=== PATIENT | male | born 1970 | race Caucasian/White ===

== ENCOUNTER 2022-12-19 12:06 | Outpatient (AMB) | payer OTHER, SELFPAY ==
[2022-12-19 12:10] VITALS: BP 140/82; PULSE 121; O2SAT 96; BMI 15.9
--- NOTE | 2022-12-19 12:10 | A.OFFPC_ITS ---
Vital Signs 12/19/22 12:10 Height 5 ft 9 in Weight 107 lb 8 oz BMI 15.9 BP 140/82 H Blood Pressure Location Lt brachial Position Sitting Pulse 121 H Pulse Source Pulse Oximeter Pulse Oximetry (%) 96 Oxygen Delivery Method Room Air Intake Visit Reasons: Extended exam with f/u labs and health maint. Intake Note: Patient is here for his physical today. Allergies No Known Allergies [No Known Allergies*] Allergy (Verified 12/19/22 12:13) Tobacco use date assessed: 07/17/22 Dental Screening Dental Screen Date: 12/19/22 Did you have a dental visit in the last 12 months?: No Did you have a dental problem in the last 6 months where you did not have access to dental care?: No Was dental information given to patient?: Yes HPI Extended exam with f/u labs and health maint. HPI Details 52 y/o male presents for an extended exam with f/u labs and health main tenance. No recent labs to review. Blood pressure today 140/82. [facility] Social History (Reviewed 12/19/22 @ 12:16 by Lolly Hernandez [facility]) Housing: House Patient Tobacco Use Status: Current everyday Tobacco user Cigarettes Per Day: 2 e-Cigarette/Vaping Use: Never Used service: No Current occupational status: unemployed Current occupational exposures/hazards: No Cognitive needs: No Hearing needs: No Vision needs: No Questionnaire PHQ-9 Over the last 2 weeks, how often have you been bothered by any of the following problems? 1. Little interest or pleasure in doing things: not at all 2. Feeling down, depressed, or hopeless: several days 3. Trouble falling or staying asleep, or sleeping too much: more than half the days 4. Feeling tired or having little energy: not at all 5. Poor appetite or overeating: several days 6. Feeling bad about yourself - or that you are a failure or have let yourself or your family down: several days 7. Trouble concentrating on things, such as reading the newspaper or watching television: not at all 8. Moving or speaking so slowly that other people could have noticed. Or the opposite - being so fidgety or restless that you have been moving around a lot more than usual: not at all 9. Thoughts that you would be better off or of hurting yourself in some way: not at all Total score: 5 Source: Developed by Drs. Yusuf Damon, Lizzeth Rouse, Mick Guallpa and colleagues, with an educational lorelei from [employer]. TAMMY-7 AMB Questionnaire TAMMY-7 Date TAMMY - 7 assessed: 12/19/22 Feeling nervous, anxious, or on edge: 2 = More than half the days Not being able to stop or control worryin = More than half the days Worrying too much about different things: 2 = More than half the days Trouble relaxin = Not at all Being so restless that it is hard to sit still: 0 = Not at all Becoming easily annoyed or irritable: 0 = Not at all Feeling afraid as if something awful might happen: 0 = Not at all Total TAMMY-7 score (0-4 normal; 5-9 mild; 10-14 moderate; 15-21 severe): 6 Source: Developed by Drs. Yusuf Damon, Lizzeth Rouse, Mick Guallpa and colleagues, with an educational lorelei from [employer]. Review of Systems Const Denies chills, Denies fatigue, Denies fever(s), Denies headache(s) and Denies weakness Eyes Denies change in vision ENT Denies dizziness, Denies headache(s), Denies hearing loss, Denies nasal congestion, Denies sinus pain, Denies sinus pressure and Denies sore throat Card Denies chest pain, Denies lightheadedness, Denies dyspnea and Denies other (palpitations) Resp Denies cough, Denies dyspnea and Denies wheezing GI Denies abdominal pain, Denies melena, Denies hematochezia, Denies change in bowel habits, Denies dyspepsia and Denies nausea Denies hematuria and Denies dysuria Musc Denies abnormal gait, Denies myalgias, Denies arthralgias, Denies numbness and Denies tingling Skin/Breast Denies rash, Denies unusual bruising and Denies wounds Neuro Denies abnormal gait, Denies dizziness, Denies headache(s), Denies memory loss, Denies numbness, Denies Sensory deficit (Neuro), Denies tingling and Denies weakness Psych Denies anxiety, Denies depression and Denies memory loss Endo Denies cold intolerance, Denies fatigue, Denies heat intolerance, Denies polydipsia and Denies polyuria Edward/Lymph Denies easy bleeding and Denies easy bruising Aller/Immun Denies wheezing Physical exam (Primary Care) Vital Signs: Last Vital Signs Pulse 121 H 12/19/22 12:10 BP 140/82 H 12/19/22 12:10 Pulse Ox 96 12/19/22 12:10 Oxygen Delivery Method Room Air 12/19/22 12:10 BMI result Body Mass Index 15.9 Tobacco/Smoking Status: Tobacco use Status Tobacco use date assessed 07/17/22 12/19/22 12:22 Patient Tobacco Use Status Current everyday Tobacco 12/19/22 12:22 e-Cigarette/Vaping Use Never Used 12/19/22 12:22 PHQ-9: PHQ-9 Score PHQ-9: Total score 5 12/19/22 12:22 Const General: no acute distress, well developed, alert and awake Nutritional Appearance: underweight Orientation/consciousness: patient oriented x3 HENMT Head: Yes normocephalic and Yes atraumatic Ears: hearing grossly normal bilaterally and TM's normal bilaterally General nose exam: Normal external nose present and Normal nares present Mouth: Normal oral and palatal mucosa present and moist mucous membranes Teeth and gingiva: dentition normal Throat: Yes posterior oropharynx normal Eyes General: appearance normal, both eyes and all related structures Pupils: Equal, round and reactive pupils present and Pupil accommodation reflex normal EOM: EOMs intact bilaterally Neck Neck: Yes normal visual inspection, Yes no lymphadenopathy and Yes trachea midline Thyroid: Thyroid normal Carotids: no bruits Lymphatic: no lymphadenopathy noted Chest Chest palpation & inspection: normal inspection of the chest Resp Effort & Inspection: normal respiratory effort Auscultation: clear to auscultation bilaterally Cardio Rate: regular rate Rhythm: regular rhythm Heart sounds: S1 normal heart sound present, S2 normal heart sound present, no gallops, no murmurs and no rubs Bruits: no abdominal aortic bruits and no carotid bruits GI Palpation (GI): No Abdominal aortic bruit present, Soft to palpation, nontender, No hepatosplenomegaly present and No Rebound tenderness present Auscultation: normal bowel sounds General: Yes no CVA tenderness Back/Spine/Pelvis Back: no CVA tenderness Cervical Spine: cervical ROM normal and No Cervical spine tenderness Thoracic/Lumbar Spine: thoraco-lumbar ROM normal, No pain with thoraco-lumbar ROM, No thoracic spinal tenderness and No lumbar spinal tenderness Skin Lesions: no lesions Rashes: no rashes Trauma: no lacerations or abrasions Wounds: no wounds Nails: normal Neuro General: patient oriented x3 Cranial nerves: Yes Equal, round and reactive pupils present Cognition (Neuro): normal cognition Gait exam (Neuro): Normal gait present Motor exam (neuro): 5/5 motor strength present throughout Sensory Exam: No Sensory deficit (Neuro) Deep tendon reflexes (DTR's): Right patellar reflex intensity grade: 2+ and Left patellar reflex intensity grade: 2+ Extrem General: Yes normal to inspection and No edema Psych Appearance: grossly normal Affect: normal affect Attitude: cooperative Thought process: Normal thought process present Assessment and Plan Assessment & Plan (1) Hypertension: Code(s): I10 - Essential (primary) hypertension Plan: Goal is less than 140/90 Will give him metoprolol ER 25 daily (2) Alcohol use: Code(s): Z78.9 - Other specified health status Plan: Patient says he is working on this and I encouraged weaning and cessation (3) Tachycardia: Code(s): R00.0 - Tachycardia, unspecified Plan: Check EKG As above will use metoprolol (4) Failure to thrive in adult: Code(s): R62.7 - Adult failure to thrive Plan: Patient is severely underweight Start Ensure Will follow-up (5) Screening for colon cancer: Code(s): Z12.11 - Encounter for screening for malignant neoplasm of colon Plan: Refer to Gastroenterology for 1st screening colonoscopy (6) Screening for prostate cancer: Code(s): Z12.5 - Encounter for screening for malignant neoplasm of prostate Plan: Check PSA (7) Adult general medical exam: Code(s): Z00.00 - Encounter for general adult medical examination without abnormal findings Orders: Orders ECG 12 lead EKG Today I10 - Essential (primary) hypertension, R00.0 - Tachycardia, unspecified Medications: New metoprolol succinate ER 25 mg PO DAILY 30 days 30 tabs 2RF food supplemt, lactose-reduced (Ensure oral liquid) 1 ea PO DAILY 30 days 7,110 mL 4RF J44.9 - Chronic obstructive pulmonary disease, unspecified, R62.7 - Adult failure to thrive, R63.6 - Underweight food supplemt, lactose-reduced (Ensure oral liquid) 1 ea PO DAILY 30 days 7,110 mL 4RF J44.9 - Chronic obstructive pulmonary disease, unspecified, R62.7 - Adult failure to thrive, R63.6 - Underweight Coding Level of Care Code Est Pt Level 4 (16825) Diagnoses Hypertension I10 Alcohol use Z78.9 Tachycardia R00.0 Failure to thrive in adult R62.7 Screening for colon cancer Z12.11 Screening for prostate cancer Z12.5 Adult general medical exam Z00.00
[2022-12-19 14:29] LABS: MANUAL DIFF FLAG NO
[2022-12-19 14:31] LABS: Basophils Absolute Auto 0.1 X10*3/uL (0.0-0.2); Basophils Percent Auto 0.7 % (0-2); Eosinophils Absolute Auto 0.1 X10*3/uL (0.0-0.4); Eosinophils Percent Auto 0.6 % (0-4); Hematocrit 47.2 % (42.0-52.0); Hemoglobin 16.5 g/dl (14.0-18.0); Imm Gran Abs Auto 0.03 X10*3/uL (0.00-0.03); Imm Gran Pct Auto 0.3 % (0.0-0.4); Lymphocytes Absolute Auto 1.9 X10*3/uL (1.2-4.9); Lymphocytes Percent Auto 17.6 % (20-40); Mean Corpuscular Hemoglobin 34.4 pg (27.0-33.0); Mean Corpuscular Volume 98.3 fL (80.0-98.0); Mean Platelet Volume 10.7 fL (9.4-12.4); Monocytes Absolute Auto 0.7 X10*3/uL (0.1-1.2); Monocytes Percent Auto 6.7 % (2-11); Neutrophils Percent Auto 74.1 % (45-73); Platelet Count 292 X10*3/uL (160-400); Red Cell Distribution Width 11.6 % (11.0-16.0); White Blood Count 10.8 X10*3/uL (4.8-10.8)
[2022-12-19 15:36] LABS: Prostate Specific Antigen Scr 1.46 ng/mL (<0.05-4.0)
[2022-12-19 15:44] LABS: Alanine Aminotransferase 22 U/L (0-40); Albumin Level 4.2 g/dL (3.5-5.0); Alkaline Phosphatase 88 U/L (39-117); Anion Gap 16 (12-20); Aspartate Amino Transferase 29 U/L (5-37); Bilirubin Total 0.4 mg/dL (0.0-1.0); Blood Urea Nitrogen 9 mg/dL (9-16); Calcium 9.5 mg/dL (8.4-10.2); Carbon Dioxide 27 mmol/L (22-29); Chloride 102 mmol/L (96-108); Cholesterol 154 mg/dL; Creatinine Clr Calc Pharmacy 89.6; Estimated Glomerular Filt Rate > 60; Glucose Fasting 98 mg/dL (60-99); HDL Cholesterol 71 mg/dL; LDL Cholesterol Calculated 71 mg/dl; Potassium 4.3 mmol/L (3.3-5.1); Sodium 141 mmol/L (135-145); Total Protein 7.2 g/dL (6.5-8.0); Triglycerides 64 mg/dL
== END 2022-12-19 13:18 | disposition home or self-care (01) ==
PROVIDERS: PCP Family Medicine; Visit Provider Family Medicine
DX: I10 Essential (primary) hypertension (principal); Z78.9 Other specified health status; R00.0 Tachycardia, unspecified; R62.7 Adult failure to thrive; Z12.11 Encounter for screening for malignant neoplasm of colon; Z12.5 Encounter for screening for malignant neoplasm of prostate; Z00.00 Encounter for general adult medical examination without abnormal findings
CPT/HCPCS: 99214

== ENCOUNTER 2023-09-25 10:36 | Emergency (ER) | payer OTHER, SELFPAY ==
--- NOTE | ~2023-09-25 | XR_ITS ---
EXAMINATION: XR CHEST CLINICAL INFORMATION: Dyspnea. COMPARISON: Most recent CTA chest dated 06/08/2019. TECHNIQUE: 2 views of the chest were obtained. FINDINGS: Diffuse emphysematous changes are redemonstrated with scarring in the right upper lobe, similar when compared to the prior examination. Chronic interstitial prominence is unchanged. No new focal airspace consolidation. No pleural effusion or pneumothorax. Stable cardiomediastinal silhouette. XR/XR chest 2V IMPRESSION: 1. No acute cardiopulmonary findings. 2. Diffuse emphysematous changes with right upper lobe scarring, unchanged.
[2023-09-25 11:18] VITALS: BP 142/96; PULSE 120; RESP 20; TEMP 36.6; O2SAT 93; BMI 15.5
--- NOTE | 2023-09-25 11:18 | ED_ITS ---
HPI - General Adult General Chief complaint: Dyspnea Stated complaint: SOB Time Seen by Provider: 09/25/23 21:21 Source: patient Mode of arrival: ambulatory Limitations: no limitations History of Present Illness HPI narrative: Patient comes to the emergency room complaining of couple of months of wheezing, shortness of breath with exertion. Patient states that he is running out of his inhalers, Spiriva and albuterol. Patient denies any fever or chills. Patient states that coughing is at baseline. Related Data Previous Rx's ?Medication ?Instructions ?Recorded fluticasone propionate 50 1 inh inhalation Q12H 30 days #60 07/17/22 mcg/actuation blister powder for ea inhalation (Flovent Diskus) ipratropium 0.5 mg-albuterol 3 mg 3 ml inhalation Q6-8H PRN wheezing 07/17/22 (2.5 mg base)/3 mL nebulization 30 days #180 mL soln albuterol sulfate 90 mcg/actuation 2 puff inhalation Q4-6H PRN 07/18/22 aerosol inhaler (Ventolin HFA) shortness of breath or wheezing #8.5 grams albuterol sulfate 90 mcg/actuation 2 puff inhalation Q4-6H PRN 07/23/22 aerosol inhaler (ProAir HFA) shortness of breath or wheezing 30 days #8.5 grams metoprolol succinate 25 mg 25 mg PO DAILY 30 days #30 tabs 12/19/22 tablet,extended release 24 hr food supplemt, lactose-reduced 1 ea PO DAILY 30 days #7,110 mL 02/01/23 (Ensure oral liquid) albuterol sulfate 90 mcg/actuation 2 puff inhalation Q4-6H PRN 09/25/23 aerosol inhaler shortness of breath or wheezing #8.5 grams doxycycline hyclate 100 mg capsule 100 mg PO BID #10 caps 09/25/23 prednisone 50 mg tablet 50 mg PO DAILY #4 tabs 09/25/23 tiotropium bromide 1.25 2 puff inhalation BEDTIME #4 grams 09/25/23 mcg/actuation mist for inhalation (Spiriva Respimat) Allergies Allergy/AdvReac Type Severity Reaction Status Date / Time No Known Allergies Allergy Verified 09/25/23 11:19 [No Known Allergies*] Review of Systems 2 Review of Systems: Constitutional : No Weight loss, No Fever, No Chills, No Night Sweats, No Fatigue, No Malaise ENT/Mouth : No Hearing loss, No Ear Pain, No Nasal Congestion, No Sinus Pain, No Hoarseness, No sore throat, No Rhinorrhea, No Swallowing Difficulty Eyes: No Eye Pain, No Swelling, No Redness, No Foreign Body, No Discharge, No Vision Changes Cardiovascular : No Chest Pain, No SOB, No Dyspnea on Exertion, No Orthopnea, No Edema, No Palpitations Respiratory : Complaining of cough at baseline, more wheezing than usual, running out of inhalers Gastrointestinal : No Nausea, No Vomiting, No Diarrhea, No Constipation, No abdominal Pain, No Hematochezia, No Melena Genitourinary : no irregular bleeding, No Dysuria, No Urinary Frequency, No Hematuria, No Urinary Incontinence, No Urgency, No Flank Pain, No Urinary Flow Changes, No Hesitancy Musculoskeletal : No joint pain, No Myalgias, No Joint Swelling Skin : No Skin Lesions, No rash Neuro : No Weakness, No Numbness, No Paresthesias, No Loss of Consciousness, No Dizziness, No Headache Psych : No Anxiety/Panic, No Depression, No SI/HI/AH/VH, No Social Issues, Heme/Lymph: No Bruising, No Bleeding,No Lymphadenopathy Endocrine : No Polyuria, No Polydipsia, No Temperature Intolerance [facility] Past Medical History Medical History (Updated 09/25/23 @ 23:15 by Michelle Ram MD) Alcohol use Hypertension COPD (chronic obstructive pulmonary disease) Social History Social History Housing: House Patient Tobacco Use Status: Current everyday Tobacco user Cigarettes Per Day: 2 e-Cigarette/Vaping Use: Never Used Advance Directives: No Advance Directives Information Provided: No service: No Current occupational status: unemployed Current occupational exposures/hazards: No Cognitive needs: No Hearing needs: No Vision needs: No Physical Exam ED Vital Signs: Vital Signs - 24 hr 09/25/23 11:18 09/25/23 21:21 Temperature 97.8 F 97.9 F Pulse Rate 120 H 101 H Respiratory Rate 20 19 Blood Pressure 142/96 H 168/97 H Pulse Oximetry 93 94 Oxygen Delivery Method Room Air Room Air BMI result Body Mass Index 15.5 Const Other: Appearance: Alert. Oriented X3. No acute distress. Eyes: Pupils equal, round and reactive to light. ENT: Pharynx normal. Neck: Normal inspection. Neck supple. No lymph nodes noted. No crepitus CVS: Normal heart rate and rhythm. Pulses normal. Normal S1 and S2 Respiratory: No respiratory distress. Decreased breath sounds bilaterally, bilateral wheezing, no rales or crackles Abdomen: Soft and nontender. No rigidity. No distention. Skin: Skin warm and dry. Normal skin color. Normal skin turgor. Extremities: No lower extremity edema. No Lacerations. No Rash Neuro: Oriented X 3. No motor deficit. No sensory deficit. Moving all extremities. No slurred speech. CN 2 through 12 grossly intact Psych: calm, cooperative, normal affect Course Course Course Narrative: This is a rapid medical exam performed by Rufus Lozoya NP: Additional HPI, ROS, PE not included below will be deferred to primary provider. Patient is a 53-year-old male with history of HTN, smoking, alcohol use, COPD presenting to the ED with complaint of shortness of breath. States he has been out of his COPD medications/inhalers for about one month. States breathing hasn't been good for a long time, has not seen PCP for over a year. Presenting today at urging of brother. Lung sounds diminished throughout with inspiratory and expiratory wheezing, tachycardic, speaking easily in full sentences. Plan: viral swabs, labs, EKG, CXR Medications Administered Discontinued Medications Generic Name Dose Route Start Last Admin Trade Name Freq PRN Reason Stop Dose Admin Doxycycline Monohydrate 100 mg 09/25/23 21:32 09/25/23 21:49 Doxycycline Monohydrate 100 Mg Capsule PO 09/25/23 21:33 100 mg ONCE ONE Administration Sodium Chloride 1,000 mls @ 999 mls/hr 09/25/23 21:32 09/25/23 21:49 Ns IVCONT 09/25/23 22:32 999 mls/hr .Q1H1M ONE Administration Methylprednisolone Sodium Succinate 125 mg 09/25/23 21:32 09/25/23 21:49 Methylprednisolone Sod Succ 125 Mg/2 Ml Vial IVPUSH 09/25/23 21:33 125 mg ONCE ONE Administration Medical Decision Making Medical Decision Making MDM Narrative: -my interpretation of labs, hematology shows an increased hemoglobin and hematocrit, patient does seem to be dehydrated, patient admits to drinking alcohol another enough water. -patient mildly wheezing at this time, patient states that this time he feels well and declined a nebulization treatment, patient agreeable to IV Solu-Medrol and IV fluids. -my interpretation of chest x-ray: No obvious signs of pneumonia, hyperinflated lungs bilaterally -patient was ambulated in the emergency room, oxygen saturation did not drop below 91% -patient has chronic bronchitis, given the length of his symptoms, patient was given doxycycline. -also, patient was giving a referral/information to schedule an appointment with pulmonology Differential Diagnosis Differential Diagnoses: The differential diagnosis associated with the presentation includes (COPD, viral URI, COVID, influenza, deconditioning) Admission/Observation Consideration of admission/observation: Escalation of care including admission/observation considered (Given patient's history and length of symptoms, observation considered) Lab Data MDM Lab Attestation statement: I reviewed the patient's lab results. 09/25/23 11:49 09/25/23 11:49 Labs: Lab Results 09/25/23 09/25/23 09/25/23 Range/Units 11:49 21:47 21:53 WBC 10.5 (4.8-10.8) X10*3/uL RBC 5.36 (4.60-5.80) X10*6/uL Hgb 18.7 H (14.0-18.0) g/dl Hct 53.5 H (42.0-52.0) % MCV 99.8 H (80.0-98.0) fL MCH 34.9 H (27.0-33.0) pg MCHC 35.0 (31.0-36.0) g/dl RDW 12.7 (11.0-16.0) % Plt Count 256 (160-400) X10*3/uL MPV 10.2 (9.4-12.4) fL Immature Gran % (Auto) 0.4 (0.0-0.4) % Neut % (Auto) 76.2 H (45-73) % Lymph % (Auto) 12.9 L (20-40) % Wolfe % (Auto) 8.8 (2-11) % Eos % (Auto) 0.9 (0-4) % Baso % (Auto) 0.8 (0-2) % Lymph # (Auto) 1.4 (1.2-4.9) X10*3/uL Wolfe # (Auto) 0.9 (0.1-1.2) X10*3/uL Eos # (Auto) 0.1 (0.0-0.4) X10*3/uL Baso # (Auto) 0.1 (0.0-0.2) X10*3/uL Abs Immat Gran (auto) 0.04 H (0.00-0.03) X10*3/uL Absolute Neuts (auto) 8.0 (2.0-8.3) x10*3/uL Absolute Nucleated RBC 0.000 (0.0-0.012) X10*3/uL Nucleated RBC % (auto) 0.0 (0.0-0.2) /100WBC VBG pH 7.41 (7.32-7.43) VBG pCO2 51 mmHg VBG pO2 58 mmHg VBG HCO3 33 H (22-26) mmol/L VBG O2 Saturation 90.0 % VBG Base Excess 7.1 mmol/L Sodium 140 (135-145) mmol/L Potassium 4.1 (3.3-5.1) mmol/L Chloride 96 (96-108) mmol/L Carbon Dioxide 31 H (22-29) mmol/L Anion Gap 17 (12-20) BUN 5 L (9-16) mg/dL Creatinine 0.71 (0.5-1.4) mg/dL Estim Creat Clear Calc 78.9 Estimated GFR > 60 Random Glucose 98 (60-115) mg/dL Calcium 9.8 (8.4-10.2) mg/dL Total Bilirubin 0.5 (0.0-1.0) mg/dL AST 22 (5-37) U/L ALT 14 (0-40) U/L Alkaline Phosphatase 121 H (39-117) U/L B-Natriuretic Peptide 15 (<100) pg/mL Total Protein 7.9 (6.5-8.0) g/dL Albumin 4.3 (3.5-5.0) g/dL Ethyl Alcohol < 10 mg/dL Influenza Type A (PCR) NEGATIVE (Negative) Influenza Type B (PCR) NEGATIVE (Negative) RSV RNA Qual (PCR) NEGATIVE (Negative) SARS-CoV-2 RNA (RT-PCR) NEGATIVE (Negative) Independent Interpretation I performed an independent interpretation of an: EKG and Plain X-Ray Chronic Conditions Patient?s care impacted by: Other (COPD) Critical Care Time Critical Care Time Critical Care Time: Yes Total Critical Care Time: 35 Attestation: I have personally provided critical care time. Time includes review of lab data, radiology results, discussion with consultants, and monitoring for potential decompensation. Intervention performed as documented. Discharge Plan Discharge Clinical Impression: Acute viral bronchitis, Acute dehydration Patient Disposition: Home, Self-Care Instructions: Dehydration (ED), Acute Bronchitis (ED) Additional Instructions: Please follow-up with your primary care physician tomorrow. If you have any worsening or new symptoms, please return to the emergency room or call 911 Prescriptions: New Spiriva Respimat 1.25 mcg/actuation mist 2 puff inhalation BEDTIME Qty: 4 0RF albuterol sulfate 90 mcg/actuation HFA aerosol inhaler 2 puff inhalation Q4-6H PRN (Reason: shortness of breath or wheezing) Qty: 8.5 0RF doxycycline hyclate 100 mg capsule 100 mg PO BID Qty: 10 0RF prednisone 50 mg tablet 50 mg PO DAILY Qty: 4 0RF No Action albuterol sulfate [Ventolin HFA] 90 mcg/actuation HFA aerosol inhaler 2 puff inhalation Q4-6H PRN (Reason: shortness of breath or wheezing) Qty: 8.5 0RF albuterol sulfate [ProAir HFA] 90 mcg/actuation HFA aerosol inhaler 2 puff inhalation Q4-6H PRN (Reason: shortness of breath or wheezing) 30 Days Qty: 8.5 3RF Ensure Liquid 1 ea PO DAILY 30 Days Qty: 7110 4RF ipratropium-albuterol 0.5 mg-3 mg(2.5 mg base)/3 mL solution for nebulization 3 ml inhalation Q6-8H PRN (Reason: wheezing) 30 Days Qty: 180 3RF Flovent Diskus 50 mcg/actuation blister with device 1 inh inhalation Q12H 30 Days Qty: 60 3RF metoprolol succinate 25 mg tablet extended release 24 hr 25 mg PO DAILY 30 Days Qty: 30 2RF Referrals: Wilber Haney MD [Physician] - 09/26/23 Print Language: [place]
--- NOTE | 2023-09-25 11:21 | ECG_ITS ---
Test Reason : tachy Blood Pressure : / mmHG Vent. Rate : 123 BPM Atrial Rate : 123 BPM P-R Int : 130 ms QRS Dur : 062 ms QT Int : 308 ms P-R-T Axes : 086 -38 087 degrees QTc Int : 440 ms Sinus tachycardia Biatrial enlargement Left axis deviation Anteroseptal infarct (cited on or before 08-JUN-2019) Abnormal ECG When compared with ECG of 08-JUN-2019 17:28, Questionable change in initial forces of Septal leads Referred By: Maureen Lozoya Electronically Signed By:GOMEZ BURDICK MD
[2023-09-25 11:53] LABS: MANUAL DIFF FLAG NO
[2023-09-25 11:54] LABS: Basophils Absolute Auto 0.1 X10*3/uL (0.0-0.2); Basophils Percent Auto 0.8 % (0-2); Eosinophils Absolute Auto 0.1 X10*3/uL (0.0-0.4); Eosinophils Percent Auto 0.9 % (0-4); Hematocrit 53.5 % (42.0-52.0); Hemoglobin 18.7 g/dl (14.0-18.0); Imm Gran Abs Auto 0.04 X10*3/uL (0.00-0.03); Imm Gran Pct Auto 0.4 % (0.0-0.4); Lymphocytes Absolute Auto 1.4 X10*3/uL (1.2-4.9); Lymphocytes Percent Auto 12.9 % (20-40); Mean Corpuscular Hemoglobin 34.9 pg (27.0-33.0); Mean Corpuscular Volume 99.8 fL (80.0-98.0); Mean Platelet Volume 10.2 fL (9.4-12.4); Monocytes Absolute Auto 0.9 X10*3/uL (0.1-1.2); Monocytes Percent Auto 8.8 % (2-11); Neutrophils Percent Auto 76.2 % (45-73); Platelet Count 256 X10*3/uL (160-400); Red Blood Count 5.36 X10*6/uL (4.60-5.80); Red Cell Distribution Width 12.7 % (11.0-16.0); White Blood Count 10.5 X10*3/uL (4.8-10.8)
[2023-09-25 12:09] LABS: Alanine Aminotransferase 14 U/L (0-40); Albumin Level 4.3 g/dL (3.5-5.0); Alkaline Phosphatase 121 U/L (39-117); Anion Gap 17 (12-20); Aspartate Amino Transferase 22 U/L (5-37); Bilirubin Total 0.5 mg/dL (0.0-1.0); Blood Urea Nitrogen 5 mg/dL (9-16); Calcium 9.8 mg/dL (8.4-10.2); Carbon Dioxide 31 mmol/L (22-29); Chloride 96 mmol/L (96-108); Creatinine Clr Calc Pharmacy 78.9; Estimated Glomerular Filt Rate > 60; Glucose Random 98 mg/dL (60-115); Potassium 4.1 mmol/L (3.3-5.1); Sodium 140 mmol/L (135-145); Total Protein 7.9 g/dL (6.5-8.0)
[2023-09-25 12:31] LABS: Influenza A PCR NEGATIVE (Negative); Influenza B PCR NEGATIVE (Negative); Resp Syncy Virus RNA Qual PCR NEGATIVE (Negative); SARS COV2 PCR INHOUSE NEGATIVE (Negative)
[2023-09-25 21:21] VITALS: BP 168/97; PULSE 101; RESP 19; TEMP 36.6; O2SAT 94
--- NOTE | 2023-09-25 21:40 | MHC.EDTECH ---
@21:35, Took patient for a walking o2. While in bed resting 95% RM Air. When he's sitting up in the bed o2 93% RM Air. While walking (approximately 80 steps) o2 dropped to 91% RM Air. No C/O of dizziness, or lightheaded. Steady gait through the whole trail. Patient is back in bed resting comfortably, back on the monitor.
[2023-09-25] MEDS: methylPREDNISolone Sod Succ 125 MG/2 ML VIAL IVPUSH (21:49)
[2023-09-25] MEDS: 0.9 % Sodium Chloride 1,000 ML 999 ML IVCONT (21:49)
[2023-09-25] MEDS: Doxycycline Monohydrate 100 MG CAPSULE PO (21:49)
[2023-09-25 22:00] LABS: VBG Base Excess 7.1 mmol/L; VBG HCO3 33 mmol/L (22-26); VBG pCO2 51 mmHg; VBG pH 7.41 (7.32-7.43); VBG pO2 58 mmHg
[2023-09-25 22:00] LABS: Venous Blood Gas Refer to POC result
[2023-09-25 22:11] LABS: Ethanol < 10 mg/dL
[2023-09-25 22:18] LABS: B Type Natriuretic Peptide 15 pg/mL (<100)
[2023-09-25 23:30] VITALS: BP 167/92; PULSE 98; RESP 19; TEMP 36.6; O2SAT 93
== END 2023-09-25 23:32 | disposition home or self-care (01) ==
PROVIDERS: Registered Nurse Emergency; Emergency Provider Emergency Medicine
DX: J20.8 Acute bronchitis due to other specified organisms (principal); E86.0 Dehydration; R06.02 Shortness of breath; Z03.818 Encounter for observation for suspected exposure to other biological agents ruled out; R06.2 Wheezing; J44.9 Chronic obstructive pulmonary disease, unspecified; I10 Essential (primary) hypertension; Z79.899 Other long term (current) drug therapy
CPT/HCPCS: 0241U; 36415; 71046; 80053; 80307; 82803; 83880; 85025; 93005; 96361; 96374; 99284; 99285; J2919

== ENCOUNTER → 2023-09-25 11:21 | Outpatient (BNV) | payer OTHER, SELFPAY | PROVIDERS: Emergency Provider Emergency Medicine; Visit Provider Internal Medicine Cardiovascular Disease | DX: R00.0 Tachycardia, unspecified (principal) | CPT/HCPCS: 93010 ==

== ENCOUNTER 2023-10-02 14:20 | Outpatient (AMB) | payer OTHER, SELFPAY ==
[2023-10-02 14:24] VITALS: BP 138/78; PULSE 112; O2SAT 98; BMI 15.7
--- NOTE | 2023-10-02 14:24 | MHC.PC.OV ---
Vital Signs 10/02/23 14:24 Height 5 ft 9 in Weight 106 lb BMI 15.7 BP 138/78 Blood Pressure Location Lt brachial Position Sitting Pulse 112 H Pulse Source Pulse Oximeter Pulse Oximetry (%) 98 Oxygen Delivery Method Room Air Intake Visit Reasons: [facility] [place] ED 09/25/23 copd/asthma exacerbation Intake Note: Patient is here for follow up on COPD, and asthma exacerbation, stated that he was out of his medication. Allergies No Known Allergies [No Known Allergies*] Allergy (Verified 10/02/23 14:26) Medication List - Last Reconciled 10/02/23 by Homero Livingston MD albuterol sulfate 90 mcg/actuation 2 puffs inhalation Q4-6H PRN albuterol sulfate 90 mcg/actuation (Ventolin HFA) 2 puffs inhalation Q4-6H PRN albuterol sulfate 90 mcg/actuation (ProAir HFA) 2 puffs inhalation Q4-6H PRN 30 days fluticasone propionate 50 mcg/actuation (Flovent Diskus) 1 inh inhalation Q12H 30 days food supplemt, lactose-reduced (Ensure oral liquid) 1 ea PO DAILY 30 days ipratropium-albuterol 0.5 mg-3 mg(2.5 mg base)/3 mL 3 mL inhalation Q6-8H PRN 30 days metoprolol succinate ER 25 mg PO DAILY 30 days prednisone 50 mg PO DAILY tiotropium bromide 1.25 mcg/actuation (Spiriva Respimat) 2 puffs inhalation BEDTIME Tobacco use date assessed: 10/02/23 Dental Screening Dental Screen Date: 10/02/23 Did you have a dental visit in the last 12 months?: Yes Did you have a dental problem in the last 6 months where you did not have access to dental care?: No Was dental information given to patient?: Patient declined HPI [facility] [place] ED 09/25/23 copd/asthma exacerbation HPI Details 53 y/o male presents to f/u [facility] [place] ED visit 09/25/23 for COPD/asthma exacerbation. Had come in to the emergency dept. with complaints of a couple months of wheezing, shortness of breath with exertion. Chest x-ray had showed no obvious signs of pneumonia, hyperinflated lungs bilaterally. Pt was given spiriva, albuterol inhaler, doxycycline and prednisone. Blood pressure today 138/78, 112p. PFSH Medical History (Updated 10/02/23 @ 14:48 by Yusuf Rader) Fracture of fifth metacarpal bone of right hand Broken collarbone Broken leg Alcohol use Hypertension COPD (chronic obstructive pulmonary disease) Surgical History (Updated 10/02/23 @ 14:32 by Lolly Hernandez CMA) H/O removal of neck cyst Family History (Updated 10/02/23 @ 14:34 by Lolly Hernandez CMA) Father Substance abuse Paternal Grandfather Substance abuse Mother Mental health disorder Social History Housing: House Patient Tobacco Use Status: Current everyday Tobacco user Cigarettes Per Day: 2 e-Cigarette/Vaping Use: Never Used service: No Current occupational status: unemployed Current occupational exposures/hazards: No Cognitive needs: No Hearing needs: No Vision needs: No Questionnaire PHQ-9 Over the last 2 weeks, how often have you been bothered by any of the following problems? 1. Little interest or pleasure in doing things: several days 2. Feeling down, depressed, or hopeless: several days 3. Trouble falling or staying asleep, or sleeping too much: nearly every day 4. Feeling tired or having little energy: not at all 5. Poor appetite or overeating: several days 6. Feeling bad about yourself - or that you are a failure or have let yourself or your family down: several days 7. Trouble concentrating on things, such as reading the newspaper or watching television: not at all 8. Moving or speaking so slowly that other people could have noticed. Or the opposite - being so fidgety or restless that you have been moving around a lot more than usual: not at all 9. Thoughts that you would be better off or of hurting yourself in some way: several days Total score: 8 Depression Screening Interpretation: Positive Depression Screening Done: Yes 10957 - PHQ-9 Billing: Yes Source: Developed by Drs. Yusuf Damon, Lizzeth Rouse, Mick Guallpa and colleagues, with an educational lorelei from [employer]. Thrive Questionnaire Date Thrive assessed: 10/02/23 I am a: Patient What is your living situation today?: I have a steady place to live Within the past 12 months, did the food you bought not last and you didn't have the money to get more?: Never true Within the past 12 months, did you worry whether your food would run out before you got money to buy more?: Never true Do you have trouble paying for medicines?: No Do you have trouble getting transportation to medical appointments?: No Do you have trouble paying your heating and electricity bill?: No Do you have trouble taking care of your child, family member or friend?: Yes Do you have trouble with day-to-day activities such as bathing, preparing meals, shopping, managing finances, etc.?: No Are you currently unemployed and looking for a job?: I choose not to answer this question Are you interested in more education?: Yes THRIVE Score: 0 AUDIT C Alcohol Use Questionnaire (AUDIT-C) 1. How often do you have a drink containing alcohol?: 4 or more times a week 2. How many drinks containing alcohol do you have on a typical day when you are drinking?: 3 or 4 3. How often do you have six or more drinks on one occasion?: Weekly Total Score: 8 TAMMY-7 AMB Questionnaire TAMMY-7 Date TAMMY - 7 assessed: 10/02/23 Feeling nervous, anxious, or on edge: 1 = Several days Not being able to stop or control worryin = Several days Worrying too much about different things: 1 = Several days Trouble relaxin = Several days Being so restless that it is hard to sit still: 0 = Not at all Becoming easily annoyed or irritable: 0 = Not at all Feeling afraid as if something awful might happen: 0 = Not at all Total TAMMY-7 score (0-4 normal; 5-9 mild; 10-14 moderate; 15-21 severe): 4 Source: Developed by Drs. Yusuf Damon, Lizzeth Rouse, Mick Guallpa and colleagues, with an educational lorelei from [employer]. TAMMY-7 Assessment Billing TAMMY-7 Assessment Tool: TAMMY-7 Assessment 20312 ACT Questionnaire In the past 4 weeks, how much of the time did your asthma keep you from getting as much done at work, school or at home?: Some of the time During the past 4 weeks, how often have you had shortness of breath?: More than once a day During the past 4 weeks, how often did your asthma symptoms wake you up at night or earlier than usual in the morning?: Not at all During the past 4 weeks, how often have you had to use your rescue inhaler or nebulizer medication?: More than 3 times per day (twice a day) How would you rate your asthma control during the past 4 weeks?: Poorly controlled Score: 12 Review of Systems Const Denies chills, Denies fatigue, Denies fever(s), Denies headache(s) and Denies weakness ENT Denies dizziness and Denies headache(s) Card Denies dyspnea Resp Denies cough, Denies dyspnea, Denies wheezing and Denies other (shortness of breath) Musc Denies numbness and Denies tingling Neuro Denies dizziness, Denies headache(s), Denies numbness, Denies tingling and Denies weakness Psych Denies anxiety and Denies depression Endo Denies fatigue Aller/Immun Denies wheezing Physical exam (Primary Care) BMI result Body Mass Index 15.7 Tobacco/Smoking Status: Tobacco use Status Tobacco use date assessed 10/02/23 10/02/23 14:37 Patient Tobacco Use Status Current everyday Tobacco 10/02/23 14:37 e-Cigarette/Vaping Use Never Used 10/02/23 14:37 PHQ-9: PHQ-9 Score PHQ-9: Total score 8 10/02/23 14:41 Depression Screening Interpretation: Positive Thrive Assessment: Date of Thrive Assessment Date Thrive assessed 10/02/23 10/02/23 14:41 Const General: well developed; No acute distress Nutritional Appearance: well nourished and underweight Orientation/consciousness: patient oriented x3 [facility] Head: Yes normocephalic and Yes atraumatic Eyes General: appearance normal, both eyes and all related structures Pupils: Equal, round and reactive pupils present EOM: EOMs intact bilaterally Resp Effort & Inspection: normal respiratory effort Auscultation: clear to auscultation bilaterally Cardio Rate: tachycardic Rhythm: regular rhythm Heart sounds: S1 normal heart sound present, S2 normal heart sound present, no gallops, no murmurs and no rubs Neuro General: patient oriented x3 and gait normal Cranial nerves: Yes Equal, round and reactive pupils present Psych Affect: normal affect Assessment and Plan Assessment & Plan (1) COPD (chronic obstructive pulmonary disease): Code(s): J44.9 - Chronic obstructive pulmonary disease, unspecified Plan: COPD?with?recent?acute?bronchitis?at?ED Patient?was?given Spiriva Respimat 1.25 mcg/actuation mist 2 puff inhalation BEDTIME Qty: 4 0RF albuterol sulfate 90 mcg/actuation HFA aerosol inhaler 2 puff inhalation Q4-6H PRN (Reason: shortness of breath or wheezing) Qty: 8.5 0RF doxycycline hyclate 100 mg capsule 100 mg PO BID Qty: 10 0RF prednisone 50 mg tablet 50 mg PO DAILY Qty: 4 0RF Lungs?are?clear?today.??He?is?mostly?back?to?baseline. Continue?current?medication?regimen He?has?an?appointment?with?pulmonology (2) Hypertension: Code(s): I10 - Essential (primary) hypertension Plan: Overall?blood?pressure?is?rather?consistently?elevated Had?used?metoprolol?in?the?past.??He?ran?out?of?this?medication?and?did?not?refill?it However,?given?his?history?of?asthma?and?recent?exacerbation, will?try?diltiazem (3) Tachycardia: Code(s): R00.0 - Tachycardia, unspecified Plan: As?above,?given?patient's?history?of?asthma?and?recent?exacerbation,?will?use?diltiazem?for?blood?pressure?and?tachycardia Orders: Orders Comprehensive [place]. Panel Fast Today Z00.00 - Encounter for general adult medical examination without abnormal findings Complete Blood Count Auto Diff Today Z00.00 - Encounter for general adult medical examination without abnormal findings Lipid Panel Today Z00.00 - Encounter for general adult medical examination without abnormal findings Microalbumin, Random (w Creat) Today I10 - Essential (primary) hypertension TSH reflex Free T4 Today Z00.00 - Encounter for general adult medical examination without abnormal findings Prostate Specific Antigen Scr Today Z12.5 - Encounter for screening for malignant neoplasm of prostate UA and rflx microscopic Today Z00.00 - Encounter for general adult medical examination without abnormal findings Medications: New diltiazem HCl ER 60 mg PO BID 90 days 180 caps 3RF albuterol sulfate 2.5 mg (3 mL) inhalation Q4-6H 30 days PRN 180 mL 4RF shortness of breath or wheezing Discontinued metoprolol succinate ER Discontinued Reason: Doctor's Order 25 mg PO DAILY 30 days 30 tabs 2RF Coding Level of Care Code Est Pt Level 4 (04984) Diagnoses COPD (chronic obstructive pulmonary disease) J44.9 Hypertension I10 Tachycardia R00.0 Additional Codes TAMMY-7 Assessment Billing - TAMMY-7 Assessment Tool: TAMMY-7 Assessment 57149 ([id number])
== END 2023-10-02 15:02 | disposition home or self-care (01) ==
LOC: HO.HMGFM 14:21
PROVIDERS: PCP Family Medicine; Visit Provider Family Medicine
DX: J44.9 Chronic obstructive pulmonary disease, unspecified (principal); I10 Essential (primary) hypertension; R00.0 Tachycardia, unspecified
CPT/HCPCS: 99214

== ENCOUNTER 2023-10-21 10:51 | Outpatient (AMB) | payer OTHER, SELFPAY ==
--- NOTE | 2023-10-21 10:55 | A.OFFVIS_ITS ---
Vital Signs 10/21/23 10:56 Height 5 ft 9 in Weight 109 lb 2.061 oz BMI 16.1 BP 142/80 H Blood Pressure Location Lt brachial Position Sitting Pulse 116 H Pulse Source Pulse Oximeter Pulse Oximetry (%) 96 Oxygen Delivery Method Room Air Intake Visit Reasons: SOB/C ED Follow Up Allergies No Known Allergies [No Known Allergies*] Allergy (Verified 10/21/23 10:59) HPI HPI SOB/[facility] ED Follow Up: Details: King is a pleasant 53 year old male, current minimal smoker, with 20 pack year history, with underlying COPD and HTN. He was referred by ED for pulmonary evaluation. He was evaluated on 09/24 for COPD exacerbation, treated with doxycyline and prednisone with resolution of symptoms. Of note, he had been without his Spiriva and Flovent for quite some time. He received refills on Spiriva and albuterol at discharge. Today he denies wheezing, dyspnea or cough. He denies any seasonal allergies. He denies any prior history of asthma. He reports father, smoker, with COPD. He is interested in smoking cessation, previously failed nicotine patches, is requesting nicorette. 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 He denies prior PFT or chest CT. [facility] Medical History (Updated 10/21/23 @ 13:37 by Michelle Luna NP) Fracture of fifth metacarpal bone of right hand Broken collarbone Broken leg Alcohol use Hypertension COPD (chronic obstructive pulmonary disease) Surgical History (Updated 10/02/23 @ 14:32 by Lolly Hernandez CMA) H/O removal of neck cyst Family History (Updated 10/02/23 @ 14:34 by Lolly Hernandez CMA) Father Substance abuse Paternal Grandfather Substance abuse Mother Mental health disorder Social History Housing: House Patient Tobacco Use Status: Current everyday Tobacco user Cigarettes Per Day: 2 e-Cigarette/Vaping Use: Never Used service: No Current occupational status: unemployed Current occupational exposures/hazards: No Cognitive needs: No Hearing needs: No Vision needs: No Review of Systems Const Denies chills, Denies excessive sweating, Denies fever(s), Denies headache(s) and Denies night sweats Eyes Denies dry eyes, Denies irritation and Denies itchy eyes ENT Reports Normal hearing present, Denies headache(s), Denies nasal congestion, Denies nasal discharge, Denies post nasal drip and Denies sore throat Card Denies chest pain, Denies chest pain at rest, Denies chest pain with activity, Denies claudication, Denies leg edema, Denies dyspnea, Denies dyspnea on exertion, Denies orthopnea and Denies paroxysmal nocturnal dyspnea Resp Denies chest congestion, Denies cough, Denies excessive phlegm production, Solitario es pain on inspiration, Denies pain with cough, Denies dyspnea, Denies dyspnea on exertion, Denies stridor and Denies wheezing Musc Denies myalgias Neuro Reports Normal hearing present and Denies headache(s) Endo Denies excessive sweating Edward/Lymph Denies lymphadenopathy Aller/Immun Denies itchy eyes, Denies seasonal rhinorrhea and Denies wheezing Physical Exam Vital Signs: Last Vital Signs Pulse 116 H 10/21/23 10:56 BP 142/80 H 10/21/23 10:56 Pulse Ox 96 10/21/23 10:56 Oxygen Delivery Method Room Air 10/21/23 10:56 BMI result Body Mass Index 16.1 Const General: cooperative, healthy appearing, comfortable, no acute distress, well developed and alert Orientation/consciousness: patient oriented x3 Limitations: no limitations HEENT Head: Yes normal to inspection, Yes normocephalic and Yes atraumatic Ears: hearing grossly normal bilaterally and external ears normal Eyes General: appearance normal, both eyes and all related structures Eyelids: Yes eyelids normal Sclerae: sclerae normal EOM: EOMs intact bilaterally Neck Neck: Yes normal visual inspection and Yes no lymphadenopathy Lymphatic: no lymphadenopathy noted Chest Chest palpation & inspection: normal inspection of the chest Resp Other: expiratory wheezing throughout Effort & Inspection: normal respiratory effort, able to speak in complete sentences, no audible wheezes, no cough, no stridor, not tachypneic, no tripod positioning and no use of accessory muscles Cardio Jugular venous distension: no JVD Rate: regular rate Rhythm: regular rhythm Skin Other: warm, dry General skin exam: no rashes or lesions noted Neuro General: patient oriented x3 Cranial nerves: Yes Normal hearing present Cognition (Neuro): normal cognition Gait exam (Neuro): Normal gait present Extrem General: Yes normal to inspection, Yes capillary refill normal, Yes no clubbing, cyanosis or edema and Yes no pedal edema Psych Appearance: grossly normal and well kempt Speech and movement: Normal speech and movement present and Clear speech present Affect: normal affect Attitude: cooperative Thought process: Normal thought process present Thought content: Normal thought content present Insight: Good insight present (Psych) Judgement: Good judgement present (Psych) Assessment & Plan Assessment & Plan (1) COPD (chronic obstructive pulmonary disease): Code(s): J44.9 - Chronic obstructive pulmonary disease, unspecified Category: Medical (2) Smoker: Code(s): F17.200 - Nicotine dependence, unspecified, uncomplicated Category: Social Hx (3) Asbestos exposure: Code(s): Z77.090 - Contact with and (suspected) exposure to asbestos Category: Medical Plan King's symptoms are likely related to COPD, unclear severity. Will send for PFT to evaluate. Will switch Spiriva to Trelegy. On exam patient with expiratory wheezes throughout, will send prednisone. Encouraged patient to use nebulizer PRN. Will also send for chest CT, as patient current smoker with 20+ pack year history and possible asbestos exposure. All questions were answered and patient is in agreement of plan. Will follow up to review response to inhaler and results. Orders: Orders PFT pulmonary function test Today J44.9 - Chronic obstructive pulmonary disease, unspecified CT chest wo IV con Today F17.200 - Nicotine dependence, unspecified, uncomplicated, Z77.090 - Contact with and (suspected) exposure to asbestos Medications: New aqjgaiokyzu-zonlyoohb-fyofrtrt 100-62.5-25 mcg (Trelegy Ellipta) 1 inh inhalation DAILY 60 ea 3RF prednisone 40 mg (2 x 20 mg) PO DAILY 10 tabs 0RF nicotine (polacrilex) (Nicorette) 2 mg buccal Q2H PRN 50 ea 0RF nicotine cravings Coding Level of Care Code New Pt Level 4 (70298) Diagnoses COPD (chronic obstructive pulmonary disease) J44.9 Smoker F17.200 Asbestos exposure Z77.090
[2023-10-21 10:56] VITALS: BP 142/80; PULSE 116; O2SAT 96; BMI 16.1
== END 2023-10-21 11:27 | disposition home or self-care (01) ==
PROVIDERS: PCP Family Medicine; Referring Provider Emergency Medicine; Visit Provider Nurse Practitioner Family
DX: J44.9 Chronic obstructive pulmonary disease, unspecified (principal); F17.200 Nicotine dependence, unspecified, uncomplicated; Z77.090 Contact with and (suspected) exposure to asbestos
CPT/HCPCS: 99204

== ENCOUNTER → 2023-10-21 10:51 | Outpatient (BNVA) | payer OTHER, SELFPAY | PROVIDERS: PCP Family Medicine; Referring Provider Emergency Medicine; Visit Provider Nurse Practitioner Family | DX: J44.9 Chronic obstructive pulmonary disease, unspecified (principal); I10 Essential (primary) hypertension; F17.210 Nicotine dependence, cigarettes, uncomplicated; Z77.090 Contact with and (suspected) exposure to asbestos | CPT/HCPCS: 99202 ==

== ENCOUNTER 2024-03-20 13:22 | Outpatient (REF) | payer OTHER, SELFPAY ==
--- NOTE | ~2024-03-20 | CT_ITS ---
EXAMINATION: CT CHEST WITHOUT CONTRAST CLINICAL INFORMATION: Nicotine dependence, unspecified, uncomplicated. COMPARISON: CT chest angiogram PE protocol dated June 08, 2019. TECHNIQUE: Multidetector volumetric CT imaging of the chest was done. Axial MIP volume rendering provided. Sagittal and coronal reformatted images were obtained. This CT examination was performed using dose optimization techniques as appropriate, variously including the following: *Automated exposure control *Adjustment of mA and/or kV according to patient size (this includes techniques or standardized protocols for targeted exams where dose is matched to indication/reason for exam; i.e. extremities or head) *Use of iterative reconstruction technique DLP: 222 mGy-cm FINDINGS: Submitted for interpretation on March 27, 2024. LUNGS: 7 mm noncalcified pulmonary nodule, left lower lobe. Linear attenuation resulting in traction and volume loss involving both upper lobes with a soft tissue component in the periphery of the left upper lobe 1.5 cm patchy pulmonary groundglass, left upper lobe. Centrilobular emphysematous changes involving mostly the upper lobes. Hyperinflation. Likely layering secretions in the trachea. No honeycombing. MEDIASTINUM: No gross lymphadenopathy. Calcified plaques in the thoracic aorta wall and its main branches. No aneurysm in the thoracic aorta. No pericardial effusion. Small appearance of the heart. CORONARY ARTERY CALCIFICATION: Calcified plaques. PLEURA: No pleural effusion. No pneumothorax. AXILLA: No lymphadenopathy. UPPER ABDOMEN: [Abundant food contents in the stomach recent meal. OSSEOUS STRUCTURES: The pineal versus cirrhosis. Multilevel thoracic spondylosis without acute fracture or gross listhesis. No lytic or blastic lesions. CT/CT chest wo IV con IMPRESSION: 7 mm noncalcified pulmonary nodule, left lower lung lobe. New since prior examination. Malignancy cannot be excluded. Scattered upper lung lobes. Probable aspiration. Fleischner guidelines were followed. Electronically signed by: Patrick Rene MD 03/27/2024 02:16 PM [place]
== END 2024-03-20 13:23 | disposition home or self-care (01) ==
LOC: HO.CT 13:22
PROVIDERS: PCP Family Medicine; Visit Provider Nurse Practitioner Family
DX: Z77.090 Contact with and (suspected) exposure to asbestos (principal); F17.200 Nicotine dependence, unspecified, uncomplicated
CPT/HCPCS: 71250

== ENCOUNTER → 2024-03-20 13:23 | Outpatient (BNV) | payer OTHER, SELFPAY | PROVIDERS: PCP Family Medicine; Visit Provider Radiology Diagnostic Radiology | DX: Z12.2 Encounter for screening for malignant neoplasm of respiratory organs (principal); F17.210 Nicotine dependence, cigarettes, uncomplicated | CPT/HCPCS: 71250 ==

== ENCOUNTER 2024-03-30 10:11 | Outpatient (AMB) | payer OTHER, SELFPAY ==
--- NOTE | 2024-03-30 08:31 | A.OFFVIS_ITS ---
Vital Signs 03/30/24 10:13 Height 5 ft 9 in Weight 134 lb 7.712 oz BMI 19.9 BP 130/68 Blood Pressure Location Rt brachial Position Sitting Pulse 89 Pulse Source Pulse Oximeter Pulse Oximetry (%) 96 Oxygen Delivery Method Room Air Intake Visit Reasons: Shortness of breath Allergies No Known Allergies [No Known Allergies*] Allergy (Verified 03/30/24 10:16) HPI HPI Shortness of breath: Details: King is a pleasant 53 year old male, former smoker, quit 2 months ago with 20 pack year history, with underlying COPD and HTN. At the last visit, he was started on Breo and Incruse as well as NRT as he is motivated to quit. He continues to report suboptimal effect with notable dyspnea on exertion. He also reports recent URI with productive cough with green sputum and associated chest congestion for the last three weeks. Denies chest tightness or wheezing. He denies fever or chills, +sick contacts. Since the last visit, he has been actively been treated for ETOH abuse and doing quite well. He has not had any alcohol or cigarettes in two months and is motivated to continue this. Today he presents to review chest CT results. An order for a PFT was placed however has not been scheduled at this time. He denies any visits to urgent care or hospitalizations related to respiratory distress. [facility], [facility] Medical History (Updated 03/30/24 @ 12:56 by Michelle Luna NP) Fracture of fifth metacarpal bone of right hand Broken collarbone Broken leg Alcohol use Hypertension COPD (chronic obstructive pulmonary disease) Surgical History (Updated 10/02/23 @ 14:32 by Lolly Hernandez CMA) H/O removal of neck cyst Family History (Updated 10/02/23 @ 14:34 by Lolly Hernandez CMA) Father Substance abuse Paternal Grandfather Substance abuse Mother Mental health disorder Social History (Updated 03/30/24 @ 10:16 by Yoselin Amaya CMA) Housing: House Patient Tobacco Use Status: Former Tobacco user e-Cigarette/Vaping Use: Never Used service: No Current occupational status: unemployed Current occupational exposures/hazards: No Cognitive needs: No Hearing needs: No Vision needs: No Review of Systems Const Denies chills, Denies excessive sweating, Denies fever(s), Denies headache(s) and Denies night sweats Eyes Denies dry eyes, Denies irritation and Denies itchy eyes ENT Reports Normal hearing present, Denies headache(s), Denies nasal congestion, Denies nasal discharge, Denies post nasal drip and Denies sore throat Card Denies chest pain, Denies chest pain at rest, Denies chest pain with activity, Denies claudication, Denies leg edema, Denies dyspnea, Denies orthopnea and Denies paroxysmal nocturnal dyspnea Resp Denies excessive phlegm production, Denies pain on inspiration, Denies pain with cough, Denies dyspnea, Denies stridor and Denies wheezing Musc Denies myalgias Neuro Reports Normal hearing present and Denies headache(s) Endo Denies excessive sweating Edward/Lymph Denies lymphadenopathy Aller/Immun Denies itchy eyes, Denies seasonal rhinorrhea and Denies wheezing Physical Exam Vital Signs: Last Vital Signs Pulse 89 03/30/24 10:13 BP 130/68 03/30/24 10:13 Pulse Ox 96 03/30/24 10:13 Oxygen Delivery Method Room Air 03/30/24 10:13 BMI result Body Mass Index 19.9 Const General: cooperative, healthy appearing, comfortable, no acute distress, well developed and alert Orientation/consciousness: patient oriented x3 Limitations: no limitations HEENT Head: Yes normal to inspection, Yes normocephalic and Yes atraumatic Ears: hearing grossly normal bilaterally and external ears normal Eyes General: appearance normal, both eyes and all related structures Eyelids: Yes eyelids normal Sclerae: sclerae normal EOM: EOMs intact bilaterally Neck Neck: Yes normal visual inspection and Yes no lymphadenopathy Lymphatic: no lymphadenopathy noted Chest Chest palpation & inspection: normal inspection of the chest Resp Effort & Inspection: normal respiratory effort, able to speak in complete sentences, no audible wheezes, no cough, no stridor, not tachypneic, no tripod positioning and no use of accessory muscles Auscultation: diminished lung sounds Cardio Jugular venous distension: no JVD Rate: regular rate Rhythm: regular rhythm Skin Other: warm, dry General skin exam: no rashes or lesions noted Neuro General: patient oriented x3 Cranial nerves: Yes Normal hearing present Cognition (Neuro): normal cognition Gait exam (Neuro): Normal gait present Extrem General: Yes normal to inspection, Yes capillary refill normal, Yes no clubbing, cyanosis or edema and Yes no pedal edema Psych Appearance: grossly normal and well kempt Speech and movement: Normal speech and movement present and Clear speech present Affect: normal affect Attitude: cooperative Thought process: Normal thought process present Thought content: Normal thought content present Insight: Good insight present (Psych) Judgement: Good judgement present (Psych) Results Reviewed Results Reviewed: [address] [address] [address] Scan Report Signed Patient: King Burt MR#: [id number] : 1970 Acct:[id number] Age/Sex: 53 / M ADM Date: 03/20/24 Loc: HO.CT Attending Dr: Michelle Luna NP Ordering Physician: Michelle Luna NP Date of Service: 03/20/24 Procedure(s): CT chest wo IV con Accession Number(s): [id number] cc: Homero Livingston MD; Michelle Luna NP~ EXAMINATION: CT CHEST WITHOUT CONTRAST CLINICAL INFORMATION: Nicotine dependence, unspecified, uncomplicated. COMPARISON: CT chest angiogram PE protocol dated June 08, 2019. TECHNIQUE: Multidetector volumetric CT imaging of the chest was done. Axial MIP volume rendering provided. Sagittal and coronal reformatted images were obtained. This CT examination was performed using dose optimization techniques as appropriate, variously including the following: *Automated exposure control *Adjustment of mA and/or kV according to patient size (this includes techniques or standardized protocols for targeted exams where dose is matched to indication/reason for exam; i.e. extremities or head) *Use of iterative reconstruction technique DLP: 222 mGy-cm FINDINGS: Submitted for interpretation on March 27, 2024. LUNGS: 7 mm noncalcified pulmonary nodule, left lower lobe. Linear attenuation resulting in traction and volume loss involving both upper lobes with a soft tissue component in the periphery of the left upper lobe 1.5 cm patchy pulmonary groundglass, left upper lobe. Centrilobular emphysematous changes involving mostly the upper lobes. Hyperinflation. Likely layering secretions in the trachea. No honeycombing. MEDIASTINUM: No gross lymphadenopathy. Calcified plaques in the thoracic aorta wall and its main branches. No aneurysm in the thoracic aorta. No pericardial effusion. Small appearance of the heart. CORONARY ARTERY CALCIFICATION: Calcified plaques. PLEURA: No pleural effusion. No pneumothorax. AXILLA: No lymphadenopathy. UPPER ABDOMEN: [Abundant food contents in the stomach recent meal. OSSEOUS STRUCTURES: The pineal versus cirrhosis. Multilevel thoracic spondylosis without acute fracture or gross listhesis. No lytic or blastic lesions. CT/CT chest wo IV con IMPRESSION: 7 mm noncalcified pulmonary nodule, left lower lung lobe. New since prior examination. Malignancy cannot be excluded. Scattered upper lung lobes. Probable aspiration. Fleischner guidelines were followed. Electronically signed by: Patrick Rene MD 03/27/2024 02:16 PM EST Dictated By: Patrick Gutierrez MD Signed By: <Electronically signed by Patrick Farris MD in OV> 03/27/24 1416 DD/ 1340 TD/TT: 03/20/24 1340 Bottle Filler: Assessment & Plan Assessment & Plan (1) COPD (chronic obstructive pulmonary disease): Code(s): J44.9 - Chronic obstructive pulmonary disease, unspecified Category: Medical (2) Smoker: Code(s): F17.200 - Nicotine dependence, unspecified, uncomplicated Category: Social Hx (3) Multiple pulmonary nodules: Code(s): R91.8 - Other nonspecific abnormal finding of lung field Category: Medical Plan Will treat bronchitic symptoms with doxycycline. Patient aware to call if symptoms do not improve. He reports suboptimal effect on Breo and Incruse, will switch to Trelegy and increase dose.. Encouraged patient to use nebulizer PRN and acapella valve. He does note nebulizer machine he has is >5 years old, will send nebulizer for home use. Reviewed chest CT which revealed 7 mm noncalcified pulmonary nodule, left lower lobe, 1.5 cm patchy pulmonary groundglass, left upper lobe and centrilobular emphysematous changes. Given these are new findings and patient with recent URI, will repeat in 3 months. All questions were answered and patient is in agreement of plan. Will follow up in 6-8 weeks or sooner if needed. Orders: Orders CT chest wo IV con 3 Months R91.8 - Other nonspecific abnormal finding of lung field Medications: New doxycycline hyclate 100 mg PO BID 14 caps 0RF thmwtbtiefb-eoubyjllr-mmsqqcyz 200-62.5-25 mcg (Trelegy Ellipta) 1 inh inhalation DAILY 60 ea 5RF nicotine (polacrilex) (Nicorette) 4 mg buccal Q2H 50 ea 3RF Coding Level of Care Code Est Pt Level 4 (80248) Diagnoses COPD (chronic obstructive pulmonary disease) J44.9 Smoker F17.200 Multiple pulmonary nodules R91.8
[2024-03-30 10:13] VITALS: BP 130/68; PULSE 89; O2SAT 96; BMI 19.9
== END 2024-03-30 10:47 | disposition home or self-care (01) ==
PROVIDERS: PCP Family Medicine; Visit Provider Nurse Practitioner Family
DX: J44.9 Chronic obstructive pulmonary disease, unspecified (principal); F17.200 Nicotine dependence, unspecified, uncomplicated; R91.8 Other nonspecific abnormal finding of lung field
CPT/HCPCS: 99214

== ENCOUNTER → 2024-03-30 10:11 | Outpatient (BNVA) | payer OTHER, SELFPAY | PROVIDERS: PCP Family Medicine; Visit Provider Nurse Practitioner Family | DX: J44.9 Chronic obstructive pulmonary disease, unspecified (principal); R91.8 Other nonspecific abnormal finding of lung field; F17.200 Nicotine dependence, unspecified, uncomplicated | CPT/HCPCS: 99212 ==

== ENCOUNTER 2024-04-14 15:56 | Outpatient (AMB) | payer OTHER, SELFPAY ==
--- NOTE | 2024-04-14 16:13 | A.OFFPC_ITS ---
Vital Signs 04/14/24 16:18 Height 5 ft 9 in Weight 130 lb 8 oz BMI 19.3 BP 120/60 Blood Pressure Location Lt brachial Position Sitting Respiration 16 Pulse 92 Pulse Source Pulse Oximeter Pulse Oximetry (%) 95 Oxygen Delivery Method Room Air Intake Visit Reasons: cpe Intake Note: cpe Allergies No Known Allergies [No Known Allergies*] Allergy (Verified 04/14/24 16:14) Medication List - Last Reconciled 04/14/24 by Homero Livingston MD albuterol sulfate 90 mcg/actuation 2 puffs inhalation Q4-6H PRN albuterol sulfate 2.5 mg (3 mL) inhalation Q4-6H PRN 30 days carbamide peroxide 6.5% (Debrox) 5 drps otic (ear) left DAILY 4 days clonidine HCl 0.1 mg PO TID diltiazem HCl ER 60 mg PO BID 90 days fluticasone furoate-vilanterol 100-25 mcg/dose (Breo Ellipta) 1 inh inhalation DAILY syyuwizqfgb-jiwlrmcrp-asmxjltl 200-62.5-25 mcg (Trelegy Ellipta) 1 inh inhalation DAILY food supplemt, lactose-reduced (Ensure oral liquid) 1 ea PO DAILY 30 days ipratropium-albuterol 0.5 mg-3 mg(2.5 mg base)/3 mL 3 mL inhalation Q6-8H PRN 30 days nicotine (polacrilex) (Nicorette) 4 mg buccal Q2H trazodone 100 mg PO BEDTIME PRN umeclidinium 62.5 mcg/actuation (Incruse Ellipta) 1 inh inhalation DAILY Tobacco use date assessed: 04/14/24 Dental Screening Dental Screen Date: 10/02/23 Did you have a dental visit in the last 12 months?: Yes Did you have a dental problem in the last 6 months where you did not have access to dental care?: Yes Was dental information given to patient?: Patient has dentist HPI cpe HPI Details 53 y/o male presents for an extended exa m with f/u labs and health maintenance. No recent labs to review. Has been followed by Pulmonology and last seen Michelle Luna 03/30/24. They had reviewed chest CT which revealed 7 mm noncalcified pulmonary nodule, L lower lobe, 1.5cm patchy pulmonary groundglass, L upper lobe and centrilobular emphysematous changes. Notes ongoing shortness of breath/dyspnea. Has stopped smoking. HPI Comments History of Present Illness Details Documentation assistance for Homero Livingston MD, was provided by Yusuf Rader, Regional Service Manager on 04/14/2024 at 4:39 PM EST. I, Dr. Livingston, have read, observed, and verified documentation. [facility] Medical History (Updated 04/14/24 @ 17:04 by Yusuf Rader) Fracture of fifth metacarpal bone of right hand Broken collarbone Broken leg Alcohol use Hypertension COPD (chronic obstructive pulmonary disease) Surgical History (Updated 10/02/23 @ 14:32 by Lolly Hernandez [facility]) H/O removal of neck cyst Family History (Updated 10/02/23 @ 14:34 by Lolly Hernandez [facility]) Father Substance abuse Paternal Grandfather Substance abuse Mother Mental health disorder Social History (Updated 03/30/24 @ 10:16 by Yoselin Amaya [facility]) Housing: House Patient Tobacco Use Status: Former Tobacco user e-Cigarette/Vaping Use: Never Used Second Hand Smoke Exposure: No service: No Current occupational status: unemployed Current occupational exposures/hazards: No Cognitive needs: No Hearing needs: No Vision needs: No Questionnaire PHQ-9 Over the last 2 weeks, how often have you been bothered by any of the following problems? 1. Little interest or pleasure in doing things: nearly every day 2. Feeling down, depressed, or hopeless: not at all 3. Trouble falling or staying asleep, or sleeping too much: not at all 4. Feeling tired or having little energy: not at all 5. Poor appetite or overeating: not at all 6. Feeling bad about yourself - or that you are a failure or have let yourself or your family down: not at all 7. Trouble concentrating on things, such as reading the newspaper or watching television: not at all 8. Moving or speaking so slowly that other people could have noticed. Or the opposite - being so fidgety or restless that you have been moving around a lot more than usual: not at all 9. Thoughts that you would be better off or of hurting yourself in some way: not at all Total score: 3 Depression Screening Interpretation: Negative Depression Screening Done: Yes 26776 - PHQ-9 Billing: Yes Source: Developed by Drs. Yusuf Damon, Lizzeth Rouse, Mick Guallpa and colleagues, with an educational lorelei from [employer] assistant. Thrive Questionnaire Date Thrive assessed: 04/14/24 I am a: Patient What is your living situation today?: I choose not to answer this question Within the past 12 months, did the food you bought not last and you didn't have the money to get more?: Never true Within the past 12 months, did you worry whether your food would run out before you got money to buy more?: Never true Do you have trouble paying for medicines?: No Do you have trouble getting transportation to medical appointments?: Yes Do you have trouble paying your heating and electricity bill?: I choose not to answer this question Do you have trouble taking care of your child, family member or friend?: No Do you have trouble with day-to-day activities such as bathing, preparing meals, shopping, managing finances, etc.?: No Are you currently unemployed and looking for a job?: Yes Are you interested in more education?: Yes Please select the resources that you would like help with: Transportation Currently or been in a relationship where the following occur: I choose not to answer THRIVE Score: 1 AUDIT C Alcohol Use Questionnaire (AUDIT-C) 1. How often do you have a drink containing alcohol?: Never 3. How often do you have six or more drinks on one occasion?: Never Total Score: 0 TAMMY-7 AMB Questionnaire TAMMY-7 Date TAMMY - 7 assessed: 04/14/24 Feeling nervous, anxious, or on edge: 1 = Several days Not being able to stop or control worryin = Several days Worrying too much about different things: 1 = Several days Trouble relaxin = Several days Being so restless that it is hard to sit still: 0 = Not at all Becoming easily annoyed or irritable: 0 = Not at all Feeling afraid as if something awful might happen: 0 = Not at all Total TAMMY-7 score (0-4 normal; 5-9 mild; 10-14 moderate; 15-21 severe): 4 Source: Developed by Lizzeth Loza Kurt Kroenke and colleagues, with an educational lorelei from [employer] assistant. TAMMY-7 Assessment Billing TAMMY-7 Assessment Tool: TAMMY-7 Assessment 37428 Review of Systems Const Denies chills, Denies fatigue, Denies fever(s), Denies headache(s) and Denies weakness Eyes Denies change in vision ENT Denies dizziness, Denies headache(s), Denies hearing loss, Denies nasal congest ion, Denies sinus pain, Denies sinus pressure and Denies sore throat Card Reports dyspnea Resp Reports dyspnea and Denies wheezing GI Denies abdominal pain, Denies melena, Denies hematochezia, Denies change in bowel habits, Denies dyspepsia and Denies nausea Denies hematuria and Denies dysuria Musc Denies abnormal gait, Denies myalgias, Denies arthralgias, Denies numbness and Denies tingling Skin/Breast Denies rash, Denies unusual bruising and Denies wounds Neuro Denies abnormal gait, Denies dizziness, Denies headache(s), Denies memory loss, Denies numbness, Denies Sensory deficit (Neuro), Denies tingling and Denies weakness Psych Denies anxiety, Denies depression and Denies memory loss Endo Denies cold intolerance, Denies fatigue, Denies heat intolerance, Denies polydipsia and Denies polyuria Edward/Lymph Denies easy bleeding and Denies easy bruising Aller/Immun Denies wheezing Physical exam (Primary Care) Vital Signs: Last Vital Signs Pulse 92 04/14/24 16:18 Resp 16 04/14/24 16:18 BP 120/60 04/14/24 16:18 Pulse Ox 95 04/14/24 16:18 Oxygen Delivery Method Room Air 04/14/24 16:18 BMI result Body Mass Index 19.3 Tobacco/Smoking Status: Tobacco use Status Tobacco use date assessed 04/14/24 04/14/24 16:20 Patient Tobacco Use Status Former Tobacco user 04/14/24 16:20 e-Cigarette/Vaping Use Never Used 04/14/24 16:20 PHQ-9: PHQ-9 Score PHQ-9: Total score 3 04/14/24 16:20 Depression Screening Interpretation: Negative Thrive Assessment: Date of Thrive Assessment Date Thrive assessed 04/14/24 04/14/24 16:20 Currently or been in a relationship where the following occur: I choose not to answer Const General: no acute distress, well developed, alert and awake Nutritional Appearance: well nourished and underweight Orientation/consciousness: patient oriented x3 [facility] Head: Yes normocephalic and Yes atraumatic Ears: hearing grossly normal bilaterally and TM's normal bilaterally General nose exam: Normal external nose present and Normal nares present Mouth: Normal oral and palatal mucosa present and moist mucous membranes Teeth and gingiva: dentition normal Throat: Yes posterior oropharynx normal Eyes General: appearance normal, both eyes and all related structures Pupils: Equal, round and reactive pupils present and Pupil accommodation reflex normal EOM: EOMs intact bilaterally Neck Neck: Yes normal visual inspection, Yes no lymphadenopathy and Yes trachea midline Thyroid: Thyroid normal Carotids: no bruits Lymphatic: no lymphadenopathy noted Chest Chest palpation & inspection: normal inspection of the chest Resp Other: Distant breath sounds Effort & Inspection: normal respiratory effort Auscultation: clear to auscultation bilaterally Cardio Rate: regular rate Rhythm: regular rhythm Heart sounds: S1 normal heart sound present, S2 normal heart sound present, no gallops, no murmurs and no rubs Bruits: no abdominal aortic bruits and no carotid bruits GI Palpation (GI): No Abdominal aortic bruit present, Soft to palpation, nontender, No hepatosplenomegaly present and No Rebound tenderness present Auscultation: normal bowel sounds General: Yes no CVA tenderness Back/Spine/Pelvis Back: no CVA tenderness Cervical Spine: cervical ROM normal and No Cervical spine tenderness Thoracic/Lumbar Spine: thoraco-lumbar ROM normal, No pain with thoraco-lumbar ROM, No thoracic spinal tenderness and No lumbar spinal tenderness Skin Lesions: no lesions Rashes: no rashes Trauma: no lacerations or abrasions Wounds: no wounds Nails: normal Neuro General: patient oriented x3 Cranial nerves: Yes Equal, round and reactive pupils present Cognition (Neuro): normal cognition Gait exam (Neuro): Normal gait present Motor exam (neuro): 5/5 motor strength present throughout Sensory Exam: No Sensory deficit (Neuro) Deep tendon reflexes (DTR's): Right patellar reflex intensity grade: 2+ and Left patellar reflex intensity grade: 2+ Extrem General: Yes normal to inspection and No edema Psych Appearance: grossly normal Affect: normal affect Attitude: cooperative Thought process: Normal thought process present Coding Level of Care Code Est Pt Level 4 (57630) Diagnoses Multiple pulmonary nodules R91.8 Hypertension I10 COPD (chronic obstructive pulmonary disease) J44.9 Anxiety F41.9 Screening for colon cancer Z12.11 Screening for prostate cancer Z12.5 Smoker F17.200 Underweight R63.6 Poor dentition K08.9 Adult general medical exam Z00.00 Additional Codes TAMMY-7 Assessment Billing - TAMMY-7 Assessment Tool: TAMMY-7 Assessment 22883 ([id number]) PHQ-9 - 65569 - PHQ-9 Billing: Yes ([id number]) Assessment & Plan Assessment & Plan (1) Multiple pulmonary nodules: Code(s): R91.8 - Other nonspecific abnormal finding of lung field Category: Medical Plan: Followed?by?pulmonology. Has?a?follow-up?CT?scan?ordered (2) Hypertension: Code(s): I10 - Essential (primary) hypertension Category: Medical Plan: Blood?pressure?is?controlled.??Goal?is?less?than?140/90 Continue?current?medication (3) COPD (chronic obstructive pulmonary disease): Code(s): J44.9 - Chronic obstructive pulmonary disease, unspecified Category: Medical Plan: Patient?still?has?dyspnea?with?exertion He?notes?that?this?is?somewhat?improved?with?treatment?by?pulmonary?medicine Continue?current?medication?regimen Remain?abstinent?of?cigarettes?marijuana (4) Anxiety: Code(s): F41.9 - Anxiety disorder, unspecified Category: Medical Plan: Patient?has?a?therapist/psych?med?provider Still?has?some?anxiety.??He?notes?that?he?had?been?prescribed?clonidine?t.i.d.?a nd?was?taking?about?twice?a?day?with?good?affect.??More?recentl y?this?was?prescribed?as?once?daily?and?he?notes?that?he?sometimes?has?some?diff iculty?with?anxiety. Also?taking?trazodone?at?bedtime?though?he?does?not?always?feel?he?needs?this. Advised?he?discuss?w ith?his?psych?med?provider.??Blood?pressure?is?well?controlled?and?I?think?he?co uld?handle?clonidine?b.i.d.?without?difficulty.??Would?consider?prescribing?clon idine?b.i.d.?if?his?psych?med?provider?is?uncomfortable?with?this. (5) Screening for colon cancer: Code(s): Z12.11 - Encounter for screening for malignant neoplasm of colon Category: Medical Plan: Referred?to?Gastroenterology (6) Screening for prostate cancer: Code(s): Z12.5 - Encounter for screening for malignant neoplasm of prostate Category: Medical Plan: Check?PSA (7) Smoker: Code(s): F17.200 - Nicotine dependence, unspecified, uncomplicated Category: Social Hx Plan: Patient?quit?smoking?and?has?remained?abstinent Congratulated?him?and?encouraged?him?to?remain?abstinent. (8) Underweight: Code(s): R63.6 - Underweight Category: Medical Plan: Patient?is?still?having?difficulty?maintain?weight Concentrate?on?protein?and?consider?getting?routine?shakes Encouraged?healthy?diet (9) Poor dentition: Code(s): K08.9 - Disorder of teeth and supporting structures, unspecified Category: Medical Plan: Advised?follow-up?with?a?dentist (10) Adult general medical exam: Code(s): Z00.00 - Encounter for general adult medical examination without abnormal findings Category: Medical Plan: 53-year-old?male?presents?for?extended?exam Orders: Orders UA and rflx microscopic Today Z00.00 - Encounter for general adult medical examination without abnormal findings Complete Blood Count Auto Diff Today Z00.00 - Encounter for general adult medical examination without abnormal findings Comprehensive Glennie. Panel Fast Today Z00.00 - Encounter for general adult medical examination without abnormal findings Lipid Panel Today Z00.00 - Encounter for general adult medical examination without abnormal findings Microalbumin, Random (w Creat) Today I10 - Essential (primary) hypertension Prostate Specific Antigen Scr Today Z12.5 - Encounter for screening for malignant neoplasm of prostate TSH reflex Free T4 Today Z00.00 - Encounter for general adult medical exami nation without abnormal findings Vitamin B12 and Folate Today E53.8 - Deficiency of other specified B group vitamins Referrals Gastroenterology Referral Z12.11 - Encounter for screening for malignant neoplasm of colon Medications: New carbamide peroxide 6.5% (Debrox) 5 drps otic (ear) left DAILY 4 days 15 mL 0RF
[2024-04-14 16:18] VITALS: BP 120/60; PULSE 92; RESP 16; O2SAT 95; BMI 19.3
== END 2024-04-14 17:02 | disposition home or self-care (01) ==
PROVIDERS: PCP Family Medicine; Visit Provider Family Medicine
DX: R91.8 Other nonspecific abnormal finding of lung field (principal); I10 Essential (primary) hypertension; J44.9 Chronic obstructive pulmonary disease, unspecified; F41.9 Anxiety disorder, unspecified; Z12.11 Encounter for screening for malignant neoplasm of colon; Z12.5 Encounter for screening for malignant neoplasm of prostate; F17.200 Nicotine dependence, unspecified, uncomplicated; R63.6 Underweight; K08.9 Disorder of teeth and supporting structures, unspecified; Z00.00 Encounter for general adult medical examination without abnormal findings

== ENCOUNTER → 2024-04-14 15:56 | Outpatient (BNVA) | payer OTHER, SELFPAY | PROVIDERS: PCP Family Medicine; Visit Provider Family Medicine | DX: Z00.00 Encounter for general adult medical examination without abnormal findings (principal); R91.8 Other nonspecific abnormal finding of lung field; I10 Essential (primary) hypertension; J44.9 Chronic obstructive pulmonary disease, unspecified; R63.6 Underweight; K08.9 Disorder of teeth and supporting structures, unspecified; F17.200 Nicotine dependence, unspecified, uncomplicated; Z71.6 Tobacco abuse counseling | CPT/HCPCS: 96127; 99212 ==

== ENCOUNTER 2024-05-08 13:07 | Outpatient (AMB) | payer OTHER, SELFPAY ==
--- NOTE | 2024-05-08 13:10 | MHC.OFFVIS ---
Vital Signs 05/08/24 13:11 Height 5 ft 9 in Weight 137 lb 2 oz BMI 20.2 BP 134/72 Blood Pressure Location Lt brachial Position Sitting Pulse 96 Pulse Source Pulse Oximeter Pulse Oximetry (%) 97 Oxygen Delivery Method Room Air Intake Visit Reasons: productive cough Allergies No Known Allergies [No Known Allergies*] Allergy (Verified 05/08/24 13:13) HPI HPI productive cough: Details: King is a pleasant 53 year old male, former smoker, quit 2 months ago with 20 pack year history, with underlying COPD and HTN. At the last visit, Minoogy unsure if any improvement. Today he presents for an acute visit. He reports three day history of productive cough with green to yellow sputum, wheezing, dyspnea on exertion, chest congestion, and sinus congestion. Denies fevers or chills. He does note that roommates with similar symptoms. [facility] Medical History (Updated 04/14/24 @ 17:04 by Yusuf Rader) Fracture of fifth metacarpal bone of right hand Broken collarbone Broken leg Alcohol use Hypertension COPD (chronic obstructive pulmonary disease) Surgical History (Updated 10/02/23 @ 14:32 by Lolly Hernandez CMA) H/O removal of neck cyst Family History (Updated 10/02/23 @ 14:34 by Lolly Hernandez CMA) Father Substance abuse Paternal Grandfather Substance abuse Mother Mental health disorder Social History Housing: House Patient Tobacco Use Status: Former Tobacco user e-Cigarette/Vaping Use: Never Used Second Hand Smoke Exposure: No service: No Current occupational status: unemployed Current occupational exposures/hazards: No Cognitive needs: No Hearing needs: No Vision needs: No Review of Systems Const Denies chills, Denies excessive sweating, Denies fever(s), Denies headache(s) and Denies night sweats Eyes Denies dry eyes, Denies irritation and Denies itchy eyes ENT Reports Normal hearing present, Denies headache(s), Reports nasal congestion, Denies nasal discharge, Denies post nasal drip, Reports sinus pressure and Denies sore throat Card Denies chest pain, Denies chest pain at rest, Denies chest pain with activity, Denies claudication, Denies leg edema, Reports dyspnea on exertion, Denies orthopnea and Denies paroxysmal nocturnal dyspnea Resp Reports change in phlegm color, Reports chest congestion, Reports cough, Denies hemoptysis, Denies excessive phlegm production, Denies pain on inspiration, Denies pain with cough, Reports dyspnea on exertion, Denies stridor and Reports wheezing Musc Denies myalgias Neuro Reports Normal hearing present and Denies headache(s) Endo Denies excessive sweating Edward/Lymph Denies lymphadenopathy Aller/Immun Denies itchy eyes, Denies seasonal rhinorrhea and Reports wheezing Physical Exam Vital Signs: Last Vital Signs Pulse 96 05/08/24 13:11 BP 134/72 05/08/24 13:11 Pulse Ox 97 05/08/24 13:11 Oxygen Delivery Method Room Air 05/08/24 13:11 BMI result Body Mass Index 20.2 Const General: cooperative, comfortable, no acute distress, well developed and alert Orientation/consciousness: patient oriented x3 Limitations: no limitations HEENT Head: Yes normal to inspection, Yes normocephalic and Yes atraumatic Ears: hearing grossly normal bilaterally and external ears normal Eyes General: appearance normal, both eyes and all related structures Eyelids: Yes eyelids normal Sclerae: sclerae normal EOM: EOMs intact bilaterally Neck Neck: Yes normal visual inspection and Yes no lymphadenopathy Lymphatic: no lymphadenopathy noted Chest Chest palpation & inspection: normal inspection of the chest Resp Other: expiratory wheezes throughout, mildly improved with DuoNeb Effort & Inspection: normal respiratory effort, able to speak in complete sentences, no audible wheezes, no cough, no stridor, not tachypneic, no tripod positioning and no use of accessory muscles Auscultation: diminished lung sounds Cardio Jugular venous distension: no JVD Rate: regular rate Rhythm: regular rhythm Skin Other: warm, dry General skin exam: no rashes or lesions noted Neuro General: patient oriented x3 Cranial nerves: Yes Normal hearing present Cognition (Neuro): normal cognition Gait exam (Neuro): Normal gait present Extrem General: Yes normal to inspection, Yes capillary refill normal, Yes no clubbing, cyanosis or edema and Yes no pedal edema Psych Appearance: grossly normal and well kempt Speech and movement: Normal speech and movement present and Clear speech present Affect: normal affect Attitude: cooperative Thought process: Normal thought process present Thought content: Normal thought content present Insight: Good insight present (Psych) Judgement: Good judgement present (Psych) Office Procedures Nebulizer Treatment Nebulizer Treatment 06028-[id number]/MDI RX initial, or Nebulizer Subsequent Treatment Office Meds albuterol sulfate 2.5 mg/3 mL (0.083 %) solution for nebulization Performing Provider: Michelle Luna NP Performing Location: [facility] Administered by: Michelle Luna NP on 05/08/24 13:34 Dose Route Admin Location Dispensed Lot Number Expiration Date [facility] Heating Fixture Tender 2.5 mg inhalation 3 mL 24md1 01/10/26 Assessment & Plan Assessment & Plan (1) COPD (chronic obstructive pulmonary disease): Code(s): J44.9 - Chronic obstructive pulmonary disease, unspecified Category: Medical (2) Smoker: Code(s): F17.200 - Nicotine dependence, unspecified, uncomplicated Category: Social Hx (3) Multiple pulmonary nodules: Code(s): R91.8 - Other nonspecific abnormal finding of lung field Category: Medical Plan Will treat bronchitic/sinusitis symptoms with Augmentin and prednisone. Patient aware to call if symptoms do not improve. Advised to continue to use Trelelgy and encouraged patient to use nebulizer PRN as well as acapella valve. All questions were answered and patient is in agreement of plan. Will follow up after chest CT or sooner if needed. Orders: Orders AMB Nebulizer Treatment Today J44.9 - Chronic obstructive pulmonary disease, unspecified Medications: New amoxicillin-pot clavulanate 875-125 mg 1 tab PO Q12H 20 tabs 0RF prednisone 40 mg (2 x 20 mg) PO DAILY 10 tabs 0RF Refilled nicotine (polacrilex) (Nicorette) 4 mg buccal Q2H 110 ea 1RF zkpuzyhjotp-acpyhpgfk-kaxpuklg 200-62.5-25 mcg (Trelegy Ellipta) 1 inh inhalation DAILY 60 ea 5RF Discontinued fluticasone furoate-vilanterol 100-25 mcg/dose (Breo Ellipta) Discontinued Reason: Patient Completed Course 1 inh inhalation DAILY 60 ea 6RF umeclidinium 62.5 mcg/actuation (Incruse Ellipta) Discontinued Reason: Patient Completed Course 1 inh inhalation DAILY 30 ea 6RF Coding Level of Care Code Est Pt Level 4 (53759) Diagnoses COPD (chronic obstructive pulmonary disease) J44.9 Smoker F17.200 Multiple pulmonary nodules R91.8 CPT Codes Nebulizer Treatment - Nebulizer Treatment, initial or subsequent: [id number]/MDI RX initial, or Nebulizer Subsequent Treatment ([id number])
[2024-05-08 13:11] VITALS: BP 134/72; PULSE 96; O2SAT 97; BMI 20.2
== END 2024-05-08 13:49 | disposition home or self-care (01) ==
PROVIDERS: PCP Family Medicine; Visit Provider Nurse Practitioner Family
DX: J44.9 Chronic obstructive pulmonary disease, unspecified (principal); F17.200 Nicotine dependence, unspecified, uncomplicated; R91.8 Other nonspecific abnormal finding of lung field
CPT/HCPCS: 99214

== ENCOUNTER → 2024-05-08 13:07 | Outpatient (BNVA) | payer OTHER, SELFPAY | PROVIDERS: PCP Family Medicine; Visit Provider Nurse Practitioner Family | DX: J44.9 Chronic obstructive pulmonary disease, unspecified (principal); I10 Essential (primary) hypertension; R91.8 Other nonspecific abnormal finding of lung field; Z87.891 Personal history of nicotine dependence | CPT/HCPCS: 94640; 99212 ==

== ENCOUNTER 2024-05-25 10:47 | Outpatient (REF) | payer OTHER, SELFPAY ==
[2024-05-25 11:13] LABS: MANUAL DIFF FLAG NO
[2024-05-25 11:51] LABS: Basophils Absolute Auto 0.1 X10*3/uL (0.0-0.2); Eosinophils Absolute Auto 0.2 X10*3/uL (0.0-0.4); Hematocrit 45.1 % (42.0-52.0); Hemoglobin 15.4 g/dl (14.0-18.0); Imm Gran Abs Auto 0.04 X10*3/uL (0.00-0.03); Imm Gran Pct Auto 0.5 % (0.0-0.4); Lymphocytes Absolute Auto 1.7 X10*3/uL (1.2-4.9); Lymphocytes Percent Auto 22.6 % (20-40); Mean Corpuscular HGB Conc 34.1 g/dl (31.0-36.0); Mean Corpuscular Hemoglobin 31.6 pg (27.0-33.0); Mean Corpuscular Volume 92.4 fL (80.0-98.0); Mean Platelet Volume 9.9 fL (9.4-12.4); Monocytes Absolute Auto 0.6 X10*3/uL (0.1-1.2); Monocytes Percent Auto 8.2 % (2-11); Neutrophils Percent Auto 64.7 % (45-73); Platelet Count 369 X10*3/uL (160-400); Red Blood Count 4.88 X10*6/uL (4.60-5.80); Red Cell Distribution Width 12.5 % (11.0-16.0); White Blood Count 7.7 X10*3/uL (4.8-10.8)
[2024-05-25 11:55] LABS: Appearance Urine Clear; Color Urine Yellow; Glucose Urine UA Negative (Negative); Leukocyte Esterase Urine Negative (Negative); Nitrite Urine Negative (Negative); PH 6.5 (5.0-9.0); Specific Gravity - Urine <= 1.005 (1.005-1.025); Urine Blood Negative (Negative); Urine Ketones Negative (Negative); Urine Protein Negative (Neg-Trace)
[2024-05-25 12:35] LABS: Alanine Aminotransferase 31 U/L (0-40); Albumin Level 4.3 g/dL (3.5-5.0); Alkaline Phosphatase 90 U/L (39-117); Anion Gap 11 (12-20); Aspartate Amino Transferase 26 U/L (5-37); Bilirubin Total 0.5 mg/dL (0.0-1.0); Blood Urea Nitrogen 9 mg/dL (9-16); Calcium 9.5 mg/dL (8.4-10.2); Carbon Dioxide 31 mmol/L (22-29); Chloride 103 mmol/L (96-108); Cholesterol 206 mg/dL (<200); Estimated Glomerular Filt Rate > 60; Glucose Fasting 86 mg/dL (60-99); HDL Cholesterol 45 mg/dL (>40); LDL Cholesterol Calculated 137 mg/dL (<100); Potassium 4.3 mmol/L (3.3-5.1); Sodium 141 mmol/L (135-145); TSH reflex Free T4 1.63 uIU/mL (0.32-4.0); Total Protein 7.3 g/dL (6.5-8.0); Triglycerides 120 mg/dL (<150)
[2024-05-25 12:46] LABS: Folate 14.3 ng/mL (> or = 4.0); Prostate Specific Antigen Scr 2.22 ng/mL (<0.05-4.0); Vitamin B12 549 pg/mL (200-900)
[2024-05-25 21:30] LABS: Microalbum/Creatinine Ratio Ur 16.6 ug/mg cr (<30)
== END 2024-05-25 10:48 | disposition home or self-care (01) ==
LOC: HO.LAB 10:47
PROVIDERS: PCP Family Medicine; Visit Provider Family Medicine
DX: Z00.00 Encounter for general adult medical examination without abnormal findings (principal); Z12.5 Encounter for screening for malignant neoplasm of prostate; I10 Essential (primary) hypertension; E53.8 Deficiency of other specified B group vitamins
CPT/HCPCS: 36415; 80053; 80061; 81003; 82043; 82570; 82607; 82746; 84153; 84443; 85025

== ENCOUNTER 2024-06-30 10:58 | Outpatient (REF) | payer OTHER, SELFPAY ==
--- NOTE | ~2024-06-30 | CT_ITS ---
CLINICAL HISTORY: R91.8 - Other nonspecific abnormal finding of lung field CT chest without contrast Comparison: 03/20/2024 Findings: The heart is normal size. No evidence of enlarged lymphadenopathy. Right upper lung scarring and prominent smoking-related lung changes are redemonstrated. Spiculated left lower lung nodule measures 4 x 6 mm in the axial plane versus 7 x 7 mm previously. Additional small number of scattered bilateral lung nodules (including airway nodules) measuring up to 4 mm, some of which are new from the prior study. New small mildly branching, ground-glass opacity in the right middle lobe due to atelectasis versus infiltrate. New small branching opacity in the apical segment of the right lower lobe likely due to mucous plugging. The visualized upper abdomen is unremarkable. The bones are intact. IMPRESSION: Spiculated left lower lung nodule measures 4 x 6 mm in the axial plane versus 7 x 7 mm previously. Additional small number of scattered bilateral lung nodules (including airway nodules) measuring up to 4 mm, some of which are new from the prior study. Follow-up per Fleischner society criteria recommended. Fleischner 2017 Guidelines were utilized to develop follow up recommendations for this patient. The full article can be viewed at: https://goo.gl/JEEJEh Follow up strategies in solid nodules vary depending on patient risk assessment, with patient's classified as high or low risk. Low risk is associated with young age, smaller nodule size, regular margins, and location in an area other than the upper lobe. High risk factors include older age, heavy smoking, emphysema, carcinogen exposure, larger nodule size, irregular or spiculated margins, and upper lobe location. Nodule size and morphology are the dominant factors. Follow up of subsolid nodules (including ground glass and part solid opacities) is different when compared to solid nodules based on risk of malignancy and a longer doubling time in this group. Therefore when follow up is recommended, it is for a longer interval. Also in this group, recommendations may vary depending on a solitary lesion versus multiplicity of lesions. A calculator of estimated risk is available at: https://goo.gl/JEEJEh This document has been electronically signed by: Tania Saldivar MD on 07/01/2024 09:38:14
== END 2024-06-30 10:59 | disposition home or self-care (01) ==
LOC: HO.CT 10:58
PROVIDERS: PCP Family Medicine; Visit Provider Nurse Practitioner Family
DX: R91.8 Other nonspecific abnormal finding of lung field (principal)
CPT/HCPCS: 71250

== ENCOUNTER → 2024-06-30 10:59 | Outpatient (BNV) | payer OTHER, SELFPAY | PROVIDERS: PCP Family Medicine; Visit Provider Radiology Diagnostic Radiology | DX: R91.1 Solitary pulmonary nodule (principal) | CPT/HCPCS: 71250 ==

== ENCOUNTER 2024-07-13 08:51 | Outpatient (AMB) | payer OTHER, SELFPAY ==
--- NOTE | 2024-07-12 19:45 | A.OFFVIS_ITS ---
Vital Signs 07/13/24 08:53 Height 5 ft 9 in Weight 138 lb 14.259 oz BMI 20.5 BP 112/64 Blood Pressure Location Lt brachial Position Sitting Pulse 96 Pulse Source Pulse Oximeter Pulse Oximetry (%) 98 Oxygen Delivery Method Room Air Intake Visit Reasons: Shortness of breath/ CT FU Pewter Finisher Required: No Prep Manager: Prep Manager offered & declined Accompanied by: Self / Same As Patient Allergies No Known Allergies [No Known Allergies*] Allergy (Verified 07/13/24 08:57) Medication List - Last Reconciled 07/13/24 by Nan Patel LPN albuterol sulfate 90 mcg/actuation 2 puffs inhalation Q4-6H PRN albuterol sulfate 2.5 mg (3 mL) inhalation Q4-6H PRN 30 days carbamide peroxide 6.5% (Debrox) 5 drps otic (ear) left DAILY 4 days clonidine HCl 0.1 mg PO TID diltiazem HCl ER 60 mg PO BID 90 days luaupxekdes-qknksxjho-gubwclxj 200-62.5-25 mcg (Trelegy Ellipta) 1 inh inhalation DAILY food supplemt, lactose-reduced (Ensure oral liquid) 1 ea PO DAILY 30 days ipratropium-albuterol 0.5 mg-3 mg(2.5 mg base)/3 mL 3 mL inhalation Q6-8H PRN 30 days nicotine (polacrilex) (Nicorette) 4 mg buccal Q2H trazodone 100 mg PO BEDTIME PRN HPI HPI Shortness of breath/ CT FU: Details: King is a pleasant 54 year old male, current smoker, with 20 pack year history, with underlying COPD and HTN. He has been using trelegy with moderate effect, using albuterol MDI/neb PRN. Unfortunately, he did return to smoking, approximately 4 cigarettes per day. He notes he is motivated to quit again using NRT. Today he presents to review chest CT results. Prior noted 7x7 spiculated nodule of RONAK. Since the last visit, he did contract COVID 19 about one month ago with upper respiratory symptoms as well as body aches. He continues to report dyspnea on exertion, intermittent wheezing, and productive cough. [facility] Medical History (Updated 04/14/24 @ 17:04 by Yusuf Rader) Fracture of fifth metacarpal bone of right hand Broken collarbone Broken leg Alcohol use Hypertension COPD (chronic obstructive pulmonary disease) Surgical History (Updated 10/02/23 @ 14:32 by Lolly Hernandez CMA) H/O removal of neck cyst Family History (Updated 10/02/23 @ 14:34 by Lolly Hernandez CMA) Father Substance abuse Paternal Grandfather Substance abuse Mother Mental health disorder Social History (Updated 07/13/24 @ 09:00 by Nan Patel LPN) Housing: House Patient Tobacco Use Status: Former Tobacco user Cigarettes Per Day: 4 e-Cigarette/Vaping Use: Never Used Second Hand Smoke Exposure: No service: No Current occupational status: unemployed Current occupational exposures/hazards: No Cognitive needs: No Hearing needs: No Vision needs: No Review of Systems Const Denies chills, Denies excessive sweating, Denies fever(s), Denies headache(s) and Denies night sweats Eyes Denies dry eyes, Denies irritation and Denies itchy eyes ENT Reports Normal hearing present, Denies headache(s), Reports nasal congestion, Denies nasal discharge, Denies post nasal drip, Reports sinus pressure and Denies sore throat Card Denies chest pain, Denies chest pain at rest, Denies chest pain with activity, Denies claudication, Denies leg edema, Reports dyspnea on exertion, Denies orthopnea and Denies paroxysmal nocturnal dyspnea Resp Reports chest congestion, Reports cough, Denies hemoptysis, Denies excessive phlegm production, Denies pain on inspiration, Denies pain with cough, Reports dyspnea on exertion, Denies stridor and Reports wheezing Musc Denies myalgias Neuro Reports Normal hearing present and Denies headache(s) Endo Denies excessive sweating Edward/Lymph Denies lymphadenopathy Aller/Immun Denies itchy eyes, Denies seasonal rhinorrhea and Reports wheezing Physical Exam Vital Signs: Last Vital Signs Pulse 96 07/13/24 08:53 BP 112/64 07/13/24 08:53 Pulse Ox 98 07/13/24 08:53 Oxygen Delivery Method Room Air 07/13/24 08:53 BMI result Body Mass Index 20.5 Const General: cooperative, comfortable, no acute distress, well developed and alert Orientation/consciousness: patient oriented x3 Limitations: no limitations HEENT Head: Yes normal to inspection, Yes normocephalic and Yes atraumatic Ears: hearing grossly normal bilaterally and external ears normal Eyes General: appearance normal, both eyes and all related structures Eyelids: Yes eyelids normal Sclerae: sclerae normal EOM: EOMs intact bilaterally Neck Neck: Yes normal visual inspection and Yes no lymphadenopathy Lymphatic: no lymphadenopathy noted Chest Chest palpation & inspection: normal inspection of the chest Resp Effort & Inspection: normal respiratory effort, able to speak in complete sentences, no audible wheezes, no cough, no stridor, not tachypneic, no tripod positioning and no use of accessory muscles Auscultation: wheezes expiratory wheezes and diminished lung sounds Cardio Jugular venous distension: no JVD Rate: regular rate Rhythm: regular rhythm Skin Other: warm, dry General skin exam: no rashes or lesions noted Neuro General: patient oriented x3 Cranial nerves: Yes Normal hearing present Cognition (Neuro): normal cognition Gait exam (Neuro): Normal gait present Extrem General: Yes normal to inspection, Yes capillary refill normal, Yes no clubbing, cyanosis or edema and Yes no pedal edema Psych Appearance: grossly normal and well kempt Speech and movement: Normal speech and movement present and Clear speech present Affect: normal affect Attitude: cooperative Thought process: Normal thought process present Thought content: Normal thought content present Insight: Good insight present (Psych) Judgement: Good judgement present (Psych) Results Reviewed Results Reviewed: [place] [id number] CT Scan Report Signed Patient: King Burt MR#: [id number] : 1970 Acct:[id number] Age/Sex: 54 / M ADM Date: 06/30/24 Loc: HO.CT Attending Dr: Michelle Luna NP Ordering Physician: Michelle Luna NP Date of Service: 06/30/24 Procedure(s): CT chest wo IV con Accession Number(s): [id number] cc: Homero Livingston MD; Michelle Luna NP~ Report Number: [id number]: Total DLP = 225.00 mGy-cm CLINICAL HISTORY: R91.8 - Other nonspecific abnormal finding of lung field CT chest without contrast Comparison: 03/20/2024 Findings: The heart is normal size. No evidence of enlarged lymphadenopathy. Right upper lung scarring and prominent smoking-related lung changes are redemonstrated. Spiculated left lower lung nodule measures 4 x 6 mm in the axial plane versus 7 x 7 mm previously. Additional small number of scattered bilateral lung nodules (including airway nodules) measuring up to 4 mm, some of which are new from the prior study. New small mildly branching, ground-glass opacity in the right middle lobe due to atelectasis versus infiltrate. New small branching opacity in the apical segment of the right lower lobe likely due to mucous plugging. The visualized upper abdomen is unremarkable. The bones are intact. IMPRESSION: Spiculated left lower lung nodule measures 4 x 6 mm in the axial plane versus 7 x 7 mm previously. Additional small number of scattered bilateral lung nodules (including airway nodules) measuring up to 4 mm, some of which are new from the prior study. Follow-up per Fleischner society criteria recommended. Fleischner 2017 Guidelines were utilized to develop follow up recommendations for this patient. The full article can be viewed at: https://goo.gl/JEEJEh Follow up strategies in solid nodules vary depending on patient risk assessment, with patient's classified as high or low risk. Low risk is associated with young age, smaller nodule size, regular margins, and location in an area other than the upper lobe. High risk factors include older age, heavy smoking, emphysema, carcinogen exposure, larger nodule size, irregular or spiculated margins, and upper lobe location. Nodule size and morphology are the dominant factors. Follow up of subsolid nodules (including ground glass and part solid opacities) is different when compared to solid nodules based on risk of malignancy and a longer doubling time in this group. Therefore when follow up is recommended, it is for a longer interval. Also in this group, recommendations may vary depending on a solitary lesion versus multiplicity of lesions. A calculator of estimated risk is available at: https://goo.gl/JEEJEh This document has been electronically signed by: Tania Saldivar MD on 07/01/2024 09:38:14 Dictated By: Tania Saldivar MD Signed By: <Electronically signed by Tania Saldivar MD in OV> 07/01/24937 DD/ 7 TD/TT: 07/01/24937 Sales Manager Prearranged Funerals: Assessment & Plan Assessment & Plan (1) COPD (chronic obstructive pulmonary disease): Code(s): J44.9 - Chronic obstructive pulmonary disease, unspecified Category: Medical (2) Smoker: Code(s): F17.200 - Nicotine dependence, unspecified, uncomplicated Category: Social Hx (3) Multiple pulmonary nodules: Code(s): R91.8 - Other nonspecific abnormal finding of lung field Category: Medical Plan Reviewed chest CT which revealed slight decrease in spiculated left lower lung nodule, now measures 4 x 6 mm versus 7 x 7 mm previously, chest CT 03/2024. Additional small number of scattered bilateral lung nodules (including airway nodules) measuring up to 4 mm, some of which are new from the prior study. There was also note of small mildly branching, ground-glass opacity in the right middle lobe due to atelectasis versus infiltrate. Given that patient had COVID prior to the chest CT and continues with bronchitic symptoms, will treat for possible secondary infection with Augmentin as well as prednisone, given wheezing on exam. Will also send in flutter valve to use after nebulized therapy, previously ordered however patient has eyt to obtain. Will repeat chest CT in 8-10 weeks to assess for resolution of possible infiltrate. Advised to continue to use Trelelgy and encouraged patient to use nebulizer PRN as well as acapella valve. Smoking cessation reviewed, motivated to quit using NRT. All questions were answered and patient is in agreement of plan. Will follow up after chest CT or sooner if needed. Orders: Orders CT chest wo IV con 10 Weeks R91.8 - Other nonspecific abnormal finding of lung field Medications: New amoxicillin-pot clavulanate 875-125 mg 1 tab PO Q12H 20 tabs 0RF prednisone see taper instructions; 40 mg Daily x3 days, 30 mg daily x3 days, 20 mg daily x3 days, 10 mg daily x3 days 10 mg PO DIRECTED 30 tabs 0RF Refilled nicotine (polacrilex) (Nicorette) 4 mg buccal Q2H 110 ea 3RF albuterol sulfate 90 mcg/actuation 2 puffs inhalation Q4-6H PRN 1 ea 3RF shortness of breath or wheezing albuterol sulfate 2.5 mg (3 mL) inhalation Q4-6H 30 days PRN 180 mL 4RF shortness of breath or wheezing Coding Level of Care Code Est Pt Level 4 (06964) Diagnoses COPD (chronic obstructive pulmonary disease) J44.9 Smoker F17.200 Multiple pulmonary nodules R91.8
[2024-07-13 08:53] VITALS: BP 112/64; PULSE 96; O2SAT 98; BMI 20.5
== END 2024-07-13 09:21 | disposition home or self-care (01) ==
PROVIDERS: PCP Family Medicine; Visit Provider Nurse Practitioner Family
DX: J44.9 Chronic obstructive pulmonary disease, unspecified (principal); F17.200 Nicotine dependence, unspecified, uncomplicated; R91.8 Other nonspecific abnormal finding of lung field
CPT/HCPCS: 99214

== ENCOUNTER → 2024-07-13 08:51 | Outpatient (BNVA) | payer OTHER, SELFPAY | PROVIDERS: PCP Family Medicine; Visit Provider Nurse Practitioner Family | DX: J44.9 Chronic obstructive pulmonary disease, unspecified (principal); R91.8 Other nonspecific abnormal finding of lung field; F17.210 Nicotine dependence, cigarettes, uncomplicated | CPT/HCPCS: 99212 ==

== ENCOUNTER 2024-07-29 13:33 | Outpatient (AMB) | payer OTHER, SELFPAY ==
--- NOTE | 2024-07-29 13:46 | MHC.PC.OV ---
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 Patient?has?a?history?of?COPD?mild?hypoxia?and?worsening?dyspnea?on?exertion. Also?had?a?recent?COVID?infection?and?possible?pneumonia.??He?has?been?treated?for?this. Also?has?known?spiculated?pulmonary?nodules, followed?by?pulmonary?medicine?and?has?another upcoming?CT?scan?to?evaluate?these. They?have?decreased?in?size?since?prior?CT?scan. Patient?notes?that?he?has?had?ongoing?and?worsening?dyspnea.??Having?symptoms?whenever?he?tries?to?walk.??Tried?to?use?a?bicycle?for?exercise?and?was?unable?to?do?so. Even?had?shortness?of?breath?when?standing. He?is?taking?his?medications?as?prescribed Has?resumed?smoking?however?and?is?again?trying?to?quit [facility] Medical History (Updated 07/29/24 @ 14:16 by Homero Livingston MD) Fracture of fifth metacarpal bone of right hand Broken collarbone Broken leg Alcohol use Hypertension COPD (chronic obstructive pulmonary disease) Surgical History (Updated 10/02/23 @ 14:32 by Lolly Hernandez CMA) H/O removal of neck cyst Family History (Updated 10/02/23 @ 14:34 by Lolly Hernandez CMA) Father Substance abuse Paternal Grandfather Substance abuse Mother Mental health disorder Social History (Updated 07/13/24 @ 09:00 by Nan Patel LPN) Housing: House Patient Tobacco Use Status: Former Tobacco user Cigarettes Per Day: 4 e-Cigarette/Vaping Use: Never Used Second Hand Smoke Exposure: No service: No Current occupational status: unemployed Current occupational exposures/hazards: No Cognitive needs: No Hearing needs: No Vision needs: No Questionnaire PHQ-9 Over the last 2 weeks, how often have you been bothered by any of the following problems? 1. Little interest or pleasure in doing things: not at all 2. Feeling down, depressed, or hopeless: not at all 3. Trouble falling or staying asleep, or sleeping too much: not at all 4. Feeling tired or having little energy: not at all 5. Poor appetite or overeating: not at all 6. Feeling bad about yourself - or that you are a failure or have let yourself or your family down: not at all 7. Trouble concentrating on things, such as reading the newspaper or watching television: not at all 8. Moving or speaking so slowly that other people could have noticed. Or the opposite - being so fidgety or restless that you have been moving around a lot more than usual: not at all 9. Thoughts that you would be better off or of hurting yourself in some way: not at all Total score: 0 Source: Developed by Drs. Yusuf Damon, Lizzeth Rouse, Mick Guallpa and colleagues, with an educational lorelei from [employer]. Thrive Questionnaire Date Thrive assessed: 04/14/24 I am a: Patient What is your living situation today?: I choose not to answer this question Within the past 12 months, did the food you bought not last and you didn't have the money to get more?: Never true Within the past 12 months, did you worry whether your food would run out before you got money to buy more?: Never true Do you have trouble paying for medicines?: No Do you have trouble getting transportation to medical appointments?: Yes Do you have trouble paying your heating and electricity bill?: No Do you have trouble taking care of your child, family member or friend?: No Do you have trouble with day-to-day activities such as bathing, preparing meals, shopping, managing finances, etc.?: No Are you currently unemployed and looking for a job?: I choose not to answer this question Are you interested in more education?: Yes Please select the resources that you would like help with: Education Currently or been in a relationship where the following occur: No concerns reported THRIVE Score: 1 AUDIT C Alcohol Use Questionnaire (AUDIT-C) 1. How often do you have a drink containing alcohol?: Never Total Score: 0 TAMMY-7 AMB Questionnaire TAMMY-7 Date TAMMY - 7 assessed: 04/14/24 Feeling nervous, anxious, or on edge: 3 = Nearly every day Not being able to stop or control worryin = Not at all Worrying too much about different things: 1 = Several days Trouble relaxin = Not at all Being so restless that it is hard to sit still: 0 = Not at all Becoming easily annoyed or irritable: 0 = Not at all Feeling afraid as if something awful might happen: 0 = Not at all Total TAMMY-7 score (0-4 normal; 5-9 mild; 10-14 moderate; 15-21 severe): 4 Source: Developed by Drs. Yusuf Damon, Lizzeth Rouse, Mick Guallpa and colleagues, with an educational lorelei from [employer]. Review of Systems Const Denies chills, Denies fatigue, Denies fever(s), Denies headache(s) and Denies weakness ENT Denies dizziness and Denies headache(s) Card Denies chest pain, Denies lightheadedness, Reports dyspnea and Denies other (Palpitations) Resp Denies cough, Reports dyspnea, Denies wheezing and Denies other ( shortness of breath) Musc Denies numbness and Denies tingling Neuro Denies dizziness, Denies headache(s), Denies numbness, Denies tingling, Denies paresthesias and Denies weakness Psych Denies anxiety and Denies depression Endo Denies fatigue Aller/Immun Denies wheezing Physical exam (Primary Care) Vital Signs: Last Vital Signs Temp 98.2 F 07/29/24 13:54 Pulse 109 H 07/29/24 13:54 Resp 12 07/29/24 13:54 BP 122/70 07/29/24 13:54 Pulse Ox 94 07/29/24 13:54 Oxygen Delivery Method Room Air 07/29/24 13:54 BMI result Body Mass Index 20.2 Tobacco/Smoking Status: Tobacco use Status Tobacco use date assessed 04/14/24 07/29/24 13:48 Patient Tobacco Use Status Former Tobacco user 07/29/24 13:48 e-Cigarette/Vaping Use Never Used 07/29/24 13:48 PHQ-9: PHQ-9 Score PHQ-9: Total score 0 07/29/24 13:48 Thrive Assessment: Date of Thrive Assessment Date Thrive assessed 04/14/24 07/29/24 13:48 Currently or been in a relationship where the following occur: No concerns reported Const General: no acute distress and well developed Nutritional Appearance: well nourished Orientation/consciousness: patient oriented x3 HENMT Head: Yes normocephalic and Yes atraumatic Eyes General: appearance normal, both eyes and all related structures Pupils: Equal, round and reactive pupils present EOM: EOMs intact bilaterally Resp Effort & Inspection: able to speak in complete sentences (With?brief?pauses?between?sentences.) Auscultation: clear to auscultation bilaterally (Distant?breath?sounds?throughout?but?otherwise?clear?to?auscultation) Cardio Rate: regular rate Rhythm: regular rhythm Heart sounds: S1 normal heart sound present, S2 normal heart sound present, no gallops, no murmurs and no rubs Neuro General: patient oriented x3 and gait normal Cranial nerves: Yes Equal, round and reactive pupils present Psych Affect: normal affect Coding Level of Care Code Est Pt Level 4 (84382) Diagnoses COPD (chronic obstructive pulmonary disease) J44.9 Multiple pulmonary nodules R91.8 Dyspnea on exertion R06.09 Hypoxia R09.02 Assessment & Plan Assessment & Plan (1) COPD (chronic obstructive pulmonary disease): Code(s): J44.9 - Chronic obstructive pulmonary disease, unspecified Category: Medical (2) Multiple pulmonary nodules: Code(s): R91.8 - Other nonspecific abnormal finding of lung field Category: Medical (3) Dyspnea on exertion: Code(s): R06.09 - Other forms of dyspnea Category: Medical (4) Hypoxia: Code(s): R09.02 - Hypoxemia Category: Medical Plan Patient?has?history?of?COPD?with?hypoxia?and?dyspnea?on?exertion He?is?using?his?inhaled?medications?as?prescribed. Still?has?significant?dyspnea?when?exerting?himself?even?mildly?such?as?walking Continue?using?inhaled?medications Strongly?encouraged?smoking?cessation Follow-up?with?Pulmonary?Medicine?as?recommended Patient?unable?to?work?for?gainful?employment Fill?that?form?for?transitional?assistance Multiple?spiculated?nodules.??These?have?decreased?in?size?since?his?last?CT?scan From 7 x 7 mm to 4 x 6 mm Also showed some new small nodules and new opacity in right lung. Has another CT scan to follow-up on this as opacity may have been secondary to a recent COVID?infection. DTA form filled out for pt
[2024-07-29 13:54] VITALS: BP 122/70; PULSE 109; RESP 12; TEMP 36.8; O2SAT 94; BMI 20.2
== END 2024-07-29 16:17 | disposition home or self-care (01) ==
LOC: HO.HMCFM 13:34
PROVIDERS: PCP Family Medicine; Visit Provider Family Medicine
DX: J44.9 Chronic obstructive pulmonary disease, unspecified (principal); R91.8 Other nonspecific abnormal finding of lung field; R06.09 Other forms of dyspnea; R09.02 Hypoxemia

== ENCOUNTER → 2024-07-29 13:33 | Outpatient (BNVA) | payer OTHER, SELFPAY | PROVIDERS: PCP Family Medicine; Visit Provider Family Medicine | DX: J44.9 Chronic obstructive pulmonary disease, unspecified (principal); R91.8 Other nonspecific abnormal finding of lung field; R06.09 Other forms of dyspnea; R09.02 Hypoxemia | CPT/HCPCS: 99212 ==

== ENCOUNTER 2024-09-17 14:44 | Outpatient (REF) | payer OTHER, SELFPAY ==
--- NOTE | ~2024-09-17 | CT_ITS ---
EXAMINATION: CT CHEST WITHOUT CONTRAST CLINICAL INFORMATION: Other nonspecific abnormal finding of lung field. Follow-up nodule left lower lobe. COMPARISON: CT chest 06/30/2024, 03/20/2024. TECHNIQUE: Multidetector volumetric CT imaging of the chest was done. Axial MIP volume rendering provided. Sagittal and coronal reformatted images were obtained. This CT examination was performed using dose optimization techniques as appropriate, variously including the following: *Automated exposure control *Adjustment of mA and/or kV according to patient size (this includes techniques or standardized protocols for targeted exams where dose is matched to indication/reason for exam; i.e. extremities or head) *Use of iterative reconstruction technique FINDINGS: NODULES: -Spiculated nodule lateral right upper lobe measuring 1.9 x 1.3 cm axial plane (series 4, image 60), previously 3 mm. This is highly suspicious. -Spiculated nodule lateral left upper lobe, subpleural location, measuring 1.5 x 1.1 cm axial plane (series 4, image 55), previously not present. This is highly suspicious. -Spiculated irregular nodule lateral left upper lobe measuring 2.0 x 1.4 cm axial plane (series 4, image 66), previously 4 mm, centrally cystic. This is highly suspicious. -4 mm nodule central left upper lobe (series 4, image 61), new. -4 mm nodule anterior left upper lobe (series 4, image 65), new. -There are several additional new pulmonary nodules present in both lungs LUNGS: -Severe centrilobular emphysema with upper lobe predominance . -Stable appearance of reticular scarring in the central right upper lobe (series 4, image 48). -Groundglass and reticular oval parenchymal abnormality, currently 2.0 x 1.4 cm (series 4, image 118), previously 1.5 x 1.2 cm. This is suspicious. -Diffuse thickening of the small airways, with mild associated bronchiectasis, findings suggesting chronic bronchitis. -No pleural effusion or pneumothorax. MEDIASTINUM: -Normal thyroid CT. -No abnormal lymphadenopathy or masses within the mediastinum. -Aorta is moderately calcified but normal in caliber and contour. -Main pulmonary artery is normal in size. -Heart size is normal. There is no pericardial effusion. -There is a small type I hiatus hernia at the GE junction. Esophagus is otherwise normal. CORONARY ARTERY CALCIFICATION: Mild three-vessel calcification. AXILLA/CHEST WALL: No lymphadenopathy or mass. UPPER ABDOMEN: -No abnormality identified. OSSEOUS STRUCTURES: -Mild osteopenia. No suspicious lytic or blastic bone lesions identified. CT/CT chest wo IV con IMPRESSION: 1. Interval development of numerous highly suspicious pulmonary nodules, several with spiculated appearance, the largest in the lateral left upper lobe measuring 2.0 x 1.4 cm. Findings are highly suspicious for malignancy and correlation with PET/CT and/or biopsy recommended. 2. Moderate to severe centrilobular emphysema with stable apical scarring. 3. Diffuse small airway thickening suggesting chronic bronchitis. 4. No abnormal lymphadenopathy identified. Electronically signed by: Cyril Bishop MD 09/17/2024 04:01 PM EDT
== END 2024-09-17 14:45 | disposition home or self-care (01) ==
LOC: HO.CT 14:44
PROVIDERS: PCP Family Medicine; Visit Provider Nurse Practitioner Family
DX: R91.8 Other nonspecific abnormal finding of lung field (principal)
CPT/HCPCS: 71250

== ENCOUNTER → 2024-09-17 14:46 | Outpatient (BNV) | payer OTHER, SELFPAY | PROVIDERS: PCP Family Medicine; Visit Provider Radiology Diagnostic Radiology | DX: R91.8 Other nonspecific abnormal finding of lung field (principal) | CPT/HCPCS: 71250 ==

== ENCOUNTER 2024-10-12 09:32 | Outpatient (AMB) | payer OTHER, SELFPAY ==
--- NOTE | 2024-10-12 09:33 | A.OFFVIS_ITS ---
Vital Signs 3 10/12/24 09:35 Height 5 ft 9 in Weight 135 lb 9.349 oz BMI 20.0 BP 102/66 Blood Pressure Location Rt brachial Position Sitting Pulse 104 H Pulse Source Pulse Oximeter Pulse Oximetry (%) 95 Oxygen Delivery Method Room Air Intake Visit Reasons: Shortness of breath Allergies No Known Allergies [No Known Allergies*] Allergy (Verified 10/12/24 09:39) HPI HPI Shortness of breath: Details: King is a pleasant 54 year old male, former 20 pack year smoker, recently quit with underlying COPD and HTN. He has been using Trelegy with moderate effect, using albuterol MDI/neb PRN. At the last visit in July he reported bronchitic symptoms and was treated with Augmentin and prednisone with resolution of symptoms. He had a chest CT in September, denied respiratory symptoms at that time, which revealed severe centrilobular emphysema with upper lobe predominance, stable appearance of reticular scarring in the central right upper lobe with groundglass and reticular oval parenchymal abnormality, currently 2.0 x 1.4 cm , previously 1.5 x 1.2 cm with multiple new nodules, report below. Ultimately sent for PET scan. Unfortunately during the time of the PET scan he reported 1 week history of productive cough with green sputum, chills, as well as worsening dyspnea and wheezing. Today he continues with symptoms and presents to review PET scan. [facility] Medical History (Updated 09/18/24 @ 13:19 by Thomas Orantes MD) Fracture of fifth metacarpal bone of right hand Broken collarbone Broken leg Alcohol use Hypertension COPD (chronic obstructive pulmonary disease) Surgical History (Updated 10/02/23 @ 14:32 by Lolly Hernandez CMA) H/O removal of neck cyst Family History (Updated 10/02/23 @ 14:34 by Lolly Hernandez CMA) Father Substance abuse Paternal Grandfather Substance abuse Mother Mental health disorder Social History Housing: House Patient Tobacco Use Status: Former Tobacco user Cigarettes Per Day: 4 e-Cigarette/Vaping Use: Never Used Second Hand Smoke Exposure: No service: No Current occupational status: unemployed Current occupational exposures/hazards: No Cognitive needs: No Hearing needs: No Vision needs: No Review of Systems Const Denies excessive sweating, Denies fever(s), Denies headache(s) and Denies night sweats Eyes Denies dry eyes, Denies irritation and Denies itchy eyes ENT Reports Normal hearing present, Denies headache(s), Denies nasal discharge, Denies post nasal drip and Denies sore throat Card Denies chest pain, Denies chest pain at rest, Denies chest pain with activity, Denies claudication, Denies leg edema, Reports dyspnea on exertion, Denies orthopnea and Denies paroxysmal nocturnal dyspnea Resp Reports change in phlegm color, Reports chest congestion, Reports cough, Denies hemoptysis, Denies excessive phlegm production, Denies pain on inspiration, Denies pain with cough, Reports dyspnea on exertion, Denies stridor and Reports wheezing Musc Denies myalgias Neuro Reports Normal hearing present and Denies headache(s) Endo Denies excessive sweating Edward/Lymph Denies lymphadenopathy Aller/Immun Denies itchy eyes, Denies seasonal rhinorrhea and Reports wheezing Physical Exam Vital Signs: Last Vital Signs Pulse 104 H 10/12/24 09:35 BP 102/66 10/12/24 09:35 Pulse Ox 95 10/12/24 09:35 Oxygen Delivery Method Room Air 10/12/24 09:35 BMI result Body Mass Index 20.0 Const General: cooperative, comfortable, no acute distress, well developed and alert Orientation/consciousness: patient oriented x3 Limitations: no limitations HEENT Head: Yes normal to inspection, Yes normocephalic and Yes atraumatic Ears: hearing grossly normal bilaterally and external ears normal Eyes General: appearance normal, both eyes and all related structures Eyelids: Yes eyelids normal Sclerae: sclerae normal EOM: EOMs intact bilaterally Neck Neck: Yes normal visual inspection and Yes no lymphadenopathy Lymphatic: no lymphadenopathy noted Chest Chest palpation & inspection: normal inspection of the chest Resp Effort & Inspection: normal respiratory effort, able to speak in complete sentences, no audible wheezes, no cough, no stridor, not tachypneic, no tripod positioning and no use of accessory muscles Auscultation: wheezes expiratory wheezes and diminished lung sounds Cardio Jugular venous distension: no JVD Rate: regular rate Rhythm: regular rhythm Skin Other: warm, dry General skin exam: no rashes or lesions noted Neuro General: patient oriented x3 Cranial nerves: Yes Normal hearing present Cognition (Neuro): normal cognition Gait exam (Neuro): Normal gait present Extrem General: Yes normal to inspection, Yes capillary refill normal, Yes no clubbing, cyanosis or edema and Yes no pedal edema Psych Appearance: grossly normal and well kempt Speech and movement: Normal speech and movement present and Clear speech present Affect: normal affect Attitude: cooperative Thought process: Normal thought process present Thought content: Normal thought content present Insight: Good insight present (Psych) Judgement: Good judgement present (Psych) Results Reviewed Results Reviewed: [address] [address] [address] Scan Report Signed Patient: King Burt MR#: [id number] : 1970 Acct:[id number] Age/Sex: 54 / M ADM Date: 09/17/24 Loc: HO.CT Attending Dr: Michelle Luna NP Ordering Physician: Michelle Luna NP Date of Service: 09/17/24 Procedure(s): CT chest wo IV con Accession Number(s): [id number] cc: Homero Livingston MD; Michelle Luna NP~ Report Number: [id number]: Total DLP = 368.00 mGy-cm EXAMINATION: CT CHEST WITHOUT CONTRAST CLINICAL INFORMATION: Other nonspecific abnormal finding of lung field. Follow-up nodule left lower lobe. COMPARISON: CT chest 06/30/2024, 03/20/2024. TECHNIQUE: Multidetector volumetric CT imaging of the chest was done. Axial MIP volume rendering provided. Sagittal and coronal reformatted images were obtained. This CT examination was performed using dose optimization techniques as appropriate, variously including the following: *Automated exposure control *Adjustment of mA and/or kV according to patient size (this includes techniques or standardized protocols for targeted exams where dose is matched to indication/reason for exam; i.e. extremities or head) *Use of iterative reconstruction technique FINDINGS: NODULES: -Spiculated nodule lateral right upper lobe measuring 1.9 x 1.3 cm axial plane (series 4, image 60), previously 3 mm. This is highly suspicious. -Spiculated nodule lateral left upper lobe, subpleural location, measuring 1.5 x 1.1 cm axial plane (series 4, image 55), previously not present. This is highly suspicious. -Spiculated irregular nodule lateral left upper lobe measuring 2.0 x 1.4 cm axial plane (series 4, image 66), previously 4 mm, centrally cystic. This is highly suspicious. -4 mm nodule central left upper lobe (series 4, image 61), new. -4 mm nodule anterior left upper lobe (series 4, image 65), new. -There are several additional new pulmonary nodules present in both lungs LUNGS: -Severe centrilobular emphysema with upper lobe predominance . -Stable appearance of reticular scarring in the central right upper lobe (series 4, image 48). -Groundglass and reticular oval parenchymal abnormality, currently 2.0 x 1.4 cm (series 4, image 118), previously 1.5 x 1.2 cm. This is suspicious. -Diffuse thickening of the small airways, with mild associated bronchiectasis, findings suggesting chronic bronchitis. -No pleural effusion or pneumothorax. MEDIASTINUM: -Normal thyroid CT. -No abnormal lymphadenopathy or masses within the mediastinum. -Aorta is moderately calcified but normal in caliber and contour. -Main pulmonary artery is normal in size. -Heart size is normal. There is no pericardial effusion. -There is a small type I hiatus hernia at the GE junction. Esophagus is otherwise normal. CORONARY ARTERY CALCIFICATION: Mild three-vessel calcification. AXILLA/CHEST WALL: No lymphadenopathy or mass. UPPER ABDOMEN: -No abnormality identified. OSSEOUS STRUCTURES: -Mild osteopenia. No suspicious lytic or blastic bone lesions identified. CT/CT chest wo IV con IMPRESSION: 1. Interval development of numerous highly suspicious pulmonary nodules, several with spiculated appearance, the largest in the lateral left upper lobe measuring 2.0 x 1.4 cm. Findings are highly suspicious for malignancy and correlation with PET/CT and/or biopsy recommended. 2. Moderate to severe centrilobular emphysema with stable apical scarring. 3. Diffuse small airway thickening suggesting chronic bronchitis. 4. No abnormal lymphadenopathy identified. 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: Assessment & Plan Assessment & Plan (1) COPD (chronic obstructive pulmonary disease): Code(s): J44.9 - Chronic obstructive pulmonary disease, unspecified Category: Medical (2) Smoker: Code(s): F17.200 - Nicotine dependence, unspecified, uncomplicated Category: Social Hx (3) Multiple pulmonary nodules: Code(s): R91.8 - Other nonspecific abnormal finding of lung field Category: Medical Plan Reviewed chest CT 09/2024 which revealed spiculated nodule lateral right upper lobe measuring 1.9 x 1.3 cm , previously 3 mm, spiculated nodule lateral left upper lobe, measuring 1.5 x 1.1 cm, previously not present, spiculated irregular nodule lateral left upper lobe measuring 2.0 x 1.4 cm, previously 4 mm, with two new 4 mm nodules of the RONAK as well as several smaller new pulmonary nodules present in both lungs. PET scan revealed variable FDG activity within the lungs which could be inflammatory/infectious especially given bronchitic symptoms. Will treat patient with levaquin and prednisone today and repeat chest CT in 6-8 weeks to assess for resolution. If no improvement in nodules, will consider biopsy. Patient aware to call if symptoms do not change and to call if symptoms recur during time of repeat CT. At this time, encouraged continued use of Trelegy and DuoNeb. Applauded patient on smoking cessation and he is motivated to continue with the use of NRT. All questions were answered and patient is in agreement of plan. Will follow up after chest CT or sooner if needed. Orders: Orders 2 CT chest wo IV con 6 Weeks R91.8 - Other nonspecific abnormal finding of lung field Medications: New 2 levofloxacin 750 mg PO DAILY 7 tabs 0RF prednisone see taper instructions; 40 mg Daily x3 days, 30 mg daily x3 days, 20 mg daily x3 days, 10 mg daily x3 days 10 mg PO DIRECTED 30 tabs 0RF Coding Level of Care Code Est Pt Level 4 (52742) Complex EM visit Add On G2211 Diagnoses COPD (chronic obstructive pulmonary disease) J44.9 Smoker F17.200 Multiple pulmonary nodules R91.8
[2024-10-12 09:35] VITALS: BP 102/66; PULSE 104; O2SAT 95
--- OUTSIDE RECORDS SUMMARY | 2024-10-12 10:13 | XMS_ITS | Clinical Summary ---
Author Organization [facility] Address [address] [place] [address] Phone Care Team Providers Care Rn Lactation Consultant Name Role Phone Unavailable Primary Care Provider Unavailabl e Encounters Date Type Department Care Team Description 09/30/2024 1:23 PM EDT - 09/30/2024 11:59 PM EDT Hospital Encounter [facility] PET Scan [address] [place] [address] Other disorders of lung Discharge Disposition: Home or Self Care from Last 3 Months Social History Tobacco Use Types Packs/Day Years Used Date Smoking Tobacco: Never Assessed Sex and Gender Information Value Date Recorded Sex Assigned at Not on file Legal Sex Male 11:13 AM EDT Gender Identity Not on file Sexual Orientation Not on file Plan of Treatment Health Maintenance Due Date Last Done Comments DTaP,Tdap,and Td Vaccines (1 - Tdap) 1987 Hepatitis B Vaccines (1 of 3 - 19+ 3-dose series) 1987 Pneumococcal Vaccine: 50+ Ye ars (1 of 1 - PCV) 2018 Zoster Vaccines (1 of 2) 2018 COVID-19 Vaccine ( - 2023-2 5 season) 2024 Cholesterol Screening (Lipid Panel) 09/29/2024 Colorectal Cancer Screening: Colonoscopy 09/29/2024 Depression Screening 09/29/2024 HIV Screening 09/29/2024 Hepatitis C Screening 09/29/2024 Social Influencers of Health Screening 09/29/2024 Influenza Vaccine (Season Ended) 2025 HIB Vaccines Aged Out No longer eligi ble based on patient's age to complete this topic HPV Vaccines Aged Out No longer eligi ble based on patient's age to complete this topic Hepatitis A Vaccines Aged Out No long er eligible based on patient's age to complete this topic IPV Vaccines Aged Out No longer eligi ble based on patient's age to complete this topic MMR Vaccines Aged Out No longer eligi ble based on patient's age to complete this topic Meningococcal ACWY Vaccine Aged Out N o longer eligible based on patient's age to complete this topic Meningococcal B Vaccine Aged Out No l onger eligible based on patient's age to complete this topic Pneumococcal Vaccine: Pediat rics (0 to 5 Years) and At-Risk Patients (6 to 64 Years) Aged Out No longer eligible b ased on patient's age to complete this topic RSV Immunization Patients Un soren 20 months Aged Out No longer eligible b ased on patient's age to complete this topic Varicella Vaccines Aged Out No longer eligible based on patient's age to complete this topic Procedures Procedure Name Priority Date/Time Associated Diagnosis Comments PET CT SKULL TO MID THIGH INITIAL Routine 09/30/2024 3:00 PM EDT Other disorders of lung from Last 3 Months Results * PET CT Skull to Mid Thigh Initial (09/30/2024 3:00 PM EDT) Anatomical Region Laterality Modality Body Radiographic Justyna ging 10/06/2024 10:2 4 AM EDT Impressions 10/06/2024 10:36 AM EDT 1. ??Nonspecific multifocal bilateral nodules/opacities in both lungs demonstrating variable FDG activity; some of which may represent postinfectious/postinflammatory process. ??Underlying malignancy especially in the upper lobe nodules is also a possibility. ?? 2. ??Mild left hilar activity slightly increased from mediastinal blood pool; either reactive or malignant in etiology. 3. ??Nonspecific FDG activity within the esophagus and stomach. ??Correlation with endoscopy is suggested. 4. ??Asymmetric activity in the right prostate gland. ??Correlation with prostate-specific antigen values is suggested. Please note: The CT was acquired at a low radiation dose settings. ??The images are of nondiagnostic quality and used solely for purposes of attenuation correction and slice localization for the PET scan. ??If a diagnostic CT study is desired it must be ordered separately. -------- FINAL REPORT -------- Dictated By: Eloisa Stevenson Dictated Date: 10/06/2024 10:24 ET Assigned Physician: Eloisa Stevenson Reviewed and Electronically Signed By: Eloisa Stevenson Signed Date: 10/06/2024 10:36 ET Workstation ID: [id number] Transcribed By: Self Edit Transcribed Date: 10/06/2024 10:24 ET Narrative 10/06/2024 10:36 AM EDT INDICATION: LUNG NODULES TECHNIQUE: FDG PET-CT imaging was performed from the skull bases through the thighs in a single acquisition with data set reconstructed in axial, coronal, and sagittal planes at the computer workstation with fused data from both the PET imaging study and attenuation correction CT. The CT portion of the examination was done strictly for attenuation correction and is not a true diagnostic CT examination. DLP: ??336 mGy-cm Radiopharmaceutical: 13.13 mCi of F-18 FDG IV. Blood glucose: 88 mg/dl. COMPARISON: Outside chest CTs June and September 2024 FINDINGS: HEAD AND NECK: No abnormal FDG activity. THORAX: Multifocal nodules/opacities in both lungs demonstrating variable FDG activity. ??For example, nonspecific FDG activity in the right upper lobe SUV max 2.3. ??9 mm nodule left upper lobe SUV max 2.6. ??16 x 13 mm nodule in the right upper lobe SUV max 4.4. ??11 x 16 mm nodule in the left upper lobe SUV max 4.4. ??New 2.4 x 1.3 cm opacity/nodule in the superior segment of the left lower lobe SUV max 4.9. ??Nonspecific opacities in the lower lobes SUV max 2.5 on the left and 2.0 on the right. Right paratracheal lymph node SUV max 1.4, left hilar activity SUV max 2.8, right hilar activity SUV max 2.1, left perihilar activity SUV max 2.4, subcarinal SUV max 2 (mediastinal blood pool SUV Max 2.3). Nonspecific diffuse FDG activity of the proximal, mid and distal esophagus SUV max 2.9. ABDOMEN/PELVIS: Nonspecific FDG activity involving the gastric fundus and body SUV max 6.9. Nonspecific focal activity in the right prostate gland SUV max 3.2. ??Nonspecific bowel activity. MUSCULOSKELETAL: No abnormal FDG activity. Procedure Note Eloisa Stevenson MD - 10/06/2024 INDICATION: LUNG NODULES TECHNIQUE: FDG PET-CT imaging was performed from the skull bases throughthe thighs in a single acquisition with data set reconstructed in axial,coronal, and sagittal planes at the computer workstation with fused datafrom both the PET imaging study and attenuation correction CT. The CTportion of the examination was done strictly for attenuation correctionand is not a true diagnostic CT examination. DLP: 336 mGy-cm Radiopharmaceutical: 13.13 mCi of F-18 FDG IV. Blood glucose: 88 mg/dl. COMPARISON: Outside chest CTs June and September 2024 FINDINGS: HEAD AND NECK: No abnormal FDG activity. THORAX: Multifocal nodules/opacities in both lungs demonstrating variableFDG activity. For example, nonspecific FDG activity in the right upperlobe SUV max 2.3. 9 mm nodule left upper lobe SUV max 2.6. 16 x 13 mmnodule in the right upper lobe SUV max 4.4. 11 x 16 mm nodule in the leftupper lobe SUV max 4.4. New 2.4 x 1.3 cm opacity/nodule in the superiorsegment of the left lower lobe SUV max 4.9. Nonspecific opacities in thelower lobes SUV max 2.5 on the left and 2.0 on the right. Right paratracheal lymph node SUV max 1.4, left hilar activity SUV max2.8, right hilar activity SUV max 2.1, left perihilar activity SUV max2.4, subcarinal SUV max 2 (mediastinal blood pool SUV Max 2.3). Nonspecific diffuse FDG activity of the proximal, mid and distal esophagusSUV max 2.9. ABDOMEN/PELVIS: Nonspecific FDG activity involving the gastric fundus andbody SUV max 6.9. Nonspecific focal activity in the right prostate gland SUV max 3.2.Nonspecific bowel activity. MUSCULOSKELETAL: No abnormal FDG activity. IMPRESSION: 1. Nonspecific multifocal bilateral nodules/opacities in both lungsdemonstrating variable FDG activity; some of which may representpostinfectious/postinflammatory process. Underlying malignancy especiallyin the upper lobe nodules is also a possibility. 2. Mild left hilar activity slightly increased from mediastinal bloodpool; either reactive or malignant in etiology. 3. Nonspecific FDG activity within the esophagus and stomach.Correlation with endoscopy is suggested. 4. Asymmetric activity in the right prostate gland. Correlation withprostate- specific antigen values is suggested. Please note: The CT was acquired at a low radiation dose settings. The images are ofnondiagnostic quality and used solely for purposes of attenuationcorrection and slice localization for the PET scan. If a diagnostic CTstudy is desired it must be ordered separately. -------- FINAL REPORT -------- Dictated By: Eloisa Stevenson Dictated Date: 10/06/2024 10:24 ET Assigned Physician: Eloisa Stevenson Reviewed and Electronically Signed By: Eloisa Stevenson Signed Date: 10/06/2024 10:36 ET Workstation ID: [id number] Transcribed By: Self Edit Transcribed Date: 10/06/2024 10:24 ET Thomas Orantes MD IM NM PROCEDURES Final Result from Last 3 Months Insurance [facility]
== END 2024-10-12 10:03 | disposition home or self-care (01) ==
LOC: HO.HPS 09:32
PROVIDERS: PCP Family Medicine; Visit Provider Nurse Practitioner Family
DX: J44.9 Chronic obstructive pulmonary disease, unspecified (principal); F17.200 Nicotine dependence, unspecified, uncomplicated; R91.8 Other nonspecific abnormal finding of lung field
CPT/HCPCS: 99214; G2211

== ENCOUNTER → 2024-10-12 09:32 | Outpatient (BNVA) | payer OTHER, SELFPAY | PROVIDERS: PCP Family Medicine; Visit Provider Nurse Practitioner Family | DX: J44.9 Chronic obstructive pulmonary disease, unspecified (principal); R91.8 Other nonspecific abnormal finding of lung field; Z87.891 Personal history of nicotine dependence | CPT/HCPCS: 99212 ==

== ENCOUNTER 2024-11-23 10:51 | Outpatient (AMB) | payer OTHER, SELFPAY ==
--- NOTE | 2024-11-23 10:53 | A.OFFVIS_ITS ---
Vital Signs 11/23/24 11:04 Height 5 ft 9 in Weight 136 lb 10.986 oz BMI 20.2 BP 138/74 Blood Pressure Location Rt brachial Position Sitting Respiration 18 Pulse 90 Pulse Source Pulse Oximeter Pulse Oximetry (%) 96 Oxygen Delivery Method Room Air Intake Visit Reasons: Shortness of breath Water Leak Repairer Required: No Allergies No Known Allergies (No Known Allergies*) Allergy (Verified 11/23/24 11:02) HPI HPI Shortness of breath: Details: King is a pleasant 54 year old male, former 20 pack year smoker, recently quit 3 weeks ago with underlying COPD and HTN. He has been using Trelegy with moderate effect, using albuterol MDI/neb PRN. Since April 2024 patient has ongoing respiratory symptoms that would be treated with abx/prednisone improve and resolve however reoccur. He has also had waxing and waning pulmonary nodules. He had a chest CT in September, denied respiratory symptoms at that time, which revealed severe centrilobular emphysema with upper lobe predominance, stable appearance of reticular scarring in the central right upper lobe with groundglass and reticular oval parenchymal abnormality, currently 2.0 x 1.4 cm , previously 1.5 x 1.2 cm with multiple new nodules. Ultimately sent for PET scan which revealed varying FDG activity and referred to thoracic, Dr. Butler at [facility]. He underwent biopsy on 11/03 which revealed organizing pneumonia and respiratory bronchiolitis, negative for malignancy. He does endorse mold exposu re which he has since moved two months prior, as findings are possibly suggestive of HPS. He continues with dyspnea and productive cough with clear sputum as well as mild wheezing. Denies chest congestion, fevers or chills. Since follow up with Dr. 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 From consult note chest CT will be performed in the Fall at [facility] to assess stability/improvement after prednisone. [facility] Medical History (Updated 11/23/24 @ 12:35 by Michelle Luna NP) Fracture of fifth metacarpal bone of right hand Broken collarbone Broken leg Alcohol use Hypertension COPD (chronic obstructive pulmonary disease) Surgical History (Updated 10/02/23 @ 14:32 by Lolly Hernandez CMA) H/O removal of neck cyst Family History (Updated 10/02/23 @ 14:34 by Lolly Hernandez CMA) Father Substance abuse Paternal Grandfather Substance abuse Mother Mental health disorder Social History Housing: House Patient Tobacco Use Status: Former Tobacco user Cigarettes Per Day: 4 e-Cigarette/Vaping Use: Never Used Second Hand Smoke Exposure: No service: No Current occupational status: unemployed Current occupational exposures/hazards: No Cognitive needs: No Hearing needs: No Vision needs: No Review of Systems Const Denies excessive sweating, Denies fever(s), Denies headache(s) and Denies night sweats Eyes Denies dry eyes, Denies irritation and Denies itchy eyes ENT Reports Normal hearing present, Denies headache(s), Denies nasal discharge, Denies post nasal drip and Denies sore throat Card Denies chest pain, Denies chest pain at rest, Denies chest pain with activity, Denies claudication, Denies leg edema, Reports dyspnea on exertion, Denies orthopnea and Denies paroxysmal nocturnal dyspnea Resp Denies change in phlegm color, Denies chest congestion, Reports cough, Denies hemoptysis, Denies excessive phlegm production, Denies pain on inspiration, Denies pain with cough, Reports dyspnea on exertion, Denies stridor and Reports wheezing Musc Denies myalgias Neuro Reports Normal hearing present and Denies headache(s) Endo Denies excessive sweating Edward/Lymph Denies lymphadenopathy Aller/Immun Denies itchy eyes, Denies seasonal rhinorrhea and Reports wheezing Physical Exam Vital Signs: Last Vital Signs Pulse 90 11/23/24 11:04 Resp 18 11/23/24 11:04 BP 138/74 11/23/24 11:04 Pulse Ox 96 11/23/24 11:04 Oxygen Delivery Method Room Air 11/23/24 11:04 BMI result Body Mass Index 20.2 Const General: cooperative, healthy appearing, comfortable, no acute distress, well developed and alert Orientation/consciousness: patient oriented x3 Limitations: no limitations HEENT Head: Yes normal to inspection, Yes normocephalic and Yes atraumatic Ears: hearing grossly normal bilaterally and external ears normal Eyes General: appearance normal, both eyes and all related structures Eyelids: Yes eyelids normal Sclerae: sclerae normal EOM: EOMs intact bilaterally Neck Neck: Yes normal visual inspection and Yes no lymphadenopathy Lymphatic: no lymphadenopathy noted Chest Chest palpation & inspection: normal inspection of the chest Resp Effort & Inspection: normal respiratory effort, able to speak in complete sentences, no audible wheezes, no cough, no stridor, not tachypneic, no tripod positioning and no use of accessory muscles Auscultation: diminished lung sounds Cardio Jugular venous distension: no JVD Rate: regular rate Rhythm: regular rhythm Skin Other: warm, dry General skin exam: no rashes or lesions noted Neuro General: patient oriented x3 Cranial nerves: Yes Normal hearing present Cognition (Neuro): normal cognition Gait exam (Neuro): Normal gait present Extrem General: Yes normal to inspection, Yes capillary refill normal, Yes no clubbing, cyanosis or edema and Yes no pedal edema Psych Appearance: grossly normal and well kempt Speech and movement: Normal speech and movement present and Clear speech present Affect: normal affect Attitude: cooperative Thought process: Normal thought process present Thought content: Normal thought content present Insight: Good insight present (Psych) Judgement: Good judgement present (Psych) Assessment & Plan Assessment & Plan (1) Organizing pneumonia: Code(s): J84.89 - Other specified interstitial pulmonary diseases Category: Medical (2) COPD (chronic obstructive pulmonary disease): Code(s): J44.9 - Chronic obstructive pulmonary disease, unspecified Category: Medical (3) Smoker: Code(s): F17.200 - Nicotine dependence, unspecified, uncomplicated Category: Social Hx (4) Multiple pulmonary nodules: Code(s): R91.8 - Other nonspecific abnormal finding of lung field Category: Medical Plan Chest CT 09/2024 which revealed spiculated nodule lateral right upper lobe measur ing 1.9 x 1.3 cm , previously 3 mm, spiculated nodule lateral left upper lobe, measuring 1.5 x 1.1 cm, previously not present, spiculated irregular nodule lateral left upper lobe measuring 2.0 x 1.4 cm, previously 4 mm, with two new 4 mm nodules of the RONAK as well as several smaller new pulmonary nodules present in both lungs. PET scan revealed variable FDG activity within the lungs which could be inflammatory/infectious especially given bronchitic symptoms. Reviewed biopsy results which were consistent with organizing pneumonia. Since patient continues to be symptomatic will send course of prednisone and a slow taper every two weeks which he was agreeable, tolerating prednisone in the past. Applauded patient on smoking cessation and he is motivated to continue with the use of NRT. All questions were answered and patient is in agreement of plan. Will follow up in 6 weeks or sooner if needed. Medications: New prednisone 40 mg (2 x 20 mg) PO DAILY 60 tabs 0RF prednisone start prednisone 40 mg x 2 weeks followed by 30 mg x 2 weeks, 20 mg x 2 weeks , 10 mg x 2 weeks 10 mg PO DIRECTED 84 tabs 0RF Discontinued levofloxacin Discontinued Reason: Patient Completed Course 750 mg PO DAILY 7 tabs 0RF prednisone see taper instructions; 40 mg Daily x3 days, 30 mg daily x3 days, 20 mg daily x3 days, 10 mg daily x3 days Discontinued Reason: Patient Completed Course 10 mg PO DIRECTED 30 tabs 0RF Coding Level of Care Code Est Pt Level 4 (11866) Complex EM visit Add On G2211 Diagnoses Organizing pneumonia J84.89 COPD (chronic obstructive pulmonary disease) J44.9 Smoker F17.200 Multiple pulmonary nodules R91.8
[2024-11-23 11:04] VITALS: BP 138/74; PULSE 90; RESP 18; O2SAT 96; BMI 20.2
--- OUTSIDE RECORDS SUMMARY | 2024-11-23 11:49 | XMS_ITS | Clinical Summary ---
Author Organization [facility] Address [address] [place] [address] Phone Care Team Providers Care Supply Technician Name Role Phone Homero Livingston MD Primary Care Provider Allergies No known active allergies Medications cloNIDine (CATAPRES) 0.1 mg tablet Take 1 tablet (0.1 mg total) by mouth at bedtime. 5 Active Trelegy Ellipta 200-62.5-25 mcg inhaler Inhale 1 puff (200 mcg total) by mouth 1 (one) time each day. 5 Active traZODone (DESYREL) 50 mg tablet Take 1 tablet (50 mg total) by mouth at bedtime. 5 Active dilTIAZem SR (CARDIZEM SR) 60 mg 12 hr capsule 1 capsule (60 mg total) 2 (two) times a day. 5 Active hydrOXYzine HCL (ATARAX) 25 mg tabletIndicatio ns:pruritus of skin Take 2 tablets (50 mg total) by mouth 4 (four) times a day if needed for itching. Active hydrOXYzine HCL (ATARAX) 25 mg tablet 5 10/27/19 25 Discontinu ed(Therapy completed) predniSONE (DELTASONE) 10 mg tablet 5 10/31/19 25 Discontinu ed(Therapy completed) levoFLOXacin (LEVAQUIN) 750 mg tablet 5 10/27/19 25 Discontinu ed(Therapy completed) hydrOXYzine HCL (ATARAX) 25 mg tablet Take 1 tablet (25 mg total) by mouth at bedtime as needed for itching. 11/04/19 25 Discontinu ed(Stop Taking at Discharge) Active Problems Problem Noted Date Diagnosed Date Pulmonary nodules 10/26/2024 Assessment & Plan (11/12/2024 11:45 AM EDT): Mr. Burt is a 54-year-old male who had a navigational bronchoscopy/EBUS with biopsy of right upper lobe and left upper lobe pulmonary nodules, as well as mediastinal lymph nodes on November 03, 2024. Postoperative pathology from the right upper lobe pulmonary nodule FNA and cryobiopsy are both negative for malignancy. Left upper lobe pulmonary nodule FNA and cryobiopsy are also negative for malignancy. The specimens instead show alveolar tissue with evidence of organizing pneumonia and interstitial fibrosis. The right upper and left upper bronchial brushings and washings were also negative for malignancy. Right paratracheal and left paratracheal lymph nodes were negative for malignancy. Subcarinal lymph node was nondiagnostic. Patient appears to have tolerated his procedure well. He has no evidence of postoperative complication at time of this visit. Pathology from both pulmonary nodules in the right and left were negative for malignancy and L4 and R4 lymph nodes are negative for malignancy as well. At this point I do not think that rebiopsy is necessary at this time. These very well could be inflammatory nodules. They do warrant close follow-up there, therefore recommend a repeat CT scan in 3 months to assess these nodules given his high risk factors. 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 At this point in time patient does not require any further thoracic surgical intervention and may follow-up with us on a as needed basis. Thank you for referring the patient to us. Please do not hesitate to contact us should you have any questions or concerns in the future. Encounters Date Type Department Care Team Description 11/12/2024 11:30 AM EDT Office Visit Thoracic Surgery - [place] [address] [facility] [address] [place] [id number] Katt Eldridge PA Pulmonary nodules (Primary Dx) 11/03/2024 9:50 AM EDT Anesthesia Event [facility] Main OR [address] [place] [id number] Angel Bailey DO 11/03/2024 9:30 AM EDT - 11/03/2024 11:30 AM EDT Surgery [facility] Main OR [address] [place] [address] Bren Butler MD Navigation bronchoscopy/EBUS with biopsies [[id number] (CPT ) +5 more] 11/03/2024 9:12 AM EDT - 11/03/2024 1:46 PM EDT Hospital Encounter [facility] Main OR [address] [place] [address] Bern Butler MD Pulmonary nodules Discharge Disposition: Home or Self Care 11/03/2024 7:05 AM EDT - 11/03/2024 11:59 PM EDT Hospital Encounter [facility] Xray [address] [place] [address] Pain Discharge Disposition: Home or Self Care 11/02/2024 7:52 AM EDT - 11/02/2024 11:59 PM EDT Hospital Encounter [facility] CT Scan [address] [place] [address] Pulmonary nodules Discharge Disposition: Home or Self Care 10/30/2024 Telephone Pulmonology - [place] [address] [phone] Kika Olivo, RN 10/30/2024 Telephone Thoracic Surgery - [place] [address] [address] Betsy Izquierdo MA Procedure (Pre op , surgery , post op ) 10/26/2024 3:00 PM EDT Consult Thoracic Surgery - [place] [address] [address] Bren Butler MD Pulmonary nodules (Primary Dx) 10/19/2024 Nurse Triage Thoracic Surgery [facility] [address] [address] Kika Olivo, RN 09/30/2024 1:23 PM EDT - 09/30/2024 11:59 PM EDT Hospital Encounter [facility] PET Scan [address] [place] [address] Other disorders of lung Discharge Disposition: Home or Self Care from Last 3 Months Surgical History Surgery Date Site/Laterality Comments OTHER SURGICAL HISTORY CYST REMOVAL Bilateral back , postieor OTHER SURGICAL HISTORY 11/03/2024 Right Navigational Bronchoscopy Medical History Medical History Date Comments Hypertension COPD (chronic obstructive pu lmonary disease) ([facility] V24, [facility] V28) Anxiety Shortness of breath Interstitial pulmonary fibrosis ([facility] V24, [facility] /[facility] V28) 11/03/2024 RUL Organizing pneumonia ([facility] V24, [facility] V28) 11/03/2024 RUL Social History Tobacco Use Types Packs/Day Years Used Date Smoking Tobacco: Every Day Cigarettes Tobacco Cessation:Ready to Q uit: Not Asked; Counseling Given: Not Answered Alcohol Use Standard Drinks/Week Comments Not Currently 0 (1 standard drink = 0.6 oz pur e alcohol) Interpersonal Safety Answer Date Record ed Physical Abuse 11/03/2024 Verbal Abuse 11/03/2024 Sex and Gender Information Value Date Recorded Sex Assigned at Not on file Legal Sex Male 11:13 AM EDT Gender Identity Not on file Sexual Orientation Not on file Obstetrics History Last Filed Vital Signs Vital Sign Reading Time Taken Comments Blood Pressure 153/80 11/12/2024 11:26 AM EDT Pulse 89 11/12/2024 11:26 AM EDT Temperature 36.9 C (98.4 F) 11/12/2024 11:26 AM EDT Respiratory Rate 14 11/12/2024 11:26 AM EDT Oxygen Saturation 97% 11/12/2024 11:26 AM EDT Inhaled Oxygen Concentration - - Weight 61.7 kg (136 lb 1.6 oz) 11/12/2024 11:26 AM EDT Height 175.3 cm (5' 9 ) 11/12/2024 11:26 AM EDT Body Mass Index 20.1 11/12/2024 11:26 AM EDT Plan of Treatment Health Maintenance Due Date Last Done Comments DTaP,Tdap,and Td Vaccines (1 - Tdap) 1987 Hepatitis B Vaccines (1 of 3 - 19+ 3-dose series) 1987 Pneumococcal Vaccine: 50+ Ye ars (1 of 2 - PCV) 1987 Zoster Vaccines (1 of 2) 2018 COVID-19 Vaccine (1 - 2023-2 5 season) 2024 Cholesterol Screening (Lipid Panel) 09/29/2024 Colorectal Cancer Screening: Colonoscopy 09/29/2024 Depression Screening 09/29/2024 HIV Screening 09/29/2024 Hepatitis C Screening 09/29/2024 Social Influencers of Health Screening 09/29/2024 Influenza Vaccine (#1) 2025 HIB Vaccines Aged Out No longer [...] Procedure Name Priority Date/Time Associated Diagnosis Comments XR CHEST 1 VIEW STAT 11/03/2024 12:05 PM EDT OXYGEN THERAPY, ADULT Routine 11/03/2024 11:45 AM EDT XR CHEST 1 VIEW Routine 11/03/2024 10:58 AM EDT Pain ..CONCENTRATION Routine 11/03/2024 10:54 AM EDT Pulmonary nodules ACID FAST BACILLI STAIN Routine 11/03/2024 10:54 AM EDT Pulmonary nodules CULTURE BRONCHIAL WITH GRAM STAIN Routine 11/03/2024 10:54 AM EDT Pulmonary nodules CULTURE, AFB AND SMEAR WITH REFLEX TO IDENTIFICATION AND SUSCEPTIBILITY Routine 11/03/2024 10:54 AM EDT Pulmonary nodules CULTURE FUNGAL, OTHER Routine 11/03/2024 10:54 AM EDT Pulmonary nodules ..CONCENTRATION Routine 11/03/2024 10:37 AM EDT Pulmonary nodules ACID FAST BACILLI STAIN Routine 11/03/2024 10:37 AM EDT Pulmonary nodules CULTURE BRONCHIAL WITH GRAM STAIN Routine 11/03/2024 10:37 AM EDT Pulmonary nodules CULTURE, AFB AND SMEAR WITH REFLEX TO IDENTIFICATION AND SUSCEPTIBILITY Routine 11/03/2024 10:37 AM EDT Pulmonary nodules CULTURE FUNGAL, OTHER Routine 11/03/2024 10:37 AM EDT Pulmonary nodules NON-GYNECOLOGIC CYTOLOGY Routine 11/03/2024 10:31 AM EDT Pulmonary nodules TISSUE EXAM Routine 11/03/2024 10:29 AM EDT Pulmonary nodules FINE NEEDLE ASPIRATION Routine 11/03/2024 10:26 AM EDT Pulmonary nodules TH AN ENDOTRACHEAL(NO CHARGE) Routine 11/03/2024 10:09 AM EDT VT CORE NDL BX LNG/MED PERQ 11/03/2024 9:50 AM EDT Pulmonary nodules Case Notes C-arm, 23 hour bed,20 90 minute case per Vanessa via phone JT Special Needs 20 90 minute case per Vanessa via phone JT VT BRONCHOSCOPY INCL FLUORO GUIDANCE W BRONCHIAL/ENDOBRONCHI AL BX SGL/MULT 11/03/2024 9:50 AM EDT Pulmonary nodules Case Notes C-arm, 23 hour bed,20 90 minute case per Vanessa via phone JT Special Needs 20 90 minute case per Vanessa via phone JT VT BRONCHOSCOPY RIGID/FLEXIBLE W/TRANSBRONCHIAL LUNG BIOPSY(S) SINGLE LOBE 11/03/2024 9:50 AM EDT Pulmonary nodules Case Notes C-arm, 23 hour bed,10/30 90 minute case per Vanessa via phone JT Special Needs 20 90 minute case per Vanessa via phone JT VT BRONCHOSCOPY RIGID/FLEXIBLE COMPUTER ASSISTED IMAGE GUIDED NAVIGATION 11/03/2024 9:50 AM EDT Pulmonary nodules Case Notes C-arm, 23 hour bed,10/30 90 minute case per Vanessa via phone JT Special Needs 10/30 90 minute case per Vanessa via phone JT VT BRONCHOSCOPY INCL FLUOROSCOPIC GUID W EBUS DURING PERIPHERAL LESION 11/03/2024 9:50 AM EDT Pulmonary nodules Case Notes C-arm, 23 hour bed,10/30 90 minute case per Vanessa via phone JT Special Needs 10/30 90 minute case per Vanessa via phone JT VT BRONCHOSCOPY INCL FLUROSCOPIC GUIDANCE W PLCMNT FIDUCIAL MARKER SGL/MULT 11/03/2024 9:50 AM EDT Pulmonary nodules Case Notes C-arm, 23 hour bed,10/30 90 minute case per Vanessa via phone JT Special Needs 10/30 90 minute case per Vanessa via phone JT PROCEDURAL ECG Routine 11/02/2024 8:30 AM EDT Pulmonary nodules CBC WITH AUTO DIFFERENTIAL Routine 11/02/2024 8:12 AM EDT Pulmonary nodules BASIC METABOLIC PANEL Routine 11/02/2024 8:12 AM EDT Pulmonary nodules CBC AND DIFFERENTIAL Routine 11/02/2024 8:12 AM EDT Pulmonary nodules PROTHROMBIN TIME WITH INR Routine 11/02/2024 8:12 AM EDT Pulmonary nodules ACTIVATED PARTIAL THROMBOPLASTIN TIME Routine 11/02/2024 8:12 AM EDT Pulmonary nodules TYPE AND SCREEN Routine 11/02/2024 8:12 AM EDT Pulmonary nodules CT CHEST WO CONTRAST Routine 11/02/2024 8:05 AM EDT Pulmonary nodules PET CT SKULL TO MID THIGH INITIAL Routine 09/30/2024 3:00 PM EDT Other disorders of lung from Last 3 Months Results * XR Chest 1 View (11/03/2024 12:05 PM EDT) Only the most recent of2 resultswithin the time period is included. Anatomical Region Laterality Modality Body Radiographic Justyna ging 11/03/2024 12:0 8 PM EDT Impressions 11/03/2024 12:11 PM EDT Ill-defined alveolar densities in the mid lungs bilaterally, new since CT scan of the chest performed 11/02/2024, consistent with postoperative hemorrhage. Scarring is again seen in the right upper lobe. Code 67618 -------- FINAL REPORT -------- Dictated By: Louie Cote Dictated Date: 11/03/2024 12:08 ET Assigned Physician: Louie Cote Reviewed and Electronically Signed By: Louie Cote Signed Date: 11/03/2024 12:11 ET Workstation ID: [id number] Transcribed By: Self Edit Transcribed Date: 11/03/2024 12:08 ET Narrative 11/03/2024 12:11 PM EDT HISTORY: The patient is a 54-year-old male who underwent bilateral navigational bronchoscopic biopsy earlier today. Follow-up chest x-ray is now obtained. FINDINGS: Sitting AP portable radiograph of the chest is obtained. No previous chest radiograph is available for comparison and therefore this study is compared to the senior marketing engineer chest image obtained during CT scan of the chest performed 11/02/2024. The current study demonstrates normal appearance of the bony structures. The cardiac silhouette is within normal limits. The aortic knob is calcified. Linear scarring is again seen in the right upper lobe. Ill-defined alveolar densities have developed in the mid lungs bilaterally since the CT scan, likely representing postbiopsy hemorrhage. There is no pneumothorax. Procedure Note Louie Cote MD - 11/03/2024 HISTORY: The patient is a 54-year-old male who underwent bilateralnavigational bronchoscopic biopsy earlier today. Follow-up chest x-ray isnow obtained. FINDINGS: Sitting AP portable radiograph of the chest is obtained. Noprevious chest radiograph is available for comparison and therefore thisstudy is compared to the senior marketing engineer chest image obtained during CT scan of thechest performed 11/02/2024. The current study demonstrates normalappearance of the bony structures. The cardiac silhouette is within normallimits. The aortic knob is calcified. Linear scarring is again seen in theright upper lobe. Ill-defined alveolar densities have developed in the midlungs bilaterally since the CT scan, likely representing postbiopsyhemorrhage. There is no pneumothorax. IMPRESSION: Ill-defined alveolar densities in the mid lungs bilaterally, new since CTscan of the chest performed 11/02/2024, consistent with postoperativehemorrhage. Scarring is again seen in the right upper lobe. Code 07487 -------- FINAL REPORT -------- Dictated By: Louie Cote Dictated Date: 11/03/2024 12:08 ET Assigned Physician: Louie Cote Reviewed and Electronically Signed By: Louie Cote Signed Date: 11/03/2024 12:11 ET Workstation ID: [id number] Transcribed By: Self Edit Transcribed Date: 11/03/2024 12:08 ET us Bren Butler MD IMG XR PROCEDURES Final Result * Culture bronchial with gram stain (11/03/2024 10:54 AM EDT) Only the most recent of2 resultswithin the time period is included. Bronchial Culture No growth at 3 days 11/06/2024 1:15 PM EDT [facility] Gram Stain Result No polymorphonuclear leukocytes, No epithelial cells, and No organisms noted 11/06/2024 1:15 PM EDT [facility] Wash Structure of upper lobe of left lung / Unknown 11/03/2024 10:54 AM EDT 11/03/2024 11:39 AM EDT us Bren Butler MD LAB MICROBIOLOGY - GENERAL ORDER SAVANNA Final Result [facility] [address] [place] [address], [place] [phone] * Concentration (11/03/2024 10:54 AM EDT) Only the most recent of2 resultswithin the time period is included. AFB Concentration Performed 4:05 PM EDT [facility] Wash Structure of upper lobe of left lung / Unknown 11/03/2024 10:54 AM EDT 11/03/2024 11:39 AM EDT Narrative [facility] - 11/04/2024 4:05 PM EDT Performed at: 01 - [facility] [address] [id number] Medical Office Receptionist Assistant: Maira Oliver MD, Phone: [phone] us Brne Butler MD LAB BLOOD ORDERABLES Final Resul t [facility] * Acid fast bacilli stain (11/03/2024 10:54 AM EDT) Only the most recent of2 resultswithin the time period is included. AFB Stain Result No Acid fast bacilli seen on direct smear (Fuchsin method, 1000x) No Acid Fast Bacilli seen on direct smear 11/03/2024 5:07 PM EDT [facility] Wash Structure of upper lobe of left lung / Unknown 11/03/2024 10:54 AM EDT 11/03/2024 11:39 AM EDT us Bren Butler MD LAB MICROBIOLOGY - GENERAL ORDER SAVANNA Final Result Performing Organization Address [facility]/ZIP Co de Phone Number [facility] [address] [place] [address], * Non-gynecologic cytology (11/03/2024 10:31 AM EDT) Final Diagnosis A. Lung, Right Upper Lobe, Bronchial Brushing (ThinPrep, cell block): Negative for malignant cells. B. Lung, Right Upper Lobe, Bronchial Washing (ThinPrep, cell block): Negative for malignant cells. C. Lung, Left Upper Lobe, Bronchial Brushing(ThinPre p, cell block) : Negative for malignant cells. D. Lung, Left Upper Lobe, Bronchial Wash (ThinPrep, cell block): Negative for malignant cells. 11/[facility] Specimen A Adequacy Satisfactory for evaluation 11/05/2024 9:07 AM [facility] Specimen B Adequacy Satisfactory for evaluation 11/05/2024 9:07 AM [facility] Specimen C Adequacy Satisfactory for evaluation 11/05/2024 9:07 AM [facility] Specimen D Adequacy Satisfactory for evaluation 11/05/2024 9:07 AM [facility] Gross Description A. Lung, Right Upper Lobe, Bronchial Brushing: Received 30 ml cytolyt of pink cloudy fluid received with brush, 1 thin prep, 1 cell block Formalin fixation 7.5 put in formalin at 1330 B. Lung, Right Upper Lobe, Bronchial wash: Received 30 ml saline of red cloudy fluid 1 thin prep, 1 cell block Formalin fixation 7.5 put in formalin at 1330 C. Lung, Left Upper Lobe, Bronchial brushing: Received 30 ml cytolyt of pink cloudy fluid received with brush, 1 thin prep, 1 cell block Formalin fixation 7.5 put in formalin at 1330 D. Lung, Left Upper Lobe, Bronchial wash: Received 30 ml saline of red cloudy fluid 1 thin prep, 1 cell block Formalin fixation 7.5 put in formalin at 1330 11/05/2024 9:07 AM T [facility] Disclaimer Unless otherwise specified, all tissue is 10% NB formalin fixed and paraffin embedded. Technical cytopathology services provided by [facility], at [address] [place] [id number] (CLIA # [id number]/Eren Alfaro MD, Metal Fabricating Inspector.) 11/05/2024 9:07 AM [facility] Brushing Structure of upper lobe of right lung / Unknown 11/03/2024 10:31 AM EDT 11/03/2024 1:08 PM EDT Specimen obtained by lavage (specimen) Structure of upper lobe of right lung / Unknown 11/03/2024 10:32 AM EDT 11/03/2024 1:17 PM EDT Brushing, function (observable entity) Structure of upper lobe of left lung / Unknown 11/03/2024 10:49 AM EDT 11/03/2024 1:17 PM EDT Specimen obtained by lavage (specimen) Structure of upper lobe of left lung / Unknown 11/03/2024 10:52 AM EDT 11/03/2024 1:17 PM EDT us Bren Butler MD LAB CYTOLOGY ORDERABLES Final Re sult [facility] [address] [place] [address], [place] [phone] * Tissue exam (11/03/2024 10:29 AM EDT) Final Diagnosis A. Lung, Right Upper Lobe, Nodule - Cryo Biopsy: -THREE FRAGMENTS OF ALVEOLAR AND BRONCHIAL TISSUE WITH ORGANIZING PNEUMONIA AND INTERSTITIAL FIBROSIS -Negative for malignancy B. Lung, Left Upper Lobe, Nodule - Cryo Biopsy: -THREE FRAGMENTS OF PULMONARY ALVEOLAR TISSUE WITH RESPIRATORY BRONCHIOLITIS, MILD INTERSITITAL FIBROSIS, PATCHY LYMPHOCYTIC INFILTRATES AND FEW NON-CASEATING GRANULOMATA -Negative for malignancy -GMS and AFB stains negative for microorganisms (Controls appropriate) 3:58 PM EDT [facility] Gross Description A. Lung, Right Upper Lobe, Nodule - Cryo Biopsy: Labeled lung RUL, nodule . Received in formalin are three irregular friable bryan-white soft tissue fragments, ranging from 0.1 cm to 0.3 cm in greatest dimension, which are wrapped in paper and submitted in toto in two cassettes, one piece and two pieces, respectively, x 2 with six unstained slides between levels. B. Lung, Left Upper Lobe, Nodule - Cryo Biopsy: Labeled lung RONAK, nodule . Received in formalin is a 0.4 cm aggregate of irregular red-bryan soft tissue fragments and clotted blood which is wrapped in paper and submitted in toto in two cassettes, one piece and multiple pieces, respectively, x 2 with six unstained slides between levels. MEENA 06/26/202 5 3:58 PM EDT [facility] Disclaimer NOTE: The immunohistochemical tests and in situ hybridization tests were developed and their performance characteristics were determined by [facility]. They have not been cleared or approved by the U.S. Food and Drug Administration. The FDA has determined that such clearance or approval is not necessary. These tests are used for clinical purposes. They should not be regarded as investigational or for research. This laboratory is certified under the Clinical Laboratory Improvement Amendments of 1988 (CLIA) as qualified to perform high complexity clinical laboratory testing. (controls appropriate) Unless otherwise specified, all tissue is 10% NB formalin fixed and paraffin embedded. 3:58 PM EDT [facility] Tissue Structure of upper lobe of right lung / Unknown 11/03/2024 10:29 AM EDT 11/03/2024 11:41 AM EDT Tissue specimen (specimen) Structure of upper lobe of left lung / Unknown 11/03/2024 10:48 AM EDT 11/03/2024 11:41 AM EDT us Bren Butler MD LAB PATHOLOGY ORDERABLES Final R esult [facility] [address] [place] [address], * Fine needle aspiration (11/03/2024 10:26 AM EDT) Final Diagnosis A. Lung, Right Upper Lobe, Nodule -fine needle aspiration, (ThinPrep, cell block): Negative for malignant cells. B. Lung, Left Upper Lobe, Nodule -fine needle aspiration, (ThinPrep, cell block): Negative for malignant cells. C. Lymph Node, Right Paratracheal Lymph Node -fine needle aspiration, (ThinPrep, cell block): Negative for malignant cells. D. Lymph Node, Subcarinal Lymph Node -fine needle aspiration, (ThinPrep, cell block): Non-diagnostic. E. Lymph Node, Left Paratracheal Lymph Node -fine needle aspiration, (ThinPrep, cell block): Negative for malignant cells. 11/05/2024 9:09 AM [facility] Specimen A Adequacy Satisfactory for evaluation 11/05/2024 9:09 AM [facility] Specimen B Adequacy Satisfactory for evaluation 11/05/2024 9:09 AM [facility] Specimen C Adequacy Satisfactory for evaluation 11/05/2024 9:09 AM [facility] Specimen D Adequacy Unsatisfactory for evaluation 11/05/2024 9:09 AM [facility] Specimen E Adequacy Satisfactory for evaluation 11/05/2024 9:09 AM [facility] Gross Description A. Lung, Right Upper Lobe, Nodule: Recvied 30 ml of clear cytolyt fluid, 1 thin prep ,1 cell block Formalin fixation 10 put in formalin at 1100 B. Lung, Left Upper Lobe, Nodule: Recvied 30 ml of cloudy cytolyt fluid, 1 thin prep ,1 cell block Formalin fixation 10 put in formalin at 1100 C. Lymph Node, Right Paratracheal Lymph Node: Recvied 30 ml of orange cloudy cytolyt fluid, 1 thin prep ,1 cell block Formalin fixation 10 put in formalin at 1100 D. Lymph Node, Subcarinal Lymph Node: Recvied 30 ml of light pink cloudy cytolyt fluid, 1 thin prep ,1 cell block Formalin fixation 10 put in formalin at 1100 E. Lymph Node, Left Paratracheal Lymph Node: Recvied 30 ml of cloudy cytolyt fluid, 1 thin prep ,1 cell block Formalin fixation 10 put in formalin at 1100 11/05/2024 9:09 AM [facility] Disclaimer Unless otherwise specified, all tissue is 10% NB formalin fixed and paraffin embedded. Technical cytopathology services provided by [facility], at [address] [place] [id number] (CLIA # [id number]/Britta Alfaro MD, Metal Fabricating Inspector.) 11/05/2024 9:09 AM [facility] Fine Needle Aspirate Structure of upper lobe of right lung / Unknown 11/03/2024 10:26 AM EDT 11/04/2024 9:43 AM EDT Specimen obtained by fine needle aspiration procedure (specimen) Structure of upper lobe of left lung / Unknown 11/03/2024 10:38 AM EDT 11/04/2024 9:42 AM EDT Specimen obtained by fine needle aspiration procedure (specimen) Lymph node specimen / Unknown 11/03/2024 11:09 AM EDT 11/04/2024 10:08 AM EDT Specimen obtained by fine needle aspiration procedure (specimen) Lymph node specimen / Unknown 11/03/2024 11:15 AM EDT 11/04/2024 10:12 AM EDT Specimen obtained by fine needle aspiration procedure (specimen) Lymph node specimen / Unknown 11/03/2024 11:22 AM EDT 11/04/2024 9:52 AM EDT us Bren Butler MD LAB PATHOLOGY ORDERABLES Final R esult [facility] [address] [place] [address], * TH AN ENDOTRACHEAL(NO CHARGE) (11/03/2024 10:09 AM EDT) Guy Navarro CRNA - 11/03/2024 10:09 AM EDT Guy Spivey CRNA 11/03/2024 10:49 AM General Information and Staff Patient location during procedure: OR Resident/TOUR GUIDE: Guy Spivey CRNA Performed: resident/STEVE/CAA Performed by: Guy Spivey CRNA Authorized by: Angel Bailey DO Intubation Airway not difficult Urgency: elective Final Airway Details Successful airway: ETT Cuffed: yes Successful intubation technique: direct laryngoscopy Facilitating devices/methods: intubating stylet Endotracheal tube insertion site: oral Blade: Huy Blade size: #3 ETT size (mm): 8.5 Cormack-Lehane Classification: grade IIa - partial view of glottis Placement verified by: chest auscultation and capnometry Cuff volume (mL): 10 Measured from: lips ETT to lips (cm): 21 Number of attempts at approach: 1Final airway type: endotracheal airway Indications and Patient Condition Indications for airway management: anesthesia Spontaneous Ventilation: absent Sedation level: Yes Preoxygenated: yes Soft Tissue Damage: No Dentition Unchanged: Yes Patient position: sniffing MILS maintained throughout Mask difficulty assessment: 2 - vent by mask + OA or adjuvant +/- NMBA Angel Bailey DO ANESTHESIA ORDERABLES Edited Re sult - Final * ECG 12 lead - Procedural (No Charge) (11/02/2024 8:30 AM EDT) Ventricular Rate ECG 95 BPM GEMUSE Atrial Rate 95 BPM GEMUSE P-R Interval 134 ms GEMUSE QRS Duration 64 ms GEMUSE Q-T Interval 350 ms GEMUSE QTc 439 ms GEMUSE P Wave [place] 85 degrees GEMUSE R [place] 62 degrees GEMUSE T [place] 87 degrees GEMUSE ECG Interpretation Normal sinus rhythm Biatrial enlargement Septal infarct , age undetermined Abnormal ECG No previous ECGs available Confirmed by MICHEAL RAHMAN ([id number]) on 11/02/2024 2:23:31 PM GEMUSE 11/02/2024 8:30 AM EDT 11/02/2024 2:23 PM EDT Bren Butler MD ECG ORDERABLES Final Result GEMUSE * (ABNORMAL) CBC auto differential (11/02/2024 8:12 AM EDT) Pathologist [facility] [place] WBC 10.6 4.8 - 10.8 K/mcL LAB HEMETOLOGY METHOD 11/02/2024 9:23 AM EDT [facility] RBC 5.00 4.50 - 5.50 M/mcL LAB HEMETOLOGY METHOD 11/02/2024 9:23 AM EDT [facility] Hemoglobin 15.0 13.5 - 17.5 g/dL LAB HEMETOLOGY METHOD 11/02/2024 9:23 AM EDT [facility] Hematocrit 46.4 42.0 - 54.0 % LAB HEMETOLOGY METHOD 11/02/2024 9:23 AM [facility] MCV 92.4 79.0 - 98.0 FL LAB HEMETOLOGY METHOD 11/02/2024 9:23 AM [facility] MCH 29.9 27.0 - 32.0 pcg LAB HEMETOLOGY METHOD 11/02/2024 9:23 AM [facility] MCHC 32.3 32.0 - 37.0 g/dL LAB HEMETOLOGY METHOD 11/02/2024 9:23 AM [facility] RDW 13.6 11.0 - 15.0 % LAB HEMETOLOGY METHOD 11/02/2024 9:23 AM [facility] Platelets 321 130 - 400 K/mcL LAB HEMETOLOGY METHOD 11/02/2024 9:23 AM [facility] MPV 10.1 7.0 - 11.0 FL LAB HEMETOLOGY METHOD 11/02/2024 9:23 AM [facility] NRBC 0.0 <1.0 % LAB HEMETOLOGY METHOD 11/02/2024 9:23 AM [facility] NRBC Absolute 0.00 <0.10 K/mcL LAB HEMETOLOGY METHOD 11/02/2024 9:23 AM [facility] Neutrophils Relative 71.7 % LAB HEMETOLOGY METHOD 11/02/2024 9:23 AM [facility] Lymphocytes Relative 17.5 % LAB HEMETOLOGY METHOD 11/02/2024 9:23 AM [facility] Monocytes Relative 7.0 % LAB HEMETOLOGY METHOD 11/02/2024 9:23 AM [facility] Eosinophils Relative 2.8 % LAB HEMETOLOGY METHOD 11/02/2024 9:23 AM [facility] Basophils Relative 0.7 % LAB HEMETOLOGY METHOD 11/02/2024 9:23 AM EDT [facility] Immature Granulocytes Relative 0.3 % LAB HEMETOLOGY METHOD 11/02/2024 9:23 AM EDT [facility] Neutrophils Absolute 7.56(H) 1.50 - 7.00 K/mcL LAB HEMETOLOGY METHOD 11/02/2024 9:23 AM EDT [facility] Lymphocytes Absolute 1.85 1.00 - 5.00 K/mcL LAB HEMETOLOGY METHOD 11/02/2024 9:23 AM EDT [facility] Monocytes Absolute 0.74 0.20 - 1.00 K/mcL LAB HEMETOLOGY METHOD 11/02/2024 9:23 AM EDT [facility] Eosinophils Absolute 0.30 0.00 - 0.50 K/mcL LAB HEMETOLOGY METHOD 11/02/2024 9:23 AM EDT [facility] Basophils Absolute 0.07 0.00 - 0.20 K/mcL LAB HEMETOLOGY METHOD 11/02/2024 9:23 AM EDT [facility] Immature Granulocytes Absolute 0.03 0.00 - 0.03 K/mcL LAB HEMETOLOGY METHOD 11/02/2024 9:23 AM EDT [facility] Blood Venous blood specimen / Unknown Venipuncture / Unknown 11/02/2024 8:12 AM EDT 11/02/2024 9:17 AM EDT us Bren Butler MD LAB BLOOD ORDERABLES Final Resul t [facility] [address] [place] [address], * Activated partial thromboplastin time (11/02/2024 8:12 AM EDT) aPTT 35.5 24.1 - 39.3 sec LAB COAGULATION METHOD 11/02/2024 9:43 AM EDT [facility] Blood Venous blood specimen / Unknown Venipuncture / Unknown 11/02/2024 8:12 AM EDT 11/02/2024 9:17 AM EDT us Bren Butler MD LAB BLOOD ORDERABLES Final Resul t Performing Organization Address City/[facility]/ZIP Co de Phone Number [facility] [address] [place] [address], [place] [phone] * Prothrombin time with INR (11/02/2024 8:12 AM EDT) Protime 10.6 10.6 - 13.9 sec LAB COAGULATION METHOD 11/02/2024 9:43 AM EDT [facility] INR 0.8 LAB COAGULATION METHOD 11/02/2024 9:43 AM EDT [facility] Blood Venous blood specimen / Unknown Venipuncture / Unknown 11/02/2024 8:12 AM EDT 11/02/2024 9:17 AM EDT us Bren Butler MD LAB BLOOD ORDERABLES Final Resul t Performing Organization Address [facility] de Phone Number [facility] [address] [place] [address], [place] [phone] * Type and screen (11/02/2024 8:12 AM EDT) ABO Group O 11/02/2024 11:41 AM EDT [facility] Rh Type Positive 11/02/2024 11:41 AM EDT [facility] Antibody Screen Negative 11/02/2024 11:41 AM EDT [facility] Blood Venous blood specimen / Unknown Venipuncture / Unknown 11/02/2024 8:12 AM EDT 11/02/2024 9:17 AM EDT us Bren Butler MD LAB BLOOD BANK TEST ORDERABLES F inal Result [facility] [address] [place] [address], [place] [phone] * Basic metabolic panel (11/02/2024 8:12 AM EDT) Sodium 141 133 - 145 mmol/L LAB CHEMISTRY METHOD 11/02/2024 9:44 AM [facility] Potassium 4.7 3.5 - 5.5 mmol/L LAB CHEMISTRY METHOD 11/02/2024 9:44 AM [facility] Chloride 106 96 - 110 mmol/L LAB CHEMISTRY METHOD 11/02/2024 9:44 AM [facility] CO2 31 21 - 32 mmol/L LAB CHEMISTRY METHOD 11/02/2024 9:44 AM [facility] Anion Gap 4 3 - 11 LAB CHEMISTRY METHOD 11/02/2024 9:44 AM [facility] Glucose 93 70 - 100 mg/dL LAB CHEMISTRY METHOD 11/02/2024 9:44 AM [facility] BUN 8 5 - 25 mg/dL LAB CHEMISTRY METHOD 11/02/2024 9:44 AM [facility] Creatinine 0.76 0.70 - 1.30 mg/dL LAB CHEMISTRY METHOD 11/02/2024 9:44 AM [facility] eGFR 105 >=60 mL/min/1. 73m2 LAB CHEMISTRY METHOD 11/02/2024 9:44 AM [facility] Comment:Calculation based on the Chronic Kidney Disease Epidemiology Collaboration (CKD-EPI) equation refit without adjustment for race. BUN/Creatinine Ratio 10.5 LAB CHEMISTRY METHOD 11/02/2024 9:44 AM [facility] Calcium 9.9 8.5 - 10.5 mg/dL LAB CHEMISTRY METHOD 11/02/2024 9:44 AM EDT [facility] Blood Venous blood specimen / Unknown Venipuncture / Unknown 11/02/2024 8:12 AM EDT 11/02/2024 9:17 AM EDT us Bren Butler MD LAB BLOOD ORDERABLES Final Resul t [facility]) [facility] [address] [place] [address], [place] [phone] * CT Chest wo Contrast (11/02/2024 8:05 AM EDT) Anatomical Region Laterality Modality Body Computed Tomogra phy 11/03/2024 8:51 AM EDT Impressions 11/03/2024 9:24 AM EDT Impression: 1. Multiple waxing and waning bilateral lung nodules, as described. The dominant nodules in both upper lobes and in the left lower lobe have improved since the previous studies, suggesting a benign, infectious/inflammatory process. Continued follow-up is recommended 2. No developing thoracic lymphadenopathy. [place] ([id number]) -------- FINAL REPORT -------- Dictated By: Damaris Garcia Dictated Date: 11/03/2024 08:51 ET Assigned Physician: Damaris Garcia Reviewed and Electronically Signed By: Damaris Garcia Signed Date: 11/03/2024 09:24 ET Workstation ID: [id number] Transcribed By: Self Edit Transcribed Date: 11/03/2024 08:51 ET Narrative 11/03/2024 9:24 AM EDT History: Lung nodule greater than 8 mm. Comparison: 09/17/24, 06/30/24 outside studies; PET/CT 09/30/24 ([facility]) Technique: Helical volumetric imaging of the thorax was performed without IV contrast. DLP: 214.46 mGy/cm REAL SAMURAIer Iterative reconstruction technique Findings: The trachea and central bronchial tree remain patent. Diffuse bronchial wall thickening is again seen, consistent with bronchitis. There are scattered foci of peripheral mucous plugging. 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 Multiple solid, noncalcified pulmonary nodules are again seen. The dominant nodules include a 16 x 11 mm peripheral right upper lobe nodule (image 94 series 3) which has decreased in size from 20 x 14 mm on 09/17/24, and a 12 x 19 mm peripheral left upper lobe nodule (image 102), which has decreased in size from 20 x 14 mm on 09/17/24. (A 7 mm nodule adjacent to the right upper lobe dominant nodule is unchanged from 09/17/24, new from 06/30/24.) There has also been a decrease in size of an additional left upper lobe peripheral nodule which now measures approximately 5 mm compared to 14 x 10 mm on 09/17/24 (image 85). All of these nodules are new from 06/30/24. A part solid airspace opacity is seen in the periphery of the left lower lobe (images 166 through 175 series 3). This lesion measures approximately 30 x 18 mm in maximum axial dimensions, with an approximately 8 mm solid component and has decreased in density since the PET/CT. It is larger than was present on 09/17/24 and is new from 06/30/24. The overall decrease in density since the PET/CT suggests a benign, infectious/inflammatory process. A 7 mm solid, noncalcified nodule in the superior segment of the left lower lobe (image 128) has increased in size from 4 mm on 09/17/24, new from 06/30/24. A 5 mm solid, noncalcified juxtafissural nodule in the right middle lobe (image 165) has increased in size and density since 09/17/24, new from 06/30/24. A new solid, noncalcified nodule with lobulated margins is seen in the right upper lobe periphery, measuring 9 x 7 mm (image 135 series 3). A new 6 mm solid nodule is seen in the right middle lobe (image 161). New peripheral airspace opacities are seen in the left upper lobe, including a 15 x 8 mm nodular opacity (image 76), an irregular juxtapleural opacity in the apex which has a linear configuration (image 45), and an 8 mm airspace opacity (image 97). Stable findings include a 9 x 4 mm solid, noncalcified nodule with irregular margins at the right lung apex (image 73 series 3), a 5 mm left upper lobe nodule (image 66), a 5 mm left upper lobe nodule (image 95), a 3 mm lingular nodule (image 181), and a 3 mm lingular nodule (image 209). No pleural or pericardial effusions are seen. The heart remains normal in size. Atherosclerotic calcification of the thoracic aorta and coronary arteries is again seen. Subcentimeter mediastinal lymph nodes are without significant change. No developing thoracic lymphadenopathy is noted. A 12 mm circumscribed round lesion in the subcutaneous fat of the right axilla most likely represents a skin lesion such as an epidermal inclusion cyst. This is also visible previously. A small portion of the upper abdomen included on the lowest images through the thorax is without significant abnormality. The regional skeleton is intact. Procedure Note Damaris Garcia MD - 11/03/2024 History: Lung nodule greater than 8 mm. Comparison: 09/17/24, 06/30/24 outside studies; PET/CT 09/30/24 ([facility]) Technique: Helical volumetric imaging of the thorax was performed withoutIV contrast. DLP: 214.46 mGy/cm REAL SAMURAIer Iterative reconstruction technique Findings: The trachea and central bronchial tree remain patent. Diffuse bronchialwall thickening is again seen, consistent with bronchitis. There arescattered foci of peripheral mucous plugging. The lungs remainhyperinflated and there is severe emphysematous destruction of thepulmonary parenchyma bilaterally. Multiple solid, noncalcified pulmonary nodules are again seen. Thedominant nodules include a 16 x 11 mm peripheral right upper lobe nodule(image 94 series 3) which has decreased in size from 20 x 14 mm on 09/17/24,and a 12 x 19 mm peripheral left upper lobe nodule (image 102), which hasdecreased in size from 20 x 14 mm on 09/17/24. (A 7 mm nodule adjacent tothe right upper lobe dominant nodule is unchanged from 09/17/24, new from06/30/24.) There has also been a decrease in size of an additional leftupper lobe peripheral nodule which now measures approximately 5 mmcompared to 14 x 10 mm on 09/17/24 (image 85). All of these nodules are newfrom 06/30/24. A part solid airspace opacity is seen in the periphery of the left lowerlobe (images 166 through 175 series 3). This lesion measures [id number] x 18 mm in maximum axial dimensions, with an approximately 8 mm solidcomponent and has decreased in density since the PET/CT. It is larger thanwas present on 09/17/24 and is new from 06/30/24. The overall decrease indensity since the PET/CT suggests a benign, infectious/inflammatoryprocess. A 7 mm solid, noncalcified nodule in the superior segment of theleft lower lobe (image 128) has increased in size from 4 mm on 09/17/24, newfrom 06/30/24. A 5 mm solid, noncalcified juxtafissural nodule in the rightmiddle lobe (image 165) has increased in size and density since 09/17/24,new from 06/30/24. A new solid, noncalcified nodule with lobulated margins is seen in theright upper lobe periphery, measuring 9 x 7 mm (image 135 series 3). A new6 mm solid nodule is seen in the right middle lobe (image 161). Newperipheral airspace opacities are seen in the left upper lobe, including a15 x 8 mm nodular opacity (image 76), an irregular juxtapleural opacity inthe apex which has a linear configuration (image 45), and an 8 mm airspaceopacity (image 97). Stable findings include a 9 x 4 mm solid, noncalcified nodule withirregular margins at the right lung apex (image 73 series 3), a 5 mm leftupper lobe nodule (image 66), a 5 mm left upper lobe nodule (image 95), a3 mm lingular nodule (image 181), and a 3 mm lingular nodule (image 209). No pleural or pericardial effusions are seen. The heart remains normal in size. Atherosclerotic calcification of thethoracic aorta and coronary arteries is again seen. Subcentimetermediastinal lymph nodes are without significant change. No developingthoracic lymphadenopathy is noted. A 12 mm circumscribed round lesion in the subcutaneous fat of the rightaxilla most likely represents a skin lesion such as an epidermal inclusioncyst. This is also visible previously. A small portion of the upper abdomen included on the lowest images throughthe thorax is without significant abnormality. The regional skeleton is intact. IMPRESSION: Impression: 1. Multiple waxing and waning bilateral lung nodules, as described. Thedominant nodules in both upper lobes and in the left lower lobe haveimproved since the previous studies, suggesting a benign,infectious/inflammatory process. Continued follow-up is recommended 2. No developing thoracic lymphadenopathy. [place] ([id number]) -------- FINAL REPORT -------- Dictated By: Damaris Garcia Dictated Date: 11/03/2024 08:51 ET Assigned Physician: Damaris Garcia Reviewed and Electronically Signed By: Damaris Garcia Signed Date: 11/03/2024 09:24 ET Workstation ID: [id number] Transcribed By: Self Edit Transcribed Date: 11/03/2024 08:51 ET us Bren Butler MD IMG CT PROCEDURES Final Result * PET CT Skull to Mid Thigh Initial (09/30/2024 3:00 PM EDT) Anatomical Region Laterality Modality Body Radiographic Justyna ging 10/06/2024 10:2 4 AM EDT Impressions 10/06/2024 10:36 AM EDT 1. Nonspecific multifocal bilateral nodules/opacities in both lungs demonstrating variable FDG activity; some of which may represent postinfectious/postinflammatory process. Underlying malignancy especially in the upper lobe nodules is also a possibility. 2. Mild left hilar activity slightly increased from mediastinal blood pool; either reactive or malignant in etiology. 3. Nonspecific FDG activity within the esophagus and stomach. Correlation with endoscopy is suggested. 4. Asymmetric activity in the right prostate gland. Correlation with prostate-specific antigen values is suggested. Please note: The CT was acquired at a low radiation dose settings. The images are of nondiagnostic quality and used solely for purposes of attenuation correction and slice localization for the PET scan. If a diagnostic CT study is desired it must be ordered separately. -------- FINAL REPORT -------- Dictated By: Eloisa Stevenson Dictated Date: 10/06/2024 10:24 ET Assigned Physician: Eloisa Stevenson Reviewed and Electronically Signed By: Eloisa Stevenson Signed Date: 10/06/2024 10:36 ET Workstation ID: [id number] Transcribed By: Self Edit Transcribed Date: 10/06/2024 [...] in both lungs demonstrating variable FDG activity. For example, nonspecific FDG activity in the right upper lobe SUV max 2.3. 9 mm nodule left upper lobe SUV max 2.6. 16 x 13 mm nodule in the right upper lobe SUV max 4.4. 11 x 16 mm nodule in the left upper lobe SUV max 4.4. New 2.4 x 1.3 cm opacity/nodule in the superior segment of the left lower lobe SUV max 4.9. Nonspecific opacities in the lower lobes SUV max [...] the right prostate gland SUV max 3.2. Nonspecific bowel activity. MUSCULOSKELETAL: No abnormal FDG activity. [...] Signed Date: 10/06/2024 10:36 ET Workstation ID: [id number] Transcribed By: Self Edit Transcribed Date: 10/06/2024 10:24 ET us Thomas Orantes MD IMG NM PROCEDURES Final Result from Last 3 Months Additional Health Concerns Infection Onset Date Last Indicated Tuberculosis Rule-Out 11/03/2024 11/03/2024 Insurance [facility] Advance Directives * Full Code - Default (Latest Code Status on File) Date Activated Date Inactivated Comments 11/03/2024 9:18 AM 11/03/2024 4:06 PM This is orde r is used when code status has not been discussed with the patient, or code status is otherwise unknown/unconfirmed To update the patient's code status, place a code status order. Do not modify or discontinue any currently active code status orders. Care Teams Supply Technician Relationship Specialty Start Date End Date Homero Livingston MD [address] [place] [address] Dr Xavier RI PCP - General Family Medicine 10/26/24
== END 2024-11-23 11:23 | disposition home or self-care (01) ==
LOC: HO.HPS 10:52
PROVIDERS: PCP Family Medicine; Visit Provider Nurse Practitioner Family
DX: J84.89 Other specified interstitial pulmonary diseases (principal); J44.9 Chronic obstructive pulmonary disease, unspecified; F17.200 Nicotine dependence, unspecified, uncomplicated; R91.8 Other nonspecific abnormal finding of lung field
CPT/HCPCS: 99214; G2211

== ENCOUNTER → 2024-11-23 10:51 | Outpatient (BNVA) | payer OTHER, SELFPAY | PROVIDERS: PCP Family Medicine; Visit Provider Nurse Practitioner Family | DX: R06.02 Shortness of breath (principal); J84.89 Other specified interstitial pulmonary diseases; J44.9 Chronic obstructive pulmonary disease, unspecified; F17.200 Nicotine dependence, unspecified, uncomplicated; R91.8 Other nonspecific abnormal finding of lung field | CPT/HCPCS: 99212 ==

== ENCOUNTER 2025-01-07 10:12 | Outpatient (AMB) | payer OTHER, SELFPAY ==
--- NOTE | 2025-01-07 10:16 | A.OFFPC_ITS ---
Vital Signs 01/07/25 10:22 Height 5 ft 9 in Weight 141 lb 8 oz BMI 20.9 BP 135/80 Blood Pressure Location Rt brachial Position Sitting Respiration 16 Pulse 103 H Pulse Source Pulse Oximeter Temp 97.9 F Temp Source Oral Pulse Oximetry (%) 97 Oxygen Delivery Method Room Air Intake Visit Reasons: endoscopy referral Intake Note: patient here for Endoscopy referral. Front Counter Clerk Required: No Allergies No Known Allergies (No Known Allergies*) Allergy (Verified 01/07/25 10:21) Medication List - Last Reconciled 01/07/25 by Homero Livingston MD albuterol sulfate 90 mcg/actuation 2 puffs inhalation Q4-6H PRN albuterol sulfate 2.5 mg (3 mL) inhalation Q4-6H PRN 30 days clonidine HCl 0.1 mg PO TID diltiazem HCl ER 60 mg PO BID 90 days iaodqilyfda-xlffbgiof-lmyuucjw 200-62.5-25 mcg (Trelegy Ellipta) 1 inh inhalation DAILY hydroxyzine HCl 25 mg PO QID ipratropium-albuterol 0.5 mg-3 mg(2.5 mg base)/3 mL 3 mL inhalation Q6-8H PRN 30 days nicotine (polacrilex) (Nicorette) 4 mg buccal Q2H prednisone 40 mg (2 x 20 mg) PO DAILY prednisone 10 mg PO DIRECTED trazodone 100 mg PO BEDTIME PRN Tobacco use date assessed: 01/07/25 Dental Screening Dental Screen Date: 01/07/25 Did you have a dental visit in the last 12 months?: No Did you have a dental problem in the last 6 months where you did not have access to dental care?: No Was dental information given to patient?: No HPI endoscopy referral HPI Details Patient with history of COPD and pulmonary nodules, as well as recent pneumonia presents to discuss esophagitis. Had recent biopsies bronchoscopy due to pulmonary nodules. PET scan had shown uptake but biopsies Negative for malignancy and consistent with organizing pneumonia. He has been antibiotics and prednisone. Reading is improving. Patient says that while he was at [facility] they had told him he had esophagitis would need an endoscopy. He is here for referral. [facility], [facility] Medical History (Updated 01/07/25 @ 10:59 by Homero Livingston MD) Fracture of fifth metacarpal bone of right hand Broken collarbone Broken leg Alcohol use Hypertension COPD (chronic obstructive pulmonary disease) Surgical History (Updated 10/02/23 @ 14:32 by Lolly Hernandez CMA) H/O removal of neck cyst Family History (Updated 10/02/23 @ 14:34 by Lolly Hernandez CMA) Father Substance abuse Paternal Grandfather Substance abuse Mother Mental health disorder Social History Housing: House Patient Tobacco Use Status: Former Tobacco user Cigarettes Per Day: 4 e-Cigarette/Vaping Use: Never Used Second Hand Smoke Exposure: No service: No Current occupational status: unemployed Current occupational exposures/hazards: No Cognitive needs: No Hearing needs: No Vision needs: No Questionnaire Thrive Questionnaire Date Thrive assessed: 07/29/24 I am a: Patient What is your living situation today?: I choose not to answer this question Within the past 12 months, did the food you bought not last and you didn't have the money to get more?: Never true Within the past 12 months, did you worry whether your food would run out before you got money to buy more?: Never true Do you have trouble paying for medicines?: No Do you have trouble getting transportation to medical appointments?: Yes Do you have trouble paying your heating and electricity bill?: No Do you have trouble taking care of your child, family member or friend?: No Do you have trouble with day-to-day activities such as bathing, preparing meals, shopping, managing finances, etc.?: No Are you currently unemployed and looking for a job?: I choose not to answer this question Are you interested in more education?: Yes Please select the resources that you would like help with: Education Currently or been in a relationship where the following occur: No concerns reported THRIVE Score: 1 TAMMY-7 AMB Questionnaire TAMMY-7 Date TAMMY - 7 assessed: 04/14/24 Source: Developed by Drs. Yusuf Damon, Lizzeth Rouse, Mick Guallpa and colleagues, with an educational lorelei from [employer]. Review of Systems Const Denies chills, Denies fatigue, Denies fever(s), Denies headache(s) and Denies weakness ENT Denies dizziness and Denies headache(s) Card Denies chest pain, Denies lightheadedness and Denies other (Palpitations) Resp Details: Breathing is Improving Denies cough, Reports wheezing and Denies other ( shortness of breath) GI Details: Patient denies significant reflux or epigastric pain at this time. Musc Denies numbness and Denies tingling Neuro Denies dizziness, Denies headache(s), Denies numbness, Denies tingling, Denies paresthesias and Denies weakness Psych Denies anxiety and Denies depression Endo Denies fatigue Aller/Immun Reports wheezing Physical exam (Primary Care) Vital Signs: Last Vital Signs Temp 97.9 F 01/07/25 10:22 Pulse 103 H 01/07/25 10:22 Resp 16 01/07/25 10:22 BP 135/80 01/07/25 10:22 Pulse Ox 97 01/07/25 10:22 Oxygen Delivery Method Room Air 01/07/25 10:22 BMI result Body Mass Index 20.9 Tobacco/Smoking Status: Tobacco use Status Tobacco use date assessed 01/07/25 01/07/25 10:25 Patient Tobacco Use Status Former Tobacco user 01/07/25 10:17 e-Cigarette/Vaping Use Never Used 01/07/25 10:17 Thrive Assessment: Date of Thrive Assessment Date Thrive assessed 07/29/24 01/07/25 10:17 Currently or been in a relationship where the following occur: No concerns reported Const General: no acute distress and well developed Nutritional Appearance: well nourished Orientation/consciousness: patient oriented x3 HENMT Head: Yes normocephalic and Yes atraumatic Eyes General: appearance normal, both eyes and all related structures Pupils: Equal, round and reactive pupils present EOM: EOMs intact bilaterally Resp Other: Mild diffuse wheezing on auscultation Effort & Inspection: normal respiratory effort Cardio Rate: regular rate Rhythm: regular rhythm Heart sounds: S1 normal heart sound present, S2 normal heart sound present, no gallops, no murmurs and no rubs Neuro General: patient oriented x3 and gait normal Cranial nerves: Yes Equal, round and reactive pupils present Psych Affect: normal affect Coding Level of Care Code Est Pt Level 3 (64340) Diagnoses Esophagitis K20.90 Assessment & Plan Assessment & Plan (1) Esophagitis: Code(s): K20.90 - Esophagitis, unspecified without bleeding Category: Medical Plan: Will hold off on PPI as Currently he has no significant symptoms. Referred to [facility] gastro[facility]ology Orders: Referrals Gastroenterology Referral K20.90 - Esophagitis, unspecified without bleeding
[2025-01-07 10:22] VITALS: BP 135/80; PULSE 103; RESP 16; TEMP 36.6; O2SAT 97; BMI 20.9
--- OUTSIDE RECORDS SUMMARY | 2025-01-07 11:30 | XMS_ITS | Clinical Summary ---
Author Organization [facility] Address [address] [place] [address] Phone Care Team Providers Care Window Repairer Name Role Phone Homero Livingston MD Primary Care Provider [phone] Allergies No known active allergies Medications cloNIDine (CATAPRES) 0.1 mg tablet Take 1 tablet (0.1 mg total) by mouth at bedtime. 10/21/2024 Active Trelegy Ellipta 200-62.5-25 mcg inhaler Inhale 1 puff (200 mcg total) by mouth 1 (one) time each day. 10/04/2024 Active traZODone (DESYREL) 50 mg tablet Take 1 tablet (50 mg total) by mouth at bedtime. 10/04/2024 Active dilTIAZem SR (CARDIZEM SR) 60 mg 12 hr capsule 1 capsule (60 mg total) 2 (two) times a day. 10/13/2024 Active hydrOXYzine HCL (ATARAX) 25 mg tabletIndicatio ns:pruritus of skin Take 2 tablets (50 mg total) by mouth 4 (four) times a day if needed for itching. Active Active Problems Problem Noted Date Diagnosed Date Pulmonary nodules 10/26/2024 Assessment & Plan (11/12/2024 11:45 AM EDT): Mr. 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 At this point in time patient does [...] AM EDT Office Visit Thoracic Surgery - [address] [phone] Katt Eldridge PA Pulmonary nodules (Primary Dx) 11/03/2024 9:50 AM EDT Anesthesia Event [facility] OR [address] [place] [phone] Angel Bailey DO 11/03/2024 9:30 AM EDT - 11/03/2024 11:30 AM EDT Surgery [facility] OR [address] [place] [phone] Bren Butler MD Navigation bronchoscopy/EBUS with biopsies [68784 (CPT ) +5 more] 11/03/2024 9:12 AM EDT - 11/03/2024 1:46 PM EDT Hospital Encounter [facility] OR [address] [place] [phone] Bren Butler MD Pulmonary nodules Discharge Disposition: Home or Self Care 11/03/2024 7:05 AM EDT - 11/03/2024 11:59 PM EDT Hospital Encounter [facility] Xray [address] [place] [phone] Pain Discharge Disposition: Home or Self Care 11/02/2024 7:52 AM EDT - 11/02/2024 11:59 PM EDT Hospital Encounter [facility] CT Scan [address] [place] [phone] Pulmonary nodules Discharge Disposition: Home or Self Care 10/30/2024 Telephone Pulmonology - [place] [address] [phone] Kika Olivo, RN 10/30/2024 Telephone Thoracic Surgery - [place] [address] [phone] Betsy Izquierdo [place] 10/26/2024 3:00 PM EDT Consult Thoracic Surgery - [place] [address] [phone] Bren Butler MD Pulmonary nodules (Primary Dx) 10/19/2024 Nurse Triage Thoracic Surgery [address] [phone] Kika Olivo, RN from Last 3 Months Surgical History Surgery Date Site/Laterality Comments OTHER SURGICAL HISTORY CYST REMOVAL Bilateral back , postieor OTHER SURGICAL HISTORY 11/03/2024 Right Navigational Bronchoscopy Medical History Medical History Date Comments Hypertension COPD (chronic obstructive pu lmonary disease) [place] [place]24, [facility] V28) Anxiety Shortness of breath Interstitial pulmonary fibrosis ([facility] V24, [facility] V28) 11/03/2024 RUL Organizing pneumonia ([facility] [place], [facility] V28) 11/03/2024 RUL Social History Tobacco Use [...] Vaccine ( - 2023-2 5 season) 2024 Depression Screening 05/13/2024 Cholesterol Screening (Lipid Panel) 09/29/2024 Colorectal Cancer Screening: Colonoscopy 09/29/2024 HIV Screening 09/29/2024 Hepatitis C Screening [...] ENDOTRACHEAL(NO CHARGE) Routine 11/03/2024 10:09 AM EDT [place] CORE NDL BX LNG/MED PERQ 11/03/2024 9:50 AM EDT Pulmonary nodules Case Notes C-arm, 23 hour bed,10/30 90 minute case per Vanessa via phone JT Special Needs 10/30 90 minute case per Vanessa via phone JT [place] BRONCHOSCOPY INCL FLUORO GUIDANCE W BRONCHIAL/ENDOBRONCHI AL BX SGL/MULT 11/03/2024 9:50 AM EDT Pulmonary nodules Case Notes C-arm, 23 hour bed,10/30 90 minute case per Vanessa via phone JT Special Needs 10/30 90 minute case per Vanessa via phone JT [place] BRONCHOSCOPY RIGID/FLEXIBLE W/TRANSBRONCHIAL LUNG BIOPSY(S) SINGLE LOBE 11/03/2024 9:50 AM EDT Pulmonary nodules Case Notes C-arm, 23 hour bed,10/30 90 minute case per Vanessa via phone JT Special Needs 10/30 90 minute case per Vanessa via phone JT [place] BRONCHOSCOPY RIGID/FLEXIBLE COMPUTER ASSISTED IMAGE GUIDED NAVIGATION 11/03/2024 9:50 AM EDT Pulmonary nodules Case Notes C-arm, 23 hour bed,10/30 90 minute case per Vanessa via phone JT Special Needs 20 90 minute case per Vanessa via phone JT [place] BRONCHOSCOPY INCL FLUOROSCOPIC GUID W EBUS DURING PERIPHERAL LESION 11/03/2024 9:50 AM EDT Pulmonary nodules Case Notes C-arm, 23 hour bed,10/30 90 minute case per Vanessa via phone JT Special Needs 10/30 90 minute case per Vanessa via phone JT [place] BRONCHOSCOPY INCL FLUROSCOPIC GUIDANCE W PLCMNT FIDUCIAL [...] Routine 11/02/2024 8:05 AM EDT Pulmonary nodules from Last 3 Months Results * XR [...] seen in the right upper lobe. Code 41851 -------- FINAL REPORT -------- Dictated By: Louie Cote Dictated Date: 11/03/2024 12:08 ET Assigned Physician: Louie Cote Reviewed and Electronically Signed By: Louie Cote Signed Date: 11/03/2024 12:11 ET Workstation ID: [id number] Transcribed By: Self Edit Transcribed Date: 11/03/2024 12:08 ET Narrative 11/03/2024 12:11 PM EDT HISTORY: The patient is a 54-year-old male who underwent bilateral navigational bronchoscopic biopsy earlier today. Follow-up chest x-ray is now obtained. FINDINGS: Sitting AP portable radiograph of the chest is obtained. No previous chest radiograph is available for comparison and therefore this study is compared to the auto crane driver chest image obtained during CT scan of [...] and therefore thisstudy is compared to the auto crane driver chest image obtained during CT scan of [...] seen in the right upper lobe. Code 79904 -------- FINAL REPORT -------- Dictated By: Louie Cote Dictated Date: 11/03/2024 12:08 ET Assigned Physician: Louie Cote Reviewed and Electronically Signed By: Louie Cote Signed Date: 11/03/2024 12:11 ET Workstation ID: [id number] Transcribed By: Self Edit Transcribed Date: 11/03/2024 12:08 ET us Bren Butler MD IMG XR PROCEDURES Final Result * Culture bronchial with gram stain (11/03/2024 10:54 AM EDT) Only the most recent of2 resultswithin the time period is included. Bronchial Culture No growth at 3 days 11/06/2024 1:15 PM EDT [facility] Gram Stain Result No polymorphonuclear leukocytes, No epithelial cells, and No organisms noted 11/06/2024 1:15 PM EDT [facility] Wash Structure of upper lobe of left lung / Unknown 11/03/2024 10:54 AM EDT 11/03/2024 11:39 AM EDT Bren Butler MD LAB MICROBIOLOGY - GENERAL ORDER SAVANNA Final Result Performing Organization Address City/[facility]/ZIP Co de Phone Number [facility] [address] [place] [address], [place] [phone] * Concentration (11/03/2024 10:54 AM EDT) Only the most recent of2 resultswithin the time period is included. Pathologist [facility] [employer] Concentration Performed 6:05 PM EDT [facility] Wash Structure of upper lobe of left lung / Unknown 11/03/2024 10:54 AM EDT 11/03/2024 11:39 AM EDT Narrative [facility] - 12/16/2024 6:05 PM EDT Performed at: 01 - [facility] [address] [id number] Senior Instructional Designer: Maira Oliver MD, Phone: [phone] Bren Butler MD LAB BLOOD ORDERABLES Edited Resu lt - Final [facility] * Culture, afb and smear with reflex to identification and susceptibility (11/03/2024 10:54 AM EDT) Only the most recent of2 resultswithin the time period is included. AF[employer] Specimen Processing Concentration 12/16/2024 6:05 PM EDT [facility] Acid Fast Smear Negative 12/16/2024 6:05 PM EDT [facility] Acid Fast Culture Negative 12/16/2024 6:05 PM EDT [facility] Comment:No acid fast bacilli isolated after 6 weeks. Wash Structure of upper lobe of left lung / Unknown 11/03/2024 10:54 AM EDT 11/03/2024 11:39 AM EDT Narrative [facility] - 12/16/2024 6:05 PM EDT Performed at: 01 - [facility] [address] [id number] Senior Instructional Designer: Maira Oliver MD, Phone: [phone] Bren Butler MD LAB MICROBIOLOGY - GENERAL ORDER SAVANNA Final Result Performing Organization Address City/[facility]/ZIP Co de Phone Number [facility] * Acid fast bacilli stain (11/03/2024 10:54 AM EDT) Only the most recent of2 resultswithin the time period is included. [employer] Stain Result No Acid fast bacilli seen on direct smear (Fuchsin method, 1000x) No Acid Fast Bacilli seen on direct smear 11/03/2024 5:07 PM EDT [facility] Wash Structure of upper lobe of left lung / Unknown 11/03/2024 10:54 AM EDT 11/03/2024 11:39 AM EDT Bren Butler MD LAB MICROBIOLOGY - GENERAL ORDER SAVANNA Final Result [facility] [address] [place] [address], * Culture fungal, other (11/03/2024 10:54 AM EDT) Only the most recent of2 resultswithin the time period is included. Culture, Fungus Negative for Fungus after 4 Weeks 12/03/2024 12:05 PM EDT [facility] Wash Structure of upper lobe of left lung / Unknown 11/03/2024 10:54 AM EDT 11/03/2024 11:39 AM EDT Bren Butler MD LAB MICROBIOLOGY - GENERAL ORDER SAVANNA Final Result [facility] [address] [place] [address], * Non-gynecologic cytology (11/03/2024 10:31 AM EDT) [...] Negative for malignant cells. 11/05/2024 9:07 AM EDT [facility] Specimen A Adequacy Satisfactory for evaluation 11/05/2024 9:07 AM EDT [facility] Specimen B Adequacy Satisfactory for evaluation 11/05/2024 9:07 AM EDT [facility] Specimen C Adequacy Satisfactory for evaluation 11/05/2024 9:07 AM EDT [facility] Specimen D Adequacy Satisfactory for evaluation 11/05/2024 9:07 AM EDT [facility] Gross Description A. Lung, Right [...] in formalin at 1330 11/05/2024 9:07 AM EDT [facility] Disclaimer Unless otherwise specified, all tissue is 10% NB formalin fixed and paraffin embedded. Technical cytopathology services provided by [facility], at [address] [place] [address] (CLIA # [id number]/Eren Alfaro MD, Type Bar And Segment Assembler.) 11/05/2024 9:07 AM EDT [facility] Brushing Structure of upper lobe [...] MD LAB CYTOLOGY ORDERABLES Final Re sult [facility] [address] [place] [address], * Tissue exam (11/03/2024 10:29 AM EDT) [...] for microorganisms (Controls appropriate) 3:58 PM EDT [facility] Gross Description A. Lung, Right [...] with six unstained slides between levels. MEENA 3:58 PM EDT [facility] Disclaimer NOTE: The immunohistochemical tests and in situ hybridization tests were developed and their performance characteristics were determined by [facility]. They have not been cleared [...] fixed and paraffin embedded. 3:58 PM EDT [facility] Tissue Structure of upper lobe of right lung / Unknown 11/03/2024 10:29 AM EDT 11/03/2024 11:41 AM EDT Tissue specimen (specimen) Structure of upper lobe of left lung / Unknown 11/03/2024 10:48 AM EDT 11/03/2024 11:41 AM EDT us Bren Butler MD LAB PATHOLOGY ORDERABLES Final R esult [facility] [address] [place] [address], [place] [phone] * Fine needle aspiration (11/03/2024 10:26 AM [...] Negative for malignant cells. 11/05/2024 9:09 AM EDT [facility] Specimen A Adequacy Satisfactory for evaluation 11/05/2024 9:09 AM EDT [facility] Specimen B Adequacy Satisfactory for evaluation 11/05/2024 9:09 AM EDT [facility] Specimen C Adequacy Satisfactory for evaluation 11/05/2024 9:09 AM EDT [facility] Specimen D Adequacy Unsatisfactory for evaluation 11/05/2024 9:09 AM EDT [facility] Specimen E Adequacy Satisfactory for evaluation 11/05/2024 9:09 AM EDT [facility] Gross Description A. Lung, Right [...] in formalin at 1100 11/05/2024 9:09 AM EDT [facility] Disclaimer Unless otherwise specified, all tissue is 10% NB formalin fixed and paraffin embedded. Technical cytopathology services provided by [facility], at [address] [place] [address] (IA # [id number]/Britta Alfaro MD, Type Bar And Segment Assembler.) 11/05/2024 9:09 AM EDT [facility] Fine Needle Aspirate Structure of [...] 11:22 AM EDT 11/04/2024 9:52 AM EDT Bren Butler MD LAB PATHOLOGY ORDERABLES Final R esult [facility] [address] [place] [address], * TH AN ENDOTRACHEAL(NO CHARGE) (11/03/2024 10:09 AM EDT) Guy Navarro CRNA - 11/03/2024 10:09 AM EDT Guy Spivey CRNA 11/03/2024 10:49 AM General Information and Staff Patient location during procedure: OR Resident/ALCOHOLISM WORKER: Gyu Spivey CRNA Performed: resident/ALCOHOLISM WORKER/CAA Performed by: Guy Spivey CRNA Authorized by: [...] GEMUSE QTc 439 ms GEMUSE P Wave [place] 85 degrees GEMUSE R [place] 62 degrees GEMUSE T [place] 87 degrees GEMUSE ECG Interpretation Normal sinus rhythm Biatrial enlargement Septal infarct , age undetermined Abnormal ECG No previous ECGs available Confirmed by MICHEAL RAHMAN ([id number]) on 11/02/2024 2:23:31 PM GEMUSE 11/02/2024 8:30 AM EDT 11/02/2024 2:23 PM EDT us Bren Butler MD ECG ORDERABLES Final Result GEMUSE * (ABNORMAL) CBC auto differential (11/02/2024 8:12 AM EDT) WBC 10.6 4.8 - 10.8 K/mcL LAB HEMETOLOGY METHOD 11/02/2024 9:23 AM EDT [facility] RBC 5.00 4.50 - 5.50 M/mcL LAB HEMETOLOGY METHOD 11/02/2024 9:23 AM [facility] Hemoglobin 15.0 13.5 - 17.5 g/dL LAB HEMETOLOGY METHOD 11/02/2024 9:23 AM [facility] Hematocrit 46.4 42.0 - 54.0 % LAB HEMETOLOGY METHOD 11/02/2024 9:23 AM [facility] MCV 92.4 79.0 - 98.0 FL LAB HEMETOLOGY METHOD 11/02/2024 9:23 AM [facility] MCH 29.9 27.0 - 32.0 pcg LAB HEMETOLOGY METHOD 11/02/2024 9:23 AM [facility] MCHC 32.3 32.0 - 37.0 g/dL LAB HEMETOLOGY METHOD 11/02/2024 9:23 AM [facility] RDW 13.6 11.0 - 15.0 % LAB HEMETOLOGY METHOD 11/02/2024 9:23 AM [facility] Platelets 321 130 - 400 K/mcL LAB HEMETOLOGY METHOD 11/02/2024 9:23 AM [facility] MPV 10.1 7.0 - 11.0 FL LAB HEMETOLOGY METHOD 11/02/2024 9:23 AM [facility] NRBC 0.0 <1.0 % LAB HEMETOLOGY METHOD 11/02/2024 9:23 AM [facility] NRBC Absolute 0.00 <0.10 K/mcL LAB HEMETOLOGY METHOD 11/02/2024 9:23 AM [facility] Neutrophils Relative 71.7 % LAB HEMETOLOGY METHOD 11/02/2024 9:23 AM [facility] Lymphocytes Relative 17.5 % LAB HEMETOLOGY METHOD 11/02/2024 9:23 AM [facility] Monocytes Relative 7.0 % LAB HEMETOLOGY METHOD 11/02/2024 9:23 AM [facility] Eosinophils Relative 2.8 % LAB HEMETOLOGY METHOD 11/02/2024 9:23 AM [facility] Basophils Relative 0.7 % LAB HEMETOLOGY METHOD 11/02/2024 9:23 AM [facility] Immature Granulocytes Relative 0.3 % LAB HEMETOLOGY METHOD 11/02/2024 9:23 AM [facility] Neutrophils Absolute 7.56(H) 1.50 - 7.00 K/mcL LAB HEMETOLOGY METHOD 11/02/2024 9:23 AM [facility] Lymphocytes Absolute 1.85 1.00 - 5.00 K/mcL LAB HEMETOLOGY METHOD 11/02/2024 9:23 AM [facility] Monocytes Absolute 0.74 0.20 - 1.00 K/mcL LAB HEMETOLOGY METHOD 11/02/2024 9:23 AM [facility] Eosinophils Absolute 0.30 0.00 - 0.50 K/mcL LAB HEMETOLOGY METHOD 11/02/2024 9:23 AM EDT [facility] Basophils Absolute 0.07 0.00 - 0.20 K/[facility] LAB HEMETOLOGY METHOD 11/02/2024 9:23 AM EDT [facility] Immature Granulocytes Absolute 0.03 0.00 - 0.03 K/[facility] HEMETOLOGY METHOD 11/02/2024 9:23 AM EDT [facility] Blood Venous blood specimen / Unknown Venipuncture / Unknown 11/02/2024 8:12 AM EDT 11/02/2024 9:17 AM EDT us Bren Butler MD LAB BLOOD ORDERABLES Final Resul t Performing Organization Address City/[facility]/ZIP Co de Phone Number [facility] [address] [place] [address], [place] [phone] * Activated partial thromboplastin time (11/02/2024 8:12 AM EDT) aPTT 35.5 24.1 - 39.3 sec LAB COAGULATION METHOD 11/02/2024 9:43 AM EDT [facility] Blood Venous blood specimen / Unknown Venipuncture / Unknown 11/02/2024 8:12 AM EDT 11/02/2024 9:17 AM EDT us Bren Butler MD LAB BLOOD ORDERABLES Final Resul t [facility] [address] [place] [address], [place] [phone] * Prothrombin time with INR (11/02/2024 8:12 AM EDT) Protime 10.6 10.6 - 13.9 sec LAB COAGULATION METHOD 11/02/2024 9:43 AM EDT [facility] INR 0.8 LAB COAGULATION METHOD 11/02/2024 9:43 AM EDT [facility] Blood Venous blood specimen / Unknown Venipuncture / Unknown 11/02/2024 8:12 AM EDT 11/02/2024 9:17 AM EDT us Bren Butler MD LAB BLOOD ORDERABLES Final Resul t Performing Organization Address [facility]/ZIP Co de Phone Number [facility] [address] [place] [address], [place] [phone] * Type and screen (11/02/2024 8:12 AM EDT) ABO Group O 11/02/2024 11:41 AM EDT [facility] Rh Type Positive 11/02/2024 11:41 AM EDT [facility] Antibody Screen Negative 11/02/2024 11:41 AM EDT [facility] Blood Venous blood specimen / Unknown Venipuncture / Unknown 11/02/2024 8:12 AM EDT 11/02/2024 9:17 AM EDT us Bren Butler MD LAB BLOOD BANK TEST ORDERABLES F inal Result Performing Organization Address [facility] de Phone Number [facility] [address] [place] [address], [place] [phone] * Basic metabolic panel (11/02/2024 8:12 AM EDT) Sodium 141 133 - 145 mmol/L LAB CHEMISTRY METHOD 11/02/2024 9:44 AM EDT [facility] Potassium 4.7 3.5 - 5.5 mmol/L LAB CHEMISTRY METHOD 11/02/2024 9:44 AM EDT [facility] Chloride 106 96 - 110 mmol/L LAB CHEMISTRY METHOD 11/02/2024 9:44 AM EDT [facility] CO2 31 21 - 32 mmol/L LAB CHEMISTRY METHOD 11/02/2024 9:44 AM EDT [facility] Anion Gap 4 3 - 11 LAB CHEMISTRY METHOD 11/02/2024 9:44 AM [facility] Glucose 93 70 - 100 mg/dL LAB CHEMISTRY METHOD 11/02/2024 9:44 AM [facility] BUN 8 5 - 25 mg/dL LAB CHEMISTRY METHOD 11/02/2024 9:44 AM [facility] Creatinine 0.76 0.70 - 1.30 mg/dL LAB CHEMISTRY METHOD 11/02/2024 9:44 AM [facility] eGFR 105 >=60 mL/min/1. 73m2 LAB CHEMISTRY METHOD 11/02/2024 9:44 AM [facility] Comment:Calculation based on the Chronic Kidney Disease Epidemiology Collaboration (CKD-EPI) equation refit without adjustment for race. BUN/Creatinine Ratio 10.5 LAB CHEMISTRY METHOD 11/02/2024 9:44 AM [facility] Calcium 9.9 8.5 - 10.5 mg/dL LAB CHEMISTRY METHOD 11/02/2024 9:44 AM [facility] Blood Venous blood specimen / Unknown Venipuncture / Unknown 11/02/2024 8:12 AM EDT 11/02/2024 9:17 AM EDT us Bren Butler MD LAB BLOOD ORDERABLES Final Resul t [facility] [address] [place] [address], * CT Chest wo Contrast (11/02/2024 8:05 AM EDT) Anatomical Region Laterality Modality Body Computed Tomogra phy 11/03/2024 8:5 1 AM EDT Impressions 11/03/2024 9:24 AM EDT Impression: 1. Multiple waxing and waning bilateral lung nodules, as described. The dominant nodules in both upper lobes and in the left lower lobe have improved since the previous studies, suggesting a benign, infectious/inflammatory process. Continued follow-up is recommended 2. No developing thoracic lymphadenopathy. Telerad TAWNYA ([id number]) -------- FINAL REPORT -------- Dictated By: Damaris Garcia Dictated Date: 11/03/2024 08:51 ET Assigned Physician: Damaris Garcia Reviewed and Electronically Signed By: Damaris Garcia Signed Date: 11/03/2024 09:24 ET Workstation ID: [id number] Transcribed By: Self Edit Transcribed Date: 11/03/2024 08:51 ET Narrative 11/03/2024 9:24 AM EDT History: Lung nodule greater than 8 mm. Comparison: 09/17/24, 06/30/24 outside studies; PET/CT 09/30/24 ([facility]) Technique: Helical volumetric imaging of the thorax was performed without IV contrast. DLP: 214.46 mGy/cm Jootaer Iterative reconstruction technique Findings: The trachea and [...] Comparison: 09/17/24, 06/30/24 outside studies; PET/CT 09/30/24 ([facility]) Technique: Helical volumetric imaging of the thorax was performed withoutIV contrast. DLP: 214.46 mGy/cm Jootaer Iterative reconstruction technique Findings: The trachea and [...] through 175 series 3). This lesion measures [id number] x 18 mm in maximum axial dimensions, [...] recommended 2. No developing thoracic lymphadenopathy. Telerad TAWNYA ([id number]) -------- FINAL REPORT -------- Dictated By: Damaris Garcia Dictated Date: 11/03/2024 08:51 ET Assigned Physician: Damaris Garcia Reviewed and Electronically Signed By: Damaris Garcia Signed Date: 11/03/2024 09:24 ET Workstation ID: [id number] Transcribed By: Self Edit Transcribed Date: 11/03/2024 08:51 ET Bren Butler MD IMG CT PROCEDURES Final Result from Last 3 Months Insurance [facility] Advance Directives * Full Code - [...] currently active code status orders. Care Teams Window Repairer Relationship Specialty Start Date End Date Homero Livingston MD [address] [place] [address] [address] [place] PCP - General Family Medicine 10/26/24
== END 2025-01-07 11:13 | disposition home or self-care (01) ==
LOC: HO.HMCFM 10:13
PROVIDERS: PCP Family Medicine; Visit Provider Family Medicine
DX: K20.90 Esophagitis, unspecified without bleeding (principal)

== ENCOUNTER → 2025-01-07 10:12 | Outpatient (BNVA) | payer OTHER, SELFPAY | PROVIDERS: PCP Family Medicine; Visit Provider Family Medicine | DX: I10 Essential (primary) hypertension (principal); K20.90 Esophagitis, unspecified without bleeding; J44.9 Chronic obstructive pulmonary disease, unspecified; R91.8 Other nonspecific abnormal finding of lung field | CPT/HCPCS: 99212 ==